=== PATIENT | male | born 1970 | race Caucasian/White ===

== ENCOUNTER 2017-06-14 00:19 | Inpatient (IN) | payer SELFPAY ==
[~2017-06-14] VITALS: Ht 172.7 cm; Wt 76.9 kg
[2017-06-14] VITALS (9 sets, daily range): BP systolic 126–200; BP diastolic 88–130; PULSE 69–110; RESP 16–20; TEMP 98–98.5; O2SAT 94–98
--- NOTE | 2017-06-14 00:40 | PD ---
HPI Chief Complaint: Mcgrath act Time Seen by Provider: 00:27 Travel History International Travel<30 days: No Contact w/Intl Traveler<30days: No Traveled to known affect area: No History of Present Illness HPI 46-year-old white male presents to emergency department under Mcgrath act by PD. The patient had sent text messages to his mother of a suicidal nature. The patient had stated that he was going to cut himself. He no longer wanted to be on this world. The patient's life has been spiraling out of control recently. He had lost his job. His mother had taken her vehicle back. He's had a history of alcohol abuse, smokes crack on occasion and opiate abuse. He just started using heroin in the last month. He was arrested and lost his job over it. Is currently unemployed. The patient here denies any true suicidal ideation. He denies any homicidal ideation. He denies any toxic ingestions. He denies any medical complaints. PFSH Past Medical History Narrative Medical Hypertension, hypercholesterolemia, substance abuse Arthritis: No Asthma: No Autoimmune Disease: No Blood Disorders: No Heart Rhythm Problems: No Cancer: No High Cholesterol: Yes Chemotherapy: No Congestive Heart Failure: No COPD: No Cerebrovascular Accident: No Diminished Hearing: No GERD: No Glaucoma: No Hepatitis: No Hiatal Hernia: No Hypertension: No Kidney Stones: Yes Psychiatric: No Myocardial Infarction: No Radiation Therapy: No Renal Failure: No Seizures: No Sleep Apnea: No Thyroid Disease: No Ulcer: No Tetanus Vaccination: < 5 Years Past Surgical History Surgical History: No Previous Surgery AICD: No Genitourinary Surgery: No Pacemaker: No Other Surgery: No Social History Alcohol Use: Yes Tobacco Use: Yes (1 ppd) Substance Use: Yes Allergies-Medications (Allergen,Severity, Reaction): Coded Allergies: No Known Allergies (Verified , 01/11/14) Reported Meds & Prescriptions Reported Meds & Active Scripts Active Review of Systems General / Constitutional: No: Fever Eyes: No: Visual changes HENT: No: Headaches Cardiovascular: No: Chest Pain or Discomfort Respiratory: No: Shortness of Breath Gastrointestinal: No: Abdominal Pain Genitourinary: No: Dysuria Musculoskeletal: No: Pain Skin: No Rash Neurologic: No: Weakness Psychiatric: Positive: Depression, Suicidal Ideations, Mood Disorder, Substance Abuse, No: Anxiety, Disorder of Thought, Homicidal Ideation Endocrine: No: Polydipsia Hematologic/Lymphatic: No: Easy Bruising Physical Exam Narrative GENERAL: Well-nourished, well-developed patient. SKIN: Warm and dry. HEAD: Normocephalic and atraumatic. EYES: No scleral icterus. No injection or drainage. ENT: No nasal drainage noted. Mucous membranes pink. Airway patent. NECK: Supple, trachea midline. Moves head freely without obvious discomfort. CARDIOVASCULAR: Regular rate and rhythm without murmurs, gallops, or rubs. RESPIRATORY: Breath sounds equal bilaterally. No accessory muscle use. GASTROINTESTINAL: Abdomen soft, non-tender, nondistended. EXTREMITIES: No cyanosis or edema. BACK: Nontender without obvious deformity. No CVA tenderness. NEURO: Patient is alert and oriented. no sensorimotor deficits. Nonfocal. Normal speech. PSYCH: No delusions. No auditory or visual hallucinations. Data Data Orders Orders Complete Blood Count With Diff (06/14/17 00:33) Comprehensive Metabolic Panel (06/14/17 00:33) Psych Screen (06/14/17 00:33) Drug Screen, Random Urine (06/14/17 00:33) Alcohol (Ethanol) (06/14/17 00:33) Salicylates (Aspirin) (06/14/17 00:33) Tylenol (Acetaminophen) (06/14/17 00:33) Lisinopril (Prinivil) (06/14/17 00:45) MDM Medical Decision Making Medical Screen Exam Complete: Yes Emergency Medical Condition: Yes Medical Record Reviewed: Yes Differential Diagnosis MDM: High Differential diagnoses: Schizophrenia, schizoaffective disorder, bipolar, anxiety, depression, adjustment reaction, mood disorder NOS, ODD, depressive disorder NOS, dementia, dementia with agitation, psychosis NOS, substance induced mood disorder, DMDD, Asperger syndrome, infection,electrolyte abnormality, malingering. Narrative Course Mental health screening discussed with the patient. Psychiatric screen ordered. The patient is been medically cleared. This is a 46-year-old white male with a history of substance abuse as well as poorly controlled hypertension due to compliance. He had recently lost his job , was arrested for buying heroin. His mother he lives with took back his vehicle that she had loaned to him. The patient states that his life is spiraling out of control. The patient is given his normal 20 mg dose of lisinopril. Is medical clearance for psychiatric admission, polysubstance abuse, hypertension Diagnosis Primary Impression: Medical clearance for psychiatric admission Additional Impressions: Polysubstance abuse Hypertension Qualified Codes: I10 - Essential (primary) hypertension Condition: Stable Curt Gaytan Jun 14, 2017 00:40
[2017-06-14] MEDS ORDERED: LISINOPRIL 20 MG TAB PO ONE (00:45)
[2017-06-14 04:19] LABS: ACETAMINOPHEN LESS THAN 2.0 MCG/ML (10.0-30.0); ALCOHOL 269 MG/DL (0-5); ALKALINE PHOSPHATASE 127 U/L (45-117); ALT (GPT) 134 U/L (12-78); ANION GAP 14 MEQ/L (5-15); AST (GOT) 118 U/L (15-37); BICARBONATE 23.1 MEQ/L (21.0-32.0); CHLORIDE 104 MEQ/L (98-107); GLOMERULAR FILTRATION RATE 92 ML/MIN (>89); POTASSIUM 2.9 MEQ/L (3.5-5.1); SODIUM (NA) 141 MEQ/L (136-145); TOTAL BILIRUBIN ADULT 0.5 MG/DL (0.2-1.0)
[2017-06-14 04:20] LABS: AUTOMATED NEUTROPHIL # 6.1 TH/MM3 (1.8-7.7); BASOPHIL # 0.1 TH/MM3 (0-0.2); BASOPHIL % 0.6 % (0.0-2.0); EOSINOPHIL # 0.3 TH/MM3 (0-0.4); EOSINOPHIL % 3.4 % (0.0-4.0); HEMATOCRIT 48.9 % (39.0-51.0); HEMO FLAGS DIFF FINAL; LYMPH % 28.7 % (9.0-44.0); LYMPHOCYTE # 2.9 TH/MM3 (1.0-4.8); MEAN CELL VOLUME 92.3 FL (80.0-100.0); MEAN CORPUSCULAR HGB CONC 34.7 % (32.0-36.0); MONO % 7.5 % (0.0-8.0); NEUT % 59.8 % (16.0-70.0); PLATELET COUNT 229 TH/MM3 (150-450); RED CELL DISTRIBUTION WIDTH 13.6 % (11.6-17.2); WHITE BLOOD COUNT 10.1 TH/MM3 (4.0-11.0)
[2017-06-14 04:21] LABS: BLOOD UREA NITROGEN 8 MG/DL (7-18)
[2017-06-14 05:00] LABS: AUTOMATED NEUTROPHIL # 5.7 TH/MM3 (1.8-7.7); BASOPHIL % 0.5 % (0.0-2.0); EOSINOPHIL # 0.4 TH/MM3 (0-0.4); EOSINOPHIL % 3.6 % (0.0-4.0); HEMATOCRIT 47.3 % (39.0-51.0); HEMO FLAGS DIFF FINAL; LYMPH % 29.3 % (9.0-44.0); LYMPHOCYTE # 2.9 TH/MM3 (1.0-4.8); MEAN CELL VOLUME 92.4 FL (80.0-100.0); MEAN CORPUSCULAR HEMOGLOBIN 31.4 PG (27.0-34.0); MONO % 8.6 % (0.0-8.0); PLATELET COUNT 213 TH/MM3 (150-450); RED BLOOD COUNT 5.12 MIL/MM3 (4.50-5.90); RED CELL DISTRIBUTION WIDTH 13.5 % (11.6-17.2); WHITE BLOOD COUNT 9.7 TH/MM3 (4.0-11.0)
[2017-06-14 05:16] LABS: ALT (GPT) 124 U/L (12-78)
[2017-06-14 05:24] LABS: ALKALINE PHOSPHATASE 113 U/L (45-117); ANION GAP 12 MEQ/L (5-15); AST (GOT) 111 U/L (15-37); BICARBONATE 25.8 MEQ/L (21.0-32.0); BLOOD UREA NITROGEN 7 MG/DL (7-18); CHLORIDE 102 MEQ/L (98-107); CREATINE KINASE 182 U/L (39-308); GLOMERULAR FILTRATION RATE 99 ML/MIN (>89); SODIUM (NA) 140 MEQ/L (136-145); TOTAL BILIRUBIN ADULT 0.4 MG/DL (0.2-1.0)
[2017-06-14 05:25] LABS: POTASSIUM 3.2 MEQ/L (3.5-5.1)
[2017-06-14] MEDS ORDERED: SODIUM CHLOR 0.9% 1000 ML INJ 1,000 ML IV SCH (06:41)
[2017-06-14] MEDS ORDERED: ONDANSETRON HCL 4 MG/2 ML VIAL IVP PRN (06:45)
[2017-06-14] MEDS ORDERED: SODIUM CHLORIDE 0.9% FLUSH 10 ML FLUSH IV FLUSH PRN (06:45)
[2017-06-14] MEDS ORDERED: LACTULOSE SYRUP 20 GM/30 ML CUP PO PRN (06:45)
[2017-06-14] MEDS ORDERED: ACETAMINOPHEN 325 MG TAB PO PRN (06:45)
[2017-06-14] MEDS ORDERED: BISACODYL 10 MG SUPP RECTAL PRN (06:45)
[2017-06-14] MEDS ORDERED: MAGNESIUM HYDROXIDE SUSP 30 ML CUP PO PRN (06:45)
[2017-06-14] MEDS ORDERED: SENNOSIDES 8.6 MG TAB PO PRN (06:45)
--- NOTE | 2017-06-14 06:48 | PD ---
Data Data Last Documented VS Vital Signs Date Time Temp Pulse Resp B/P (MAP) Pulse Ox O2 Delivery O2 Flow Rate FiO2 06/14/17 06:20 84 16 167/90 (115) 97 Nasal Cannula 2.00 06/14/17 00:36 98.5 Orders Orders Complete Blood Count With Diff (06/14/17 00:33) Comprehensive Metabolic Panel (06/14/17 00:33) Psych Screen (06/14/17 00:33) Drug Screen, Random Urine (06/14/17 00:33) Alcohol (Ethanol) (06/14/17 00:33) Salicylates (Aspirin) (06/14/17 00:33) Tylenol (Acetaminophen) (06/14/17 00:33) Lisinopril (Prinivil) (06/14/17 00:45) Creatine Kinase (Cpk) (06/14/17 04:00) Comprehensive Metabolic Panel (06/14/17 04:00) Lipase (06/14/17 04:00) Troponin I (06/14/17 04:00) Complete Blood Count With Diff (06/14/17 04:00) Admit Order (Ed Use Only) (06/14/17 ) Vital Signs (Adult) Q4H (06/14/17 06:38) Diet Npo (06/14/17 Breakfast) Activity Bed Rest (06/14/17 06:38) Labs Laboratory Tests Test 06/14/17 00:30 06/14/17 01:15 06/14/17 04:00 White Blood Count 10.1 TH/MM3 9.7 TH/MM3 Red Blood Count 5.30 MIL/MM3 5.12 MIL/MM3 Hemoglobin 17.0 GM/DL 16.1 GM/DL Hematocrit 48.9 % 47.3 % Mean Corpuscular Volume 92.3 FL 92.4 FL Mean Corpuscular Hemoglobin 32.0 PG 31.4 PG Mean Corpuscular Hemoglobin Concent 34.7 % 34.0 % Red Cell Distribution Width 13.6 % 13.5 % Platelet Count 229 TH/MM3 213 TH/MM3 Mean Platelet Volume 8.8 FL 9.4 FL Neutrophils (%) (Auto) 59.8 % 58.0 % Lymphocytes (%) (Auto) 28.7 % 29.3 % Monocytes (%) (Auto) 7.5 % 8.6 % Eosinophils (%) (Auto) 3.4 % 3.6 % Basophils (%) (Auto) 0.6 % 0.5 % Neutrophils # (Auto) 6.1 TH/MM3 5.7 TH/MM3 Lymphocytes # (Auto) 2.9 TH/MM3 2.9 TH/MM3 Monocytes # (Auto) 0.8 TH/MM3 0.8 TH/MM3 Eosinophils # (Auto) 0.3 TH/MM3 0.4 TH/MM3 Basophils # (Auto) 0.1 TH/MM3 0.0 TH/MM3 CBC Comment DIFF FINAL DIFF FINAL Differential Comment Blood Urea Nitrogen 8 MG/DL 7 MG/DL Creatinine 0.89 MG/DL 0.83 MG/DL Random Glucose 121 MG/DL 103 MG/DL Total Protein 8.3 GM/DL 7.8 GM/DL Albumin 4.1 GM/DL 3.7 GM/DL Calcium Level 8.6 MG/DL 8.2 MG/DL Alkaline Phosphatase 127 U/L 113 U/L Aspartate Amino Transf (AST/SGOT) 118 U/L 111 U/L Alanine Aminotransferase (ALT/SGPT) 134 U/L 124 U/L Total Bilirubin 0.5 MG/DL 0.4 MG/DL Sodium Level 141 MEQ/L 140 MEQ/L Potassium Level 2.9 MEQ/L 3.2 MEQ/L Chloride Level 104 MEQ/L 102 MEQ/L Carbon Dioxide Level 23.1 MEQ/L 25.8 MEQ/L Anion Gap 14 MEQ/L 12 MEQ/L Estimat Glomerular Filtration Rate 92 ML/MIN 99 ML/MIN Salicylates Level LESS THAN 1.7 MG/DL Acetaminophen Level LESS THAN 2.0 MCG/ML Ethyl Alcohol Level 269 MG/DL Urine Opiates Screen POS Urine Barbiturates Screen NEG Urine Amphetamines Screen NEG Urine Benzodiazepines Screen NEG Urine Cocaine Screen POS Urine Cannabinoids Screen NEG Total Creatine Kinase 182 U/L Troponin I LESS THAN 0.02 NG/ML Lipase 2923 U/L [facility] Medical Record Reviewed: Yes Supervised Visit with LIZZY: No Narrative Course I was called to the bedside because the patient complained of left-sided chest pain. Overall the workup is less concerning for a coronary pathology given the lipase of 2900. Tn and EKG normal. Case discussed with Dr. Feng for [facility]. Etiology of pancreatitis is unknown. Diagnosis Primary Impression: Medical clearance for psychiatric admission Additional Impressions: Polysubstance abuse Hypertension Qualified Codes: I10 - Essential (primary) hypertension Admitting Information Admitting Physician Requests: Admit Condition: Stable Kolby Hylton MD Jun 14, 2017 06:48
[2017-06-14] MEDS: DOCUSATE SODIUM 50 MG/SENNA 8.6 MG TAB PO SCH ×2 (09:00→20:58)
[2017-06-14] MEDS: FAMOTIDINE 20 MG/2 ML VIAL IV PUSH SCH ×2 (09:00→20:58)
[2017-06-14] MEDS: SODIUM CHLORIDE 0.9% FLUSH 10 ML FLUSH IV FLUSH SCH ×2 (09:00→20:57)
--- NOTE | 2017-06-14 11:19 | PD.PSY.CON ---
Provisional Diagnosis Admission Date Jun 14, 2017 at 06:39 Tavares I. Substance induced mood disorder, cocaine abuse, opiate abuse, alcohol abuse/ intoxication History of Present Illness Service Psychiatry Consult Requested By Attending MFransisco. Reason for Consult [facility] act Primary Care Physician Dwayne Boyd MD HPI Patient is a 46-year-old white male initially brought in under [facility] act after he tacks did message to his mother that he wished to end his life. Patient seen screened in the ED urine toxicology positive for opiates and cocaine blood alcohol level of 296. Patient also complained of left-sided chest pain and was admitted to the medical unit for further assessment of that issue. SSc patient related to [facility] act. Patient seen in his room nurse Lianna present throughout session patient is alert and oriented calm cooperative slender balding white male. He is calm cooperative with me. He says he is somewhat frustrated with losing his job and having a vehicle and not satisfied with relationship with his children. He denies any suicidal homicidal ideation intent or plan at any time with this. He denies any previous suicidality ideation intent or plan or attempt. He denies any prior psychiatric contact hospitalizations his psychotropic medications. Patient gives a long history of multiple drug abuse including hallucinogenic's mushrooms opiates benzodiazepines including intravenous drug use of heroin and perhaps Dilaudid. Demises the frequency of the cocaine in the opiate use. The acknowledges alcohol use essentially every day more the evening of hard liquor and beer. He acknowledges 2-3 DUIs. He is acknowledges multiple detoxes in the past. In any event at the present time patient does not meet Mcgrath act criteria I will lift the [facility] act. There is no recommendation for medication by me as okay by psych for discharge and is medically cleared and stable. Mother wishes further to address his addictions she may, at her discretion, follow [facility] staff on her son. Otherwise I could recommend voluntary outpatient substance abuse assessment at [facility], and also referral to AA and NA Review of Systems Constitutional: DENIES: Diaphoretic episodes, Fatigue, Fever, Weight gain, Weight loss, Chills, Dizziness, Change in appetite, Night Sweats Endocrine: DENIES: Heat/cold intolerance, Polydipsia, Polyuria, Polyphagia Eyes: DENIES: Blurred vision, Diplopia, Eye inflammation, Eye pain, Vision loss , Photosensitivity, Double Vision Ears, nose, mouth, throat: DENIES: Tinnitus, Hearing loss, Vertigo, Nasal discharge, Oral lesions, Throat pain, Hoarseness, Ear Pain, Running Nose, Epistaxis, Sinus Pain, Toothache, Odynophagia Respiratory: DENIES: Apneas, Cough, Snoring, Wheezing, Hemoptysis, Sputum production, Shortness of breath Cardiovascular: DENIES: Chest pain, Palpitations, Syncope, Dyspnea on Exertion , PND, Lower Extremity Edema, Orthopnea, Claudication Gastrointestinal: DENIES: Abdominal pain, Black stools, Bloody stools, Constipation, Diarrhea, Nausea, Vomiting, Difficulty Swallowing, Anorexia Genitourinary: DENIES: Sexual dysfunction, Urinary frequency, Urinary incontinence, Urgency, Hematuria, Dysuria, Nocturia, Penile Discharge, Testicular Pain, Testicular Swelling Musculoskeletal: DENIES: Joint pain, Muscle aches, Stiffness, Joint Swelling, Back pain, Neck pain Integumentary: DENIES: Abnormal pigmentation, Nail changes, Pruritus, Rash Hematologic/lymphatic: DENIES: Bruising, Lymphadenopathy Immunologic/allergic: DENIES: Eczema, Urticaria Neurologic: DENIES: Abnormal gait, Headache, Localized weakness, Paresthesias, Seizures, Speech Problems, Tremor, Poor Balance Psychiatric: COMPLAINS OF: Depression (mild somewhat environmentally related), DENIES: Anxiety, Confusion, Mood changes, Hallucinations, Agitation, Suicidal Ideation, Homicidal Ideation, Delusions Past Family Social History Coded Allergies: No Known Allergies (Verified Allergy, Unknown, 06/14/17) Past Medical History See MedSur assessments Current Medications Medications (Trade) Dose Ordered Sig/Karolina Route Start Time Stop Time Status Last Admin Sodium Chloride 1,000 ml @ 100 mls/hr Q10H IV 06/14/17 06:41 06/14/17 07:27 (NS Flush) 2 ml UNSCH PRN IV FLUSH 06/14/17 06:45 (NS Flush) 2 ml BID IV FLUSH 06/14/17 09:00 (Zofran Inj) 4 mg Q6H PRN IVP 06/14/17 06:45 (Tylenol) 650 mg Q6H PRN PO 06/14/17 06:45 (Morphine Inj) 2 mg Q3H PRN IV 06/14/17 07:00 (Roxicodone) 5 mg Q4H PRN PO 06/14/17 06:45 (Alla-Colace) 1 tab BID PO 06/14/17 09:00 (Milk Of Magnesia Liq) 30 ml Q12H PRN PO 06/14/17 06:45 (Senokot) 17.2 mg Q12H PRN PO 06/14/17 06:45 (Dulcolax Supp) 10 mg DAILY PRN RECTAL 06/14/17 06:45 (Lactulose Liq) 30 ml DAILY PRN PO 06/14/17 06:45 (Pepcid Inj) 20 mg Q12HR IV PUSH 06/14/17 09:00 Family Psych History Patient denies Social History Patient his 2 children Patient's Strengths (min. 2) Patient verbal irritable [facility] appears to have supportive mother Physical Exam Please see MedSur assessments Vital Signs Vital Signs Date Time Temp Pulse Resp B/P (MAP) Pulse Ox O2 Delivery O2 Flow Rate FiO2 06/14/17 07:13 79 20 154/88 (110) 98 Nasal Cannula 2.00 06/14/17 00:36 98.5 Lab Results Test 06/14/17 00:30 06/14/17 01:15 06/14/17 04:00 White Blood Count 10.1 TH/MM3 9.7 TH/MM3 Red Blood Count 5.30 MIL/MM3 5.12 MIL/MM3 Hemoglobin 17.0 GM/DL 16.1 GM/DL Hematocrit 48.9 % 47.3 % Mean Corpuscular Volume 92.3 FL 92.4 FL Mean Corpuscular Hemoglobin 32.0 PG 31.4 PG Mean Corpuscular Hemoglobin Concent 34.7 % 34.0 % Red Cell Distribution Width 13.6 % 13.5 % Platelet Count 229 TH/MM3 213 TH/MM3 Mean Platelet Volume 8.8 FL 9.4 FL Neutrophils (%) (Auto) 59.8 % 58.0 % Lymphocytes (%) (Auto) 28.7 % 29.3 % Monocytes (%) (Auto) 7.5 % 8.6 % Eosinophils (%) (Auto) 3.4 % 3.6 % Basophils (%) (Auto) 0.6 % 0.5 % Neutrophils # (Auto) 6.1 TH/MM3 5.7 TH/MM3 Lymphocytes # (Auto) 2.9 TH/MM3 2.9 TH/MM3 Monocytes # (Auto) 0.8 TH/MM3 0.8 TH/MM3 Eosinophils # (Auto) 0.3 TH/MM3 0.4 TH/MM3 Basophils # (Auto) 0.1 TH/MM3 0.0 TH/MM3 CBC Comment DIFF FINAL DIFF FINAL Differential Comment Blood Urea Nitrogen 8 MG/DL 7 MG/DL Creatinine 0.89 MG/DL 0.83 MG/DL Random Glucose 121 MG/DL 103 MG/DL Total Protein 8.3 GM/DL 7.8 GM/DL Albumin 4.1 GM/DL 3.7 GM/DL Calcium Level 8.6 MG/DL 8.2 MG/DL Alkaline Phosphatase 127 U/L 113 U/L Aspartate Amino Transf (AST/SGOT) 118 U/L 111 U/L Alanine Aminotransferase (ALT/SGPT) 134 U/L 124 U/L Total Bilirubin 0.5 MG/DL 0.4 MG/DL Sodium Level 141 MEQ/L 140 MEQ/L Potassium Level 2.9 MEQ/L 3.2 MEQ/L Chloride Level 104 MEQ/L 102 MEQ/L Carbon Dioxide Level 23.1 MEQ/L 25.8 MEQ/L Anion Gap 14 MEQ/L 12 MEQ/L Estimat Glomerular Filtration Rate 92 ML/MIN 99 ML/MIN Salicylates Level LESS THAN 1.7 MG/DL Acetaminophen Level LESS THAN 2.0 MCG/ML Ethyl Alcohol Level 269 MG/DL Urine Opiates Screen POS Urine Barbiturates Screen NEG Urine Amphetamines Screen NEG Urine Benzodiazepines Screen NEG Urine Cocaine Screen POS Urine Cannabinoids Screen NEG Total Creatine Kinase 182 U/L Troponin I LESS THAN 0.02 NG/ML Lipase 2923 U/L Mental Status Examination Appearance: Appropriate Consciousness: Alert Orientation: x4 Motor Activity: Normal gait Speech: Unremarkable Language: Adequate Fund of Knowledge: Adequate Attention and Concentration: Adequate Memory: Unremarkable Mood: Appropriate, Other (mildly dysphoric) Affect: Other (slight decreased range and intensity) Thought Process & Associations: Intact Thought Content: Appropriate Hallucination Type: None Delusion Type: None Suicidal Ideation: No Suicidal Plan: No Suicidal Intention: No Homicidal Ideation: No Homicidal Plan: No Homicidal Intention: No Insight: Fair Judgment: Poor Assessment & Plan Problem List: (1) Substance induced mood disorder ICD Codes: F19.94 - Other psychoactive substance use, unspecified with psychoactive substance-induced mood disorder (2) Alcohol abuse with intoxication ICD Codes: F10.129 - Alcohol abuse with intoxication, unspecified (3) Cocaine abuse ICD Codes: F14.10 - Cocaine abuse, uncomplicated (4) Opiate abuse, continuous ICD Codes: F11.10 - Opioid abuse, uncomplicated Assessment & Plan Estimated LOS: days patient does not meet Mcgrath criteria will lift Mcgrath act. Is okay by psych for discharge when medically clear and stable, no Rx by me, strong referral [facility] act involuntary outpatient substance abuse assessment, strong referral to AA/and a. Would suggest if mother wishes to further adjust patient's addictions she may follow act with court. Thanks for consult I'll sign off the present time please reconsult as necessary Discharge Planning See above Request HC Surrog/Guard Advoc?: No Lorenzo Fatima MD Jun 14, 2017 11:19
--- NOTE | 2017-06-14 12:27 | EKG ---
Date Performed: 06/14/2017 Time Performed: 03:06:20 PTAGE: 46 years EKG: Sinus rhythm POSSIBLE LEFT VENTRICULAR HYPERTROPHY PROLONGED QT INTERVAL ABNORMAL ECG NO PREVIOUS TRACING DOCTOR: Barron Ty Interpretating Date/Time 06/14/2017 12:26:40
--- NOTE | 2017-06-14 12:59 | HHI.HP ---
HPI Service [facility] Primary Care Physician Dwayne Boyd MD Admission Diagnosis Pancreatitis, Chest Pain, EtOH Intox, PSA Diagnoses: Chief Complaint: Chest pain/abdominal pain Travel History International Travel<30 Days: No Contact w/Intl Traveler <30 Da: No Traveled to Known Affected Are: No History of Present Illness This is a 46-year-old male with history of hypertension, dyslipidemia and substance abuse Mcgrath acted for suicidal ideations. At the emergency department , patient complaining of chest pain, workup was negative for cardiac pathology but lipase was elevated. Patient admitted for pancreatitis. Presently, patient is complaining of mild chest pain, anxiety like, nonradiating, not associated with nausea, vomiting or shortness of breath, described as a vague. He is also complaining of mild abdominal pain and cough. Cough is productive with greenish sputum with mild shortness of breath. Patient is afebrile, presently no nausea, vomiting or diarrhea. Patient however had a recent episode of nausea, vomiting and diarrhea which has since resolved. Review of Systems ROS Limitations: Other (All other pertinent systems were reviewed and are negative.) Past Family Social History Past Medical History Hypertension Dyslipidemia Substance abuse Kidney stones Tobacco abuse Past Surgical History Ankle surgery ESWL Reported Medications None Allergies: Coded Allergies: No Known Allergies (Verified Allergy, Unknown, 06/14/17) Family History No history of cardiac pathology in the family Social History Smokes about one pack a day for the last 30 years Has been drinking about 6-8 shots of alcohol every day. Physical Exam Vital Signs Vital Signs Date Time Temp Pulse Resp B/P (MAP) Pulse Ox O2 Delivery O2 Flow Rate FiO2 06/14/17 08:00 98.2 82 16 160/99 (119) 97 06/14/17 07:13 79 20 154/88 (110) 98 Nasal Cannula 2.00 06/14/17 06:20 84 16 167/90 (115) 97 Nasal Cannula 2.00 06/14/17 03:50 84 06/14/17 00:39 18 06/14/17 00:36 98.5 110 18 200/130 (153) 98 Physical Exam Not in distress, well-nourished, looks stated age, anxious. PERRL, pink conjunctiva without injection, anicteric Nose without bleeding, airway patent, oropharynx clear Supple neck, no masses or thyromegaly, trachea midline Normal rate and regular rhythm, no murmurs gallops or rubs appreciated. Clear to auscultation and symmetric bilaterally, normal respiratory effort. Coughing with deep inhalation. Normal bowel sounds, soft, epigastric tenderness, nondistended, no guarding. Extremities without clubbing, cyanosis, or edema. No rash of generalized distribution. Skin is warm and dry. AAO x3, no cranial nerve deficits, moves all 4 extremities, no focal neurologic deficits Laboratory Laboratory Tests Test 06/14/17 00:30 06/14/17 01:15 06/14/17 04:00 06/14/17 12:20 White Blood Count 10.1 9.7 Red Blood Count 5.30 5.12 Hemoglobin 17.0 16.1 Hematocrit 48.9 47.3 Mean Corpuscular Volume 92.3 92.4 Mean Corpuscular Hemoglobin 32.0 31.4 Mean Corpuscular Hemoglobin Concent 34.7 34.0 Red Cell Distribution Width 13.6 13.5 Platelet Count 229 213 Mean Platelet Volume 8.8 9.4 Neutrophils (%) (Auto) 59.8 58.0 Lymphocytes (%) (Auto) 28.7 29.3 Monocytes (%) (Auto) 7.5 8.6 Eosinophils (%) (Auto) 3.4 3.6 Basophils (%) (Auto) 0.6 0.5 Neutrophils # (Auto) 6.1 5.7 Lymphocytes # (Auto) 2.9 2.9 Monocytes # (Auto) 0.8 0.8 Eosinophils # (Auto) 0.3 0.4 Basophils # (Auto) 0.1 0.0 CBC Comment DIFF FINAL DIFF FINAL Differential Comment Blood Urea Nitrogen 8 7 Creatinine 0.89 0.83 Random Glucose 121 103 Total Protein 8.3 7.8 Albumin 4.1 3.7 Calcium Level 8.6 8.2 Alkaline Phosphatase 127 113 Aspartate Amino Transf (AST/SGOT) 118 111 Alanine Aminotransferase (ALT/SGPT) 134 124 Total Bilirubin 0.5 0.4 Sodium Level 141 140 Potassium Level 2.9 3.2 Chloride Level 104 102 Carbon Dioxide Level 23.1 25.8 Anion Gap 14 12 Estimat Glomerular Filtration Rate 92 99 Salicylates Level LESS THAN 1.7 Acetaminophen Level LESS THAN 2.0 Ethyl Alcohol Level 269 Urine Opiates Screen POS Urine Barbiturates Screen NEG Urine Amphetamines Screen NEG Urine Benzodiazepines Screen NEG Urine Cocaine Screen POS Urine Cannabinoids Screen NEG Total Creatine Kinase 182 Troponin I LESS THAN 0.02 Lipase 2923 Result Diagram: 06/14/1739906/14/17399 Caprini VTE Risk Assessment Caprini VTE Risk Assessment: No/Low Risk (score <= 1) Caprini Risk Assessment Model Point Value = 1 Point Value = 2 Point Value = 3 Point Value = 5 Age 41-60 Minor surgery BMI > 25 kg/m2 Swollen legs Varicose veins or History of unexplained or recurrent spontaneous Oral contraceptives or hormone replacement Sepsis (< 1 month) Serious lung disease, including pneumonia (< 1 month) Abnormal pulmonary function Acute myocardial infarction Congestive heart failure (< 1 month) History of inflammatory bowel disease Medical patient at bed rest Age 61-74 Arthroscopic surgery Major open surgery (> 45 min) Laparoscopic surgery (> 45 min) Malignancy Confined to bed (> 72 hours) Immobilizing plaster cast Central venous access Age >= 75 History of VTE Family history of VTE Factor V Leiden Prothrombin [id number] Lupus anticoagulant Anticardiolipin antibodies Elevated serum homocysteine Heparin-induced thrombocytopenia Other congenital or acquired thrombophilia Stroke (< 1 month) Elective arthroplasty Hip, pelvis, or leg fracture Acute spinal cord injury (< 1 month) Prophylaxis Regimen Total Risk Factor Score Risk Level Prophylaxis Regimen 0-1 Low Early ambulation 2 Moderate Order ONE of the following: *Sequential Compression Device (SCD) *Heparin 5000 units SQ BID 3-4 Higher Order ONE of the following medications: *Heparin 5000 units SQ TID *Enoxaparin/Lovenox 40 mg SQ daily (WT < 150 kg, CrCl > 30 mL/min) *Enoxaparin/Lovenox 30 mg SQ daily (WT < 150 kg, CrCl > 10-29 mL/min) *Enoxaparin/Lovenox 30 mg SQ BID (WT < 150 kg, CrCl > 30 mL/min) AND/OR *Sequential Compression Device (SCD) 5 or more Highest Order ONE of the following medications: *Heparin 5000 units SQ TID (Preferred with Epidurals) *Enoxaparin/Lovenox 40 mg SQ daily (WT < 150 kg, CrCl > 30 mL/min) *Enoxaparin/Lovenox 30 mg SQ daily (WT < 150 kg, CrCl > 10-29 mL/min) *Enoxaparin/Lovenox 30 mg SQ BID (WT < 150 kg, CrCl > 30 mL/min) AND *Sequential Compression Device (SCD) Assessment and Plan Problem List: (1) Acute alcoholic pancreatitis ICD Code: K85.20 - Alcohol induced acute pancreatitis without necrosis or infection Status: Acute (2) Chest pain ICD Code: R07.9 - Chest pain, unspecified Status: Acute (3) Alcohol withdrawal ICD Code: F10.239 - Alcohol dependence with withdrawal, unspecified Status: Acute (4) Hypertension ICD Code: I10 - Essential (primary) hypertension Status: Chronic Assessment and Plan This is a 46-year-old male with history of hypertension and dyslipidemia admitted for suicidal ideations Chest pain-may be secondary to anxiety, first troponin negative, pending second troponin. EKG reviewed showed LVH, nonspecific. Repeat EKG and serial troponins. Likely noncardiac. Could also be referred pain from pancreatitis Acute alcohol related pancreatitis- patient is recent alcohol use, lipase is about 3000, no need for imaging, nothing by mouth, continue IVF: w/ D5NS, recheck lipase, bowel rest, possible discharge tomorrow. Continue Pepcid IV. Alcohol abuse, possible withdrawal symptoms-start CIWA protocol, start thiamine , folate and multivitamins orally when diet resumed Cough-could be smoker's cough, doubt pneumonia, check sputum culture, chest x- ray. Doubt pneumonia, no leukocytosis. Hypertension-may be related to alcohol withdrawal, start lisinopril when diet resumed, Vasotec as needed for now. Hypokalemia-replace via IV, check magnesium Depression, suicidal ideations-appreciate psychiatry input, Mcgrath act lifted. DVT prophylaxis: Low risk, SCDs. Code Status Possible discharge tomorrow when pancreatitis resolves and tolerating diet. Physician Certification 2 Midnight Certification Type: Admission for Inpatient Services Order for Inpatient Services The services are ordered in accordance with Medicare regulations or non- Medicare payer requirements, as applicable. In the case of services not specified as inpatient-only, they are appropriately provided as inpatient services in accordance with the 2-midnight benchmark. Estimated LOS (days): 2 days is the estimated time the patient will need to remain in the hospital, assuming treatment plan goals are met and no additional complications. Post-Hospital Plan: Home Ilir Ceballos MD Jun 14, 2017 12:59
[2017-06-14] MEDS ORDERED: RESP: ALBUTEROL 2.5 MG/IPRATROPIUM 0.5 MG NEB (PRN) NEB (13:15)
[2017-06-14] MEDS ORDERED: ENALAPRILAT 1.25 MG/ML VIAL IV PUSH PRN (13:30)
[2017-06-14] MEDS ORDERED: LORazepam 2 MG/ML VIAL IV PUSH PRN ×3 (13:30)
[2017-06-14] MEDS ORDERED: FLUMAZENIL 0.5 MG/5 ML VIAL IV PUSH PRN (13:30)
[2017-06-14] MEDS: NICOTINE 21 MG/24 HR PATCH T-DERMAL SCH (14:15)
[2017-06-14] MEDS: D5-NS + KCL 20 MEQ INJ 1,000 ML IV SCH (14:15)
--- NOTE | 2017-06-14 15:17 | RADRPT ---
EXAM DATE/TIME: 06/14/2017 15:04 [facility] COMPARISON: No previous studies available for comparison. INDICATIONS : Cough with pain in lower chest. MEDICAL HISTORY : None. SURGICAL HISTORY : None. ENCOUNTER: Initial ACUITY: 1 day PAIN SCORE: 4/10 LOCATION: Bilateral lower chest FINDINGS: PA and lateral views of the chest demonstrate the lungs to be symmetrically aerated without evidence of mass, infiltrate or effusion. The cardiomediastinal contours are unremarkable. Osseous structure s are intact. CONCLUSION: No acute disease. Thomas Swenson MD on June 14, 2017 at 15:15 Board Certified Radiologist. This report was verified electronically.
[2017-06-14] MEDS: LORazepam 2 MG/ML VIAL IV PUSH PRN (16:45)
[2017-06-14] MEDS ORDERED: LISI-515 PO (17:47)
[2017-06-14] MEDS: MORPHINE SULFATE 2 MG/ML INJ IV PRN (20:58)
[2017-06-15] VITALS: BP 174/112; PULSE 68; RESP 17; TEMP 98.7; O2SAT 97
[2017-06-15] MEDS: D5-NS + KCL 20 MEQ INJ 1,000 ML IV SCH ×2 (01:47→08:27)
[2017-06-15 04:00] VITALS: BP 162/100; PULSE 58; RESP 18; TEMP 98.6; O2SAT 98
[2017-06-15 05:05] LABS: AUTOMATED NEUTROPHIL # 4.1 TH/MM3 (1.8-7.7); BASOPHIL % 0.5 % (0.0-2.0); EOSINOPHIL # 0.5 TH/MM3 (0-0.4); EOSINOPHIL % 7.5 % (0.0-4.0); HEMATOCRIT 46.7 % (39.0-51.0); HEMO FLAGS DIFF FINAL; LYMPH % 26.1 % (9.0-44.0); LYMPHOCYTE # 1.8 TH/MM3 (1.0-4.8); MEAN CELL VOLUME 93.9 FL (80.0-100.0); MEAN CORPUSCULAR HEMOGLOBIN 32.1 PG (27.0-34.0); MEAN CORPUSCULAR HGB CONC 34.2 % (32.0-36.0); MONO % 6.7 % (0.0-8.0); NEUT % 59.2 % (16.0-70.0); PLATELET COUNT 157 TH/MM3 (150-450); RED BLOOD COUNT 4.98 MIL/MM3 (4.50-5.90); RED CELL DISTRIBUTION WIDTH 13.3 % (11.6-17.2); WHITE BLOOD COUNT 6.9 TH/MM3 (4.0-11.0)
[2017-06-15 05:29] LABS: ALT (GPT) 102 U/L (12-78); ANION GAP 8 MEQ/L (5-15); AST (GOT) 96 U/L (15-37); BLOOD UREA NITROGEN 7 MG/DL (7-18); CHLORIDE 106 MEQ/L (98-107); GLOMERULAR FILTRATION RATE 115 ML/MIN (>89); MAGNESIUM 1.8 MG/DL (1.5-2.5); POTASSIUM 3.2 MEQ/L (3.5-5.1); SODIUM (NA) 139 MEQ/L (136-145)
[2017-06-15 05:32] LABS: ALKALINE PHOSPHATASE 106 U/L (45-117); TOTAL BILIRUBIN ADULT 1.1 MG/DL (0.2-1.0)
[2017-06-15] MEDS: MORPHINE SULFATE 2 MG/ML INJ IV PRN (06:07)
[2017-06-15] MEDS: LORazepam 2 MG/ML VIAL IV PUSH PRN (06:07)
[2017-06-15 07:51] VITALS: PULSE 67
[2017-06-15 08:01] VITALS: BP 156/100; PULSE 69; RESP 18; TEMP 97.9; O2SAT 95
[2017-06-15] MEDS: DOCUSATE SODIUM 50 MG/SENNA 8.6 MG TAB PO SCH (08:25)
[2017-06-15] MEDS: NICOTINE 21 MG/24 HR PATCH T-DERMAL SCH (08:26)
[2017-06-15] MEDS: SODIUM CHLORIDE 0.9% FLUSH 10 ML FLUSH IV FLUSH SCH (08:28)
[2017-06-15] MEDS: FAMOTIDINE 20 MG/2 ML VIAL IV PUSH SCH (08:34)
[2017-06-15] MEDS ORDERED: REMOVE OLD PATCH T-DERMAL SCH (09:00)
--- NOTE | 2017-06-15 09:18 | HHI.PR ---
Subjective Remarks The patient says that his abdominal pain has stopped. He denies any chest pain. He would like to eat something. He said he will try to get plugged back in with AA or something like that. Discussed with nursing. Objective Vitals Vital Signs Date Time Temp Pulse Resp B/P (MAP) Pulse Ox O2 Delivery O2 Flow Rate FiO2 06/15/17 08:01 97.9 69 18 156/100 (118) 95 06/15/17 04:00 98.6 58 18 162/100 (120) 98 06/15/17 04:00 Room Air 06/15/17 00:00 98.7 68 17 174/112 (132) 97 06/15/17 00:00 Room Air 06/14/17 20:07 73 06/14/17 20:00 98.5 74 17 126/108 (114) 97 06/14/17 17:47 164/100 (121) 06/14/17 16:00 98.1 69 20 160/100 (120) 94 06/14/17 12:00 98.0 69 20 160/110 (127) 94 I/O 06/14/17 06/14/17 06/14/17 06/15/17 06/15/17 06/15/17 07:00 15:00 23:00 07:00 15:00 23:00 Intake Total 969 ml Output Total 250 ml 500 ml Balance -250 ml 469 ml Intake Oral 0 ml IV Total 969 ml Output Urine Total 250 ml 500 ml # Voids 4 Result Diagram: 06/15/17 0420 06/15/17 0420 Imaging Last Impressions Chest X-Ray 06/14/17 0000 Signed Impressions: Service Date/Time: Wednesday, June 14, 2017 15:04 - CONCLUSION: No acute disease. Thomas Swenson MD Objective Remarks Not in distress, well-nourished PERRL, pink conjunctiva without injection, anicteric Nose without bleeding, airway patent, oropharynx clear Supple neck, no masses or thyromegaly, trachea midline Normal rate and regular rhythm, no murmurs gallops or rubs appreciated. Clear to auscultation and symmetric bilaterally, normal respiratory effort. Coughing with deep inhalation. Normal bowel sounds, soft, nontender, nondistended, no guarding. Extremities without clubbing, cyanosis, or edema. No rash of generalized distribution. Skin is warm and dry. AAO x3, no cranial nerve deficits, moves all 4 extremities, no focal neurologic deficits Mood and affect appropriate Medications and IVs Current Medications Medications (Trade) Dose Ordered Sig/Karolina Route Start Time Stop Time Status Last Admin (NS Flush) 2 ml UNSCH PRN IV FLUSH 06/14/17 06:45 (NS Flush) 2 ml BID IV FLUSH 06/14/17 09:00 06/14/17 20:57 (Zofran Inj) 4 mg Q6H PRN IVP 06/14/17 06:45 (Tylenol) 650 mg Q6H PRN PO 06/14/17 06:45 (Morphine Inj) 2 mg Q3H PRN IV 06/14/17 07:00 06/15/17 06:07 (Roxicodone) 5 mg Q4H PRN PO 06/14/17 06:45 (Alla-Colace) 1 tab BID PO 06/14/17 09:00 (Milk Of Magnesia Liq) 30 ml Q12H PRN PO 06/14/17 06:45 (Senokot) 17.2 mg Q12H PRN PO 06/14/17 06:45 (Dulcolax Supp) 10 mg DAILY PRN RECTAL 06/14/17 06:45 (Lactulose Liq) 30 ml DAILY PRN PO 06/14/17 06:45 (Pepcid Inj) 20 mg Q12HR IV PUSH 06/14/17 09:00 06/15/17 08:34 Potassium Chloride/Dextrose/ Sod Cl 1,000 ml @ 125 mls/hr Q8H IV 06/14/17 14:00 06/15/17 08:27 (Duoneb Neb) 1 ampule Q6HR NEB PRN NEB 06/14/17 13:15 (Romazicon Inj) 0.2 mg Q1M PRN IV PUSH 06/14/17 13:30 (Ativan Inj) 1 mg Q4H PRN IV PUSH 06/14/17 13:30 06/15/17 06:07 (Ativan Inj) 2 mg Q2H PRN IV PUSH 06/14/17 13:30 (Ativan Inj) 2 mg Q1H PRN IV PUSH 06/14/17 13:30 (Ativan Inj) 2 mg Q15M PRN IV PUSH 06/14/17 13:30 (Vasotec Inj) 1.25 mg Q6H PRN IV PUSH 06/14/17 13:30 06/14/17 23:22 (Habitrol 21 Mg Patch.24 Hr) 1 patch DAILY T-DERMAL 06/14/17 13:30 06/15/17 08:26 Miscellaneous Information 1 DAILY T-DERMAL 06/15/17 09:00 A/P Problem List: (1) Acute alcoholic pancreatitis ICD Code: K85.20 - Alcohol induced acute pancreatitis without necrosis or infection Status: Acute (2) Chest pain ICD Code: R07.9 - Chest pain, unspecified Status: Acute (3) Alcohol withdrawal ICD Code: F10.239 - Alcohol dependence with withdrawal, unspecified Status: Acute (4) Hypertension ICD Code: I10 - Essential (primary) hypertension Status: Chronic Assessment and Plan This is a 46-year-old male with history of hypertension and dyslipidemia admitted for suicidal ideations Chest pain Resolved. Likely secondary to anxiety, pancreatitis. Trops negative x 3. EKG reviewed showed LVH, nonspecific. Likely noncardiac. Acute alcohol related pancreatitis- patient had recent alcohol use, lipase was about 3000, resolved. - continue IVF: w/ D5NS. - Continue Pepcid IV. Change to PO Protonix upon discharge. - ADAT. Alcohol abuse- start CIWA protocol. Refer to resources upon discharge. The pt receive cessation instruction. Cough- chest x-ray unremarkable. Possibly s/t ACEi. Outpt follow-up. Hypertension-may be related to alcohol withdrawal. Resume home lisinopril. Vasotec as needed. Hypokalemia-replace via IV. Start PO KCl supplementation. Depression, suicidal ideations-appreciate psychiatry input, Mcgrath act lifted. Outpt follow-up. DVT prophylaxis: Low risk, SCDs. Discharge Planning D/c home if tolerating meals Jason Webb DO Jun 15, 2017 09:18
[2017-06-15] MEDS ORDERED: LISI-515 PO (09:26)
[2017-06-15] MEDS ORDERED: PROT40TA PO (09:26)
[2017-06-15] MEDS ORDERED: POTA-163 PO (09:26)
[2017-06-15] MEDS ORDERED: POTASSIUM CHLORIDE 20 MEQ CONTROLLED RELEASE TAB PO ONE (09:30)
--- NOTE | 2017-06-15 16:05 | EKG ---
Date Performed: 06/14/2017 Time Performed: 13:52:27 PTAGE: 46 years EKG: SINUS BRADYCARDIA POSSIBLE LEFT VENTRICULAR HYPERTROPHY PROLONGED QT INTERVAL Compared to p rior tracing no significant change ABNORMAL ECG PREVIOUS TRACING : 06/14/2017 03.06 DOCTOR: Kelvin Dukes Interpretating Date/Time 06/15/2017 16:05:08
== END 2017-06-15 12:33 | disposition home or self-care (01) | DRG 439 ==
LOC: NEPD 00:19 → NEDA 06:39 → N04A 08:06
PROVIDERS: ADMIT Hospitalist; ATTEND Hospitalist
DX: K85.20 Alcohol induced acute pancreatitis without necrosis or infection (principal); R45.851 Suicidal ideations; F10.230 Alcohol dependence with withdrawal, uncomplicated; I10 Essential (primary) hypertension; R07.89 Other chest pain; F41.9 Anxiety disorder, unspecified; F17.210 Nicotine dependence, cigarettes, uncomplicated; Y90.8 Blood alcohol level of 240 mg/100 ml or more; E87.6 Hypokalemia; F32.9 Major depressive disorder, single episode, unspecified; E78.00 Pure hypercholesterolemia, unspecified; F10.220 Alcohol dependence with intoxication, uncomplicated; F14.14 Cocaine abuse with cocaine-induced mood disorder; F11.14 Opioid abuse with opioid-induced mood disorder
CPT/HCPCS: 71020; 80053; 80307; 82550; 83690; 83735; 84484; 85025; 93005; J2060; J2270; J3480; J7030

== ENCOUNTER 2017-08-06 04:09 | Emergency (ER) | payer SELFPAY ==
[~2017-08-06] VITALS: Ht 172.7 cm; Wt 80.0 kg
[~2017-08-06 04:09] MED LIST: LISI-515 PO; POTA-163 PO; PROT40TA PO
[2017-08-06 04:10] VITALS: BP 182/115; PULSE 90; RESP 16; TEMP 98; O2SAT 96
[2017-08-06] MEDS ORDERED: ALUMINUM/MAGNESIUM/SIMETH 30 ML CUP PO ONE (04:45)
[2017-08-06] MEDS ORDERED: SODIUM CHLOR 0.9% 1000 ML INJ 1,000 ML IV SCH (04:45)
[2017-08-06] MEDS ORDERED: FAMOTIDINE 20 MG/2 ML VIAL IV PUSH ONE (04:45)
[2017-08-06] MEDS ORDERED: ONDANSETRON HCL 4 MG/2 ML VIAL IVP ONE (04:45)
--- NOTE | 2017-08-06 04:51 | PD ---
HPI Chief Complaint: Chest Pain Time Seen by Provider: 04:23 Travel History International Travel<30 days: No Contact w/Intl Traveler<30days: No Traveled to known affect area: No History of Present Illness HPI 46-year-old male complains of chest pain and right flank pain. Patient states that he has intermittent right flank pain for the past week. Patient started having sharp left chest pain with radiation to left arm this morning. Patient states that the chest pain started about 2 hours prior to arrival. H&P states that he vomited once this morning. Patient denies any headache. Patient denies any shortness of breath. Patient states that he has mild burning pain around the epigastric area. Patient denies any pain radiation. Patient states that he has intermittent right flank pain for the past week. Patient states the flank pain is aching pain. Patient denies any dysuria or frequency. Patient denies any fever chills. Patient has history EtOH abuse. Patient has history of pancreatitis in the past. Patient has history hypertension however is not on any medication. Patient denies history of diabetes or hyperlipidemia. Patient is a smoker. Patient denies family history of heart disease. Patient states he drinks alcohol daily. Patient also abusing opioids. PFSH Past Medical History Arthritis: No Asthma: No Autoimmune Disease: No Blood Disorders: No Anxiety: Yes Depression: Yes Heart Rhythm Problems: No Cancer: No Cardiovascular Problems: No High Cholesterol: Yes Chemotherapy: No Chest Pain: No Congestive Heart Failure: No COPD: No Cerebrovascular Accident: No Diabetes: No Diminished Hearing: No Endocrine: No Gastrointestinal Disorders: No GERD: No Glaucoma: No Genitourinary: No Headaches: No Hepatitis: No Hiatal Hernia: No Heparin Induced Thrombocytopen: No Hypertension: Yes Immune Disorder: No Implanted Vascular Access Dvce: Yes Kidney Stones: Yes Musculoskeletal: No Neurologic: No Psychiatric: Yes Reproductive: No Respiratory: No Myocardial Infarction: No Radiation Therapy: No Renal Failure: No Seizures: No Sickle Cell Disease: No Sleep Apnea: No Thyroid Disease: No Ulcer: No Past Surgical History Abdominal Surgery: No AICD: No Body Medical Devices: Metal shane in ankle Genitourinary Surgery: Yes (kidney son removed) Pacemaker: No Thoracic Surgery: No Other Surgery: Yes Social History Alcohol Use: Yes Tobacco Use: Yes (1 ppd) Substance Use: Yes (cocaine this week, occasionally. HEROIN ) Allergies-Medications (Allergen,Severity, Reaction): Coded Allergies: No Known Allergies (Verified Allergy, Unknown, 08/06/17) Reported Meds & Prescriptions Reported Meds & Active Scripts Active No Active Prescriptions or Reported Medications Review of Systems General / Constitutional: No: Fever Eyes: No: Visual changes HENT: No: Headaches Cardiovascular: Positive: Chest Pain or Discomfort Respiratory: No: Shortness of Breath Gastrointestinal: Positive: Abdominal Pain Genitourinary: No: Dysuria Musculoskeletal: No: Pain Skin: No Rash Neurologic: No: Weakness Psychiatric: No: Depression Endocrine: No: Polydipsia Hematologic/Lymphatic: No: Easy Bruising Physical Exam Narrative GENERAL: Well-nourished, well-developed patient. SKIN: Focused skin assessment warm/dry. HEAD: Normocephalic. EYES: No scleral icterus. No injection or drainage. NECK: Supple, trachea midline. No JVD or lymphadenopathy. CARDIOVASCULAR: Regular rate and rhythm without murmurs, gallops, or rubs. RESPIRATORY: Breath sounds equal bilaterally. No accessory muscle use. GASTROINTESTINAL: Abdomen soft, non-tender, nondistended. MUSCULOSKELETAL: No cyanosis, or edema. BACK: Nontender without obvious deformity. No CVA tenderness. Neurologic exam normal. Wet Data Data Last Documented VS Vital Signs Date Time Temp Pulse Resp B/P (MAP) Pulse Ox O2 Delivery O2 Flow Rate FiO2 08/06/17 04:55 18 98 Room Air 08/06/17 04:10 98.0 90 Orders Orders Electrocardiogram (08/06/17 04:33) Complete Blood Count With Diff (08/06/17 04:33) Comprehensive Metabolic Panel (08/06/17 04:33) Creatine Kinase (Cpk) (08/06/17 04:33) Troponin I (08/06/17 04:33) Prothrombin Time / Inr (Pt) (08/06/17 04:33) Act Partial Throm Time (Ptt) (08/06/17 04:33) Lipase (08/06/17 04:33) Urinalysis - C+S If Indicated (08/06/17 04:33) Chest, Single Ap (08/06/17 04:33) Iv Access Insert/Monitor (08/06/17 04:33) Ecg Monitoring (08/06/17 04:33) Oximetry (08/06/17 04:33) Sodium Chlor 0.9% 1000 Ml Inj (Ns 1000 M (08/06/17 04:45) Ondansetron Inj (Zofran Inj) (08/06/17 04:45) Famotidine Inj (Pepcid Inj) (08/06/17 04:45) Al-Mag Hy-Si 40-40-4 Mg/Ml Liq (Mag-Al P (08/06/17 04:45) Labs Laboratory Tests Test 08/06/17 04:45 White Blood Count 6.5 TH/MM3 Red Blood Count 5.28 MIL/MM3 Hemoglobin 17.5 GM/DL Hematocrit 49.1 % Mean Corpuscular Volume 92.9 FL Mean Corpuscular Hemoglobin 33.1 PG Mean Corpuscular Hemoglobin Concent 35.7 % Red Cell Distribution Width 14.0 % Platelet Count 194 TH/MM3 Mean Platelet Volume 9.2 FL Neutrophils (%) (Auto) 67.8 % Lymphocytes (%) (Auto) 18.3 % Monocytes (%) (Auto) 9.3 % Eosinophils (%) (Auto) 3.8 % Basophils (%) (Auto) 0.8 % Neutrophils # (Auto) 4.4 TH/MM3 Lymphocytes # (Auto) 1.2 TH/MM3 Monocytes # (Auto) 0.6 TH/MM3 Eosinophils # (Auto) 0.2 TH/MM3 Basophils # (Auto) 0.1 TH/MM3 CBC Comment DIFF FINAL Differential Comment Prothrombin Time 11.4 SEC Prothromb Time International Ratio 1.1 RATIO Activated Partial Thromboplast Time 25.5 SEC Blood Urea Nitrogen 8 MG/DL Creatinine 0.92 MG/DL Random Glucose 111 MG/DL Total Protein 8.9 GM/DL Albumin 3.7 GM/DL Calcium Level 8.7 MG/DL Alkaline Phosphatase 198 U/L Aspartate Amino Transf (AST/SGOT) 299 U/L Alanine Aminotransferase (ALT/SGPT) 190 U/L Total Bilirubin 1.0 MG/DL Sodium Level 137 MEQ/L Potassium Level 4.0 MEQ/L Chloride Level 99 MEQ/L Carbon Dioxide Level 25.4 MEQ/L Anion Gap 13 MEQ/L Estimat Glomerular Filtration Rate 88 ML/MIN Total Creatine Kinase 260 U/L Troponin I LESS THAN 0.02 NG/ML Lipase 141 U/L MDM Medical Decision Making Medical Screen Exam Complete: Yes Emergency Medical Condition: Yes Interpretation(s) Last Impressions Chest X-Ray 08/06/17 3015 Signed Impressions: Service Date/Time: July 04:50 - CONCLUSION: 1. No acute cardiopulmonary disease. Barron Mcdonough MD 5:18 AM. CBC within normal limit. 5:36 AM. AST 299. ALT 190. Alkaline phosphatase 198. Cardiac enzymes are normal. Differential Diagnosis Differential diagnosis including musculoskeletal, angina, ME, PE, pneumothorax, pancreatitis, gastritis, PUD, colitis, UTI, pyelonephritis, nephrolithiasis. Narrative Course 46-year-old male with left-sided chest pain, epigastric pain, history alcohol abuse and pancreatitis. Pepcid 20 mg IV. Zofran 4 mg IV. Maalox 30 cc by mouth. Diagnosis Primary Impression: Atypical chest pain Additional Impression: Gastritis Qualified Codes: K29.00 - Acute gastritis without bleeding Patient Instructions: General Instructions Additional Instructions: Take medications as directed. Advised [facility] for alcohol problem. Follow-up with personal physician. Return if increasing chest pain short of breath. Med/Other Pt SpecificInfo: Prescription(s) given Scripts Sucralfate (Carafate) 1 Gram Tab 1 GM PO QID for Ulcer Prevention, #120 TAB 0 Refills On empty stomach Prov: Omari Maier MD 08/06/17 Pantoprazole (Protonix) 40 Mg Tab 40 MG PO DAILY for Reflux, #30 TAB 0 Refills Prov: Omari Maier MD 08/06/17 Disposition: 01 DISCHARGE HOME Condition: Stable Omari Maier MD Aug 06, 2017 04:51
[2017-08-06 04:55] VITALS: RESP 18; O2SAT 98
[2017-08-06 04:58] LABS: AUTOMATED NEUTROPHIL # 4.4 TH/MM3 (1.8-7.7); BASOPHIL # 0.1 TH/MM3 (0-0.2); BASOPHIL % 0.8 % (0.0-2.0); EOSINOPHIL # 0.2 TH/MM3 (0-0.4); EOSINOPHIL % 3.8 % (0.0-4.0); HEMATOCRIT 49.1 % (39.0-51.0); HEMOGLOBIN 17.5 GM/DL (13.0-17.0); LYMPH % 18.3 % (9.0-44.0); LYMPHOCYTE # 1.2 TH/MM3 (1.0-4.8); MEAN CELL VOLUME 92.9 FL (80.0-100.0); MEAN CORPUSCULAR HEMOGLOBIN 33.1 PG (27.0-34.0); MEAN CORPUSCULAR HGB CONC 35.7 % (32.0-36.0); MEAN PLATELET VOLUME 9.2 FL (7.0-11.0); MONO % 9.3 % (0.0-8.0); MONOCYTE # 0.6 TH/MM3 (0-0.9); NEUT % 67.8 % (16.0-70.0); PLATELET COUNT 194 TH/MM3 (150-450); RED BLOOD COUNT 5.28 MIL/MM3 (4.50-5.90); WHITE BLOOD COUNT 6.5 TH/MM3 (4.0-11.0)
--- NOTE | 2017-08-06 05:06 | RADRPT ---
EXAM DATE/TIME: 08/06/2017 04:50 [facility] COMPARISON: No previous studies available for comparison. INDICATIONS : Left side chest pain. MEDICAL HISTORY : None. SURGICAL HISTORY : None. ENCOUNTER: Initial ACUITY: 1 day PAIN SCORE: 4/10 LOCATION: Left chest FINDINGS: A single view of the chest demonstrates the lungs to be symmetrically aerated without evidence of mas s, infiltrate or effusion. The cardiomediastinal contours are unremarkable. Osseous structures are intact. CONCLUSION: 1. No acute cardiopulmonary disease. Barron Mcdonough MD on August 06, 2017 at 5:04 Board Certified Radiologist. This report was verified electronically.
[2017-08-06 05:08] LABS: INTERNATIONAL NORMALIZED RATIO 1.1 RATIO; PROTHROMBIN TIME - PATIENT 11.4 SEC (9.8-11.6)
[2017-08-06 05:26] LABS: ALBUMIN 3.7 GM/DL (3.4-5.0); ALKALINE PHOSPHATASE 198 U/L (45-117); ALT (GPT) 190 U/L (12-78); AST (GOT) 299 U/L (15-37); BICARBONATE 25.4 MEQ/L (21.0-32.0); BLOOD UREA NITROGEN 8 MG/DL (7-18); CALCIUM 8.7 MG/DL (8.5-10.1); CHLORIDE 99 MEQ/L (98-107); CREATININE 0.92 MG/DL (0.60-1.30); GLOMERULAR FILTRATION RATE 88 ML/MIN (>89); GLUCOSE,RANDOM 111 MG/DL (74-106); LIPASE 141 U/L (73-393); SODIUM (NA) 137 MEQ/L (136-145); TOTAL PROTEIN 8.9 GM/DL (6.4-8.2); TROPONIN I LESS THAN 0.02 NG/ML (0.02-0.05)
[2017-08-06] MEDS ORDERED: PROT40TA PO (05:44)
[2017-08-06] MEDS ORDERED: CARA1TAB6 PO (05:44)
--- NOTE | 2017-08-06 20:42 | EKG ---
Date Performed: 08/06/2017 Time Performed: 04:23:03 PTAGE: 46 years EKG: Sinus rhythm POSSIBLE LEFT VENTRICULAR HYPERTROPHY ABNORMAL ECG SINCE PRIOR TRACING NO SIGNIFICANT CHANGE PREVIOUS TRACING : 06/14/2017 DOCTOR: Colette Delcid Interpretating Date/Time 08/06/2017 20:41:35
== END 2017-08-06 06:28 | disposition home or self-care (01) ==
LOC: NEPE 04:09
DX: K29.00 Acute gastritis without bleeding (principal); R07.89 Other chest pain; E78.00 Pure hypercholesterolemia, unspecified; F32.9 Major depressive disorder, single episode, unspecified; F41.9 Anxiety disorder, unspecified; I10 Essential (primary) hypertension; F11.10 Opioid abuse, uncomplicated; F17.200 Nicotine dependence, unspecified, uncomplicated
CPT/HCPCS: 71045; 80053; 82550; 83690; 84484; 85025; 85610; 85730; 93005; 96361; 96374; 96375; 99285; J2405; J7030

== ENCOUNTER 2018-01-16 08:26 | Inpatient (IN) ==
[2018-01-16] MEDS ORDERED: Acetaminophen 325 MG Tablet PO PRN (09:45)
[2018-01-16] MEDS ORDERED: Naloxone Inj 0.4 MG/ML Vial IV.PUSH PRN (09:45)
[2018-01-16] MEDS ORDERED: Bisacodyl 10 MG Supp RECTAL PRN (09:45)
[2018-01-16] MEDS ORDERED: Potassium Chlor 20 mEq Premix 20 MEQ/100 ML PIGGYBACK IV.SIG PRN ×2 (12:00)
[2018-01-16] MEDS ORDERED: Potassium Chlor 40 mEq Premix 40 MEQ/100 ML PIGGYBACK IV.SIG PRN ×2 (12:00)
[2018-01-16] MEDS ORDERED: Potassium Phosphate Inj 30 MMOL in Sodium Chlor 0.9% Inj 250 ML IV.SIG PRN (12:00)
[2018-01-16] MEDS ORDERED: Magnesium Oxide 400 MG Tablet PO PRN (12:00)
[2018-01-16] MEDS ORDERED: Magnesium Sulfate Inj 4 GM in Sodium Chlor 0.9% Inj 92 ML IV.SIG PRN (12:00)
[2018-01-16] MEDS ORDERED: Potassium Phosphate 500 MG Soluble Tablet PO PRN (12:00)
[2018-01-16] MEDS ORDERED: Potassium Chloride 25 MEQ Effervescent Tablet PO PRN (12:00)
[2018-01-16] MEDS ORDERED: Sodium Phosphate Inj 30 MMOL in Sodium Chlor 0.9% Inj 240 ML IV.SIG PRN (12:00)
[2018-01-16] MEDS ORDERED: Magnesium Sulfate Inj 2 GM in Sodium Chlor 0.9% Inj 100 ML IV.SIG PRN (12:00)
[2018-01-16] MEDS ORDERED: Chlorhexidine Gluconate 2% 1 Pack (2 Cloths) TOPICAL PRN (12:15)
[2018-01-16] MEDS ORDERED: LORazepam 1 MG Tablet PO PRN (19:30)
[2018-01-18] MEDS ORDERED: Dextrose 50% in Water 50 ML Vial IV.PUSH PRN (08:15)
[2018-01-20] MEDS ORDERED: Haloperidol Inj 5 MG/ML Ampul IV.PUSH PRN (16:45)
[2018-01-20] MEDS ORDERED: QUEtiapine 100 MG Tablet PO SCH (18:00)
[2018-01-21] MEDS ORDERED: Labetalol HCl Inj 100 MG/20 ML Vial IV.PUSH PRN (03:15)
[2018-01-21] MEDS ORDERED: chlordiazePOXIDE 25 MG Capsule PO SCH (09:00)
[2018-01-24] MEDS ORDERED: dilTIAZem 60 MG Tablet ONE (00:22)
[2018-01-24] MEDS: dilTIAZem 60 MG Tablet PO SCH ×6 (00:32→21:22)
[2018-01-24] MEDS: Insulin NovoLIN Regular Correctional Sugar Inj SQ SCH ×6 (01:00→20:58)
[2018-01-24] MEDS: Chlorhexidine Gluconate 2% 1 Pack (2 Cloths) TOPICAL SCH (04:28)
[2018-01-24] MEDS: QUEtiapine 25 MG Tablet PO SCH ×3 (05:57→20:57)
[2018-01-24] MEDS: Sennosides Liq 8.8 MG/5 ML UDC PO SCH (09:00)
[2018-01-24] MEDS: Senna/Docusate Sodium 8.6/50 MG Tablet PO SCH ×2 (09:25→20:57)
[2018-01-24] MEDS: chlordiazePOXIDE 25 MG Capsule PO SCH (09:25)
[2018-01-24] MEDS: Folic Acid 1 MG Tablet PO SCH (09:25)
[2018-01-24] MEDS: Docusate Sodium Liq 100 MG/10 ML UDC PO SCH ×2 (09:28→20:56)
--- NOTE | 2018-01-24 12:15 | P.PNIM ---
Physical Exam Vital signs: Vital Signs 01/24/18 00:00 01/24/18 03:33 01/24/18 04:00 Temperature 98.1 F 98.0 F Pulse Rate 71 71 72 Respiratory Rate 18 14 18 Blood Pressure 151/96 H 142/89 H Pulse Oximetry 98 100 01/24/18 08:00 01/24/18 09:35 Temperature 98.4 F Pulse Rate 79 71 Respiratory Rate 17 16 Blood Pressure 131/96 H Pulse Oximetry 98 97 Intake & Output 01/23/18 01/24/18 01/24/18 18:59 06:59 18:59 Intake Total 462 / 462 Output Total 2650 / 2650 Balance -2188 / -2188 Weight 68.5 kg Intake: Oral 462 / 462 Output: Urine 2650 / 2650 Other: # Bowel Movements 1 Results - Labs CBC & Chem 7: 01/23/18 02:51 01/23/18 02:51 Labs: Laboratory Results - last 24 hr 01/21/18 01/21/18 01/21/18 04:00 04:00 04:00 WBC RBC Hgb Hct MCV MCH MCHC RDW Plt Count MPV Neut % (Auto) Lymph % (Auto) [place] % (Auto) Eos % (Auto) Baso % (Auto) Neut # (Auto) Lymph # (Auto) [place] # (Auto) Eos # (Auto) Baso # (Auto) CBC Comment Puncture Site Patient Temperature HCO3 Base Excess O2 Saturation ABG pH ABG pCO2 ABG pO2 ABG O2 Content ABG Carboxyhemoglobin ABG Methemoglobin Hemoglobin O2 Delivery Device Vent Setting Inspired O2 Sodium Potassium Chloride Carbon Dioxide Anion Gap BUN Creatinine Estimated GFR POC Glucose Random Glucose Lactic Acid 0.8 Calcium Phosphorus Magnesium Total Bilirubin AST ALT Alkaline Phosphatase Ammonia 48 H Lactate Dehydrogenase 196 Total Creatine Kinase 178 Troponin I 0.03 Total Protein Albumin Amylase 48 Lipase 80 01/21/18 01/21/18 01/21/18 08:11 08:11 09:16 WBC 7.1 RBC 4.70 Hgb 14.8 Hct 43.9 MCV 93.4 MCH 31.5 MCHC 33.8 RDW 13.2 Plt Count 135 L D MPV 9.7 Neut % (Auto) 65.4 Lymph % (Auto) 18.0 [place] % (Auto) 12.1 H Eos % (Auto) 3.8 Baso % (Auto) 0.7 Neut # (Auto) 4.6 Lymph # (Auto) 1.3 [place] # (Auto) 0.9 Eos # (Auto) 0.3 Baso # (Auto) 0.1 CBC Comment DIFF FINAL Puncture Site RT RADIAL Patient Temperature 98.6 HCO3 30 H Base Excess 6.5 H O2 Saturation 94 ABG pH 7.49 H ABG pCO2 40 ABG pO2 80 ABG O2 Content 19.8 ABG Carboxyhemoglobin 1.0 ABG Methemoglobin 1.4 Hemoglobin 15.1 O2 Delivery Device VENTILATOR Vent Setting 10/+5/30 Inspired O2 30 Sodium 141 Potassium 4.0 Chloride 102 D Carbon Dioxide 31.7 Anion Gap 7 BUN 10 Creatinine 0.71 Estimated GFR 118 POC Glucose Random Glucose 120 H Lactic Acid Calcium 8.7 D Phosphorus 3.3 Magnesium 1.7 Total Bilirubin 1.2 H AST 101 H ALT 103 H Alkaline Phosphatase 204 H Ammonia Lactate Dehydrogenase Total Creatine Kinase Troponin I Total Protein 6.8 D Albumin 2.9 L Amylase Lipase 01/22/18 01/22/18 01/23/18 04:10 05:00 02:51 WBC 8.7 RBC 4.77 Hgb 15.3 Hct 44.1 MCV 92.3 MCH 32.1 MCHC 34.8 RDW 12.9 Plt Count 182 D MPV 9.5 Neut % (Auto) 77.6 H Lymph % (Auto) 10.7 [place] % (Auto) 10.7 H Eos % (Auto) 0.2 Baso % (Auto) 0.8 Neut # (Auto) 6.7 Lymph # (Auto) 0.9 L [place] # (Auto) 0.9 Eos # (Auto) 0.0 Baso # (Auto) 0.1 CBC Comment DIFF FINAL Puncture Site Patient Temperature HCO3 Base Excess O2 Saturation ABG pH ABG pCO2 ABG pO2 ABG O2 Content ABG Carboxyhemoglobin ABG Methemoglobin Hemoglobin O2 Delivery Device Vent Setting Inspired O2 Sodium 141 139 Potassium 3.1 L D 3.7 Chloride 100 105 Carbon Dioxide 31.0 25.7 Anion Gap 10 8 BUN 14 22 H Creatinine 0.61 0.81 Estimated GFR 141 102 POC Glucose Random Glucose 126 H 128 H Lactic Acid Calcium 9.1 8.8 Phosphorus 2.4 L 3.2 Magnesium 2.0 1.9 Total Bilirubin 1.3 H 0.7 AST 64 H 51 H ALT 87 H 68 Alkaline Phosphatase 195 H 143 H Ammonia Lactate Dehydrogenase Total Creatine Kinase Troponin I Total Protein 7.9 D 6.9 D Albumin 3.4 3.0 L Amylase Lipase 01/23/18 01/24/18 01/24/18 02:51 05:24 08:59 WBC 6.0 RBC 4.41 L Hgb 14.0 Hct 41.6 MCV 94.3 MCH 31.8 MCHC 33.8 RDW 13.3 Plt Count 174 MPV 8.8 Neut % (Auto) 57.3 Lymph % (Auto) 20.8 [place] % (Auto) 17.1 H Eos % (Auto) 4.3 H Baso % (Auto) 0.5 Neut # (Auto) 3.4 Lymph # (Auto) 1.2 [place] # (Auto) 1.0 H Eos # (Auto) 0.3 Baso # (Auto) 0.0 CBC Comment DIFF FINAL Puncture Site Patient Temperature HCO3 Base Excess O2 Saturation ABG pH ABG pCO2 ABG pO2 ABG O2 Content ABG Carboxyhemoglobin ABG Methemoglobin Hemoglobin O2 Delivery Device Vent Setting Inspired O2 Sodium Potassium Chloride Carbon Dioxide Anion Gap BUN Creatinine Estimated GFR POC Glucose 145 H 98 Random Glucose Lactic Acid Calcium Phosphorus Magnesium Total Bilirubin AST ALT Alkaline Phosphatase [place]ia Lactate Dehydrogenase Total Creatine Kinase Troponin I Total Protein Albumin Amylase Lipase Assessment and Plan - Plan 47-year-old male admitted secondary to chest pain who had severe alcohol withdrawal with respiratory failure and urinary obstruction, now status post right-sided nephrostomy. Alcohol withdrawal Delirium tremens Alcohol withdrawal seizures Heroin withdrawal Cocaine withdrawal Delirium Delirium, heroin withdrawal, cocaine withdrawal, and alcohol withdrawal seizures have resolved Continue CIWA protocol Continue Librium Will wean Librium as tolerated starting tomorrow Seroquel continued Acute hypoxic and hypercarbic respiratory failure Now status post extubation 01/22/2018 Doing well after extubation Continue bronchodilators as needed Torsade de pointes Resolved Hypertension Continue baseline treatment Follow blood pressures Adjust treatments as needed Elevated LFT Likely related to polysubstance abuse Improving through time Obstructing calculus on the right in the region of the UPJ measuring 18 mm. UTI Urology following Status post nephrostomy tube Continue Rocephin Continue Dyer catheter for INR monitoring Anemia Thrombocytopenia Monitor CBC DVT prophylaxis SCDs
[2018-01-25] MEDS: Insulin NovoLIN Regular Correctional Sugar Inj SQ SCH ×3 (00:21→08:23)
[2018-01-25] MEDS: QUEtiapine 25 MG Tablet PO SCH ×3 (04:40→21:48)
[2018-01-25] MEDS: dilTIAZem 60 MG Tablet PO SCH ×6 (04:40→21:54)
[2018-01-25 06:55] LABS: Baso # (Auto) 0.1 th/mm3 (0.0-0.2); Baso % (Auto) 1.2 % (0.0-2.0); Eos # (Auto) 0.4 th/mm3 (0.0-0.4); Eos % (Auto) 4.7 % (0.0-4.0); Hematocrit 41.8 % (39.0-51.0); Hemoglobin 14.1 gm/dL (13.0-17.0); Lymph # (Auto) 1.4 th/mm3 (1.0-4.8); Lymph % (Auto) 18.1 % (9.0-44.0); Mean Corpuscular HGB Conc 33.8 % (32.0-36.0); Mean Corpuscular Hemoglobin 31.8 pg (27.0-34.0); Mean Corpuscular Volume 94.3 fL (80.0-100.0); Mean Platelet Volume 9.6 fL (7.0-11.0); Mono # (Auto) 1.1 th/mm3 (0.0-0.9); Mono % (Auto) 14.5 % (0.0-8.0); Neut # (Auto) 4.6 th/mm3 (1.8-7.7); Neut % (Auto) 61.5 % (16.0-70.0); Platelet Count 289 th/mm3 (150-450); Red Blood Count 4.44 mil/mm3 (4.50-5.90); Red Cell Distribution Width 12.6 % (11.6-17.2); White Blood Count 7.5 th/mm3 (4.0-11.0)
[2018-01-25] MEDS: chlordiazePOXIDE 25 MG Capsule PO SCH (08:13)
[2018-01-25] MEDS: Folic Acid 1 MG Tablet PO SCH ×3 (08:13→09:00)
[2018-01-25] MEDS: Sennosides Liq 8.8 MG/5 ML UDC PO SCH ×2 (08:14→21:09)
[2018-01-25] MEDS: Senna/Docusate Sodium 8.6/50 MG Tablet PO SCH ×4 (08:15→21:58)
[2018-01-25] MEDS: Docusate Sodium Liq 100 MG/10 ML UDC PO SCH ×4 (08:16→21:58)
[2018-01-25 08:59] LABS: Alanine Aminotransferase 248 U/L (12-78); Albumin 3.1 g/dL (3.4-5.0); Alkaline Phosphatase 150 U/L (45-117); Anion Gap 10 meq/L (5-15); Aspartate Aminotransferase 197 U/L (15-37); Blood Urea Nitrogen 19 mg/dL (7-18); Calcium 9.4 mg/dL (8.5-10.1); Carbon Dioxide 24.3 meq/L (21.0-32.0); Chloride 103 meq/L (98-107); Glomerular Filtration Rate Greater Than 89 mL/min (>89); Glucose,Random 99 mg/dL (74-106); Potassium 3.8 meq/L (3.5-5.1); Sodium 137 meq/L (136-145); Total Protein 7.2 g/dL (6.4-8.2)
--- NOTE | 2018-01-25 12:09 | P.PNIM ---
Subjective Interval history: No acute distress of the patient. No evidence of withdrawal. We discussed Librium wean with the patient. Physical Exam Vital signs: Vital Signs 01/24/18 16:00 01/24/18 20:00 01/25/18 00:27 Temperature 98.4 F 97.5 F L 98.0 F Pulse Rate 72 68 67 Respiratory Rate 17 18 17 Blood Pressure 125/83 149/86 H 117/76 Pulse Oximetry 98 99 97 01/25/18 05:58 01/25/18 08:00 01/25/18 09:00 Temperature 97.4 F L 97.8 F Pulse Rate 76 58 L 57 L Respiratory Rate 18 18 14 Blood Pressure 126/89 122/79 Pulse Oximetry 98 97 99 Intake & Output 01/24/18 01/25/18 01/25/18 18:59 06:59 18:59 Intake Total 1100 / 1100 Output Total 1725 / 1725 Balance -625 / -625 Weight 69.4 kg Intake: Oral 1100 / 1100 Output: Urine 1725 / 1725 Other: # Bowel Movements 0 - Routine HEENT Exam Comments: GENERAL: NAD, A&Ox3 HEAD: Normocephalic. NECK: Supple, trachea midline. No lymphadenopathy. EYES: No scleral icterus. No injection or drainage. CARDIOVASCULAR: Regular rate and rhythm without murmurs, gallops, or rubs. RESPIRATORY: Breath sounds equal bilaterally. No accessory muscle use. GASTROINTESTINAL: Abdomen soft, non-tender, nondistended. MUSCULOSKELETAL: No cyanosis, or edema. SKIN: Warm and dry. Nephrostomy tube is present at the patient's right back. NEURO: No focal neurological deficits. - Urinary Catheter Management Indwelling Urethral Catheter Cath placed during this visit: yes Urethral indwelling: Yes Reason for continuing: Hourly intake/output Insertion date: 01/17/18 Insertion time: 00:00 Results - Labs CBC & Chem 7: 01/25/18 05:21 01/25/18 05:21 Laboratory Results - last 24 hr 01/24/18 01/24/18 01/24/18 13:40 17:23 17:59 WBC RBC Hgb Hct MCV MCH MCHC RDW Plt Count MPV Neut % (Auto) Lymph % (Auto) [place] % (Auto) Eos % (Auto) Baso % (Auto) Neut # (Auto) Lymph # (Auto) [place] # (Auto) Eos # (Auto) Baso # (Auto) WBC Differential Differential Comment Sodium Potassium Chloride Carbon Dioxide Anion Gap BUN Creatinine Estimated GFR POC Glucose 115 H 123 H Random Glucose 120 H Calcium Total Bilirubin AST ALT Alkaline Phosphatase Total Protein Albumin 01/24/18 01/25/18 01/25/18 19:47 05:21 05:21 WBC 7.5 RBC 4.44 L Hgb 14.1 Hct 41.8 MCV 94.3 MCH 31.8 MCHC 33.8 RDW 12.6 Plt Count 289 MPV 9.6 Neut % (Auto) 61.5 Lymph % (Auto) 18.1 [place] % (Auto) 14.5 H Eos % (Auto) 4.7 H Baso % (Auto) 1.2 Neut # (Auto) 4.6 Lymph # (Auto) 1.4 [place] # (Auto) 1.1 H Eos # (Auto) 0.4 Baso # (Auto) 0.1 WBC Differential . Differential Comment Auto diff final Sodium 137 Potassium 3.8 Chloride 103 Carbon Dioxide 24.3 Anion Gap 10 BUN 19 H Creatinine 0.86 Estimated GFR Greater than 89 POC Glucose 141 H Random Glucose 99 Calcium 9.4 Total Bilirubin 0.7 AST 197 H ALT 248 H Alkaline Phosphatase 150 H Total Protein 7.2 Albumin 3.1 L 01/25/18 08:21 WBC RBC Hgb Hct MCV MCH MCHC RDW Plt Count MPV Neut % (Auto) Lymph % (Auto) [place] % (Auto) Eos % (Auto) Baso % (Auto) Neut # (Auto) Lymph # (Auto) [place] # (Auto) Eos # (Auto) Baso # (Auto) WBC Differential Differential Comment Sodium Potassium Chloride Carbon Dioxide Anion Gap BUN Creatinine Estimated GFR POC Glucose 110 Random Glucose Calcium Total Bilirubin AST ALT Alkaline Phosphatase Total Protein Albumin Microbiology 01/24/18 11:20 Blood - Peripheral Aerobic Blood Culture - Preliminary No growth in 1 day 01/24/18 11:20 Blood - Peripheral Anaerobic Blood Culture - Final QNS - See aerobic report. 01/24/18 11:30 Blood - Peripheral Aerobic Blood Culture - Preliminary No growth in 1 day 01/24/18 11:30 Blood - Peripheral Anaerobic Blood Culture - Final QNS - See aerobic report. Assessment and Plan - Plan 47-year-old male admitted secondary to chest pain who had severe alcohol withdrawal with respiratory failure and urinary obstruction, now status post right-sided nephrostomy. Continue Librium wean to be completed prior to discharge. Patient weaned from 25 mg twice daily of Librium to 10 mg 3 times daily of Librium. Urology following. Awaiting urology input on final treatment plan, prior to discharge. Alcohol withdrawal Delirium tremens Alcohol withdrawal seizures Heroin withdrawal Cocaine withdrawal Delirium Delirium, heroin withdrawal, cocaine withdrawal, and alcohol withdrawal seizures have resolved Continue CIWA protocol Continue Librium Will wean Librium as tolerated starting tomorrow Seroquel continued Acute hypoxic and hypercarbic respiratory failure Now status post extubation 01/22/2018 Doing well after extubation Continue bronchodilators as needed Torsade de pointes Resolved Hypertension Continue baseline treatment Follow blood pressures Adjust treatments as needed Elevated LFT Likely related to polysubstance abuse Improving through time Obstructing calculus on the right in the region of the UPJ measuring 18 mm. UTI Urology following Status post nephrostomy tube Continue Rocephin Continue Dyer catheter for INR monitoring Anemia Thrombocytopenia Monitor CBC DVT prophylaxis SCDs
[2018-01-26] MEDS: dilTIAZem 60 MG Tablet PO SCH ×5 (05:08→22:41)
[2018-01-26] MEDS: QUEtiapine 25 MG Tablet PO SCH ×2 (05:08→15:17)
[2018-01-26] MEDS: Chlorhexidine Gluconate 2% 1 Pack (2 Cloths) TOPICAL SCH (05:09)
[2018-01-26] MEDS: Folic Acid 1 MG Tablet PO SCH (09:10)
[2018-01-26] MEDS: Sennosides Liq 8.8 MG/5 ML UDC PO SCH (09:10)
[2018-01-26] MEDS: Senna/Docusate Sodium 8.6/50 MG Tablet PO SCH ×3 (09:10→20:40)
[2018-01-26] MEDS: Docusate Sodium Liq 100 MG/10 ML UDC PO SCH ×2 (09:11→20:38)
--- NOTE | 2018-01-26 13:24 | P.PNIM ---
Subjective Interval history: Ambulating, no overnight events, still a little shaky but better. No fever or chills. No blood per Dyer catheter. Physical Exam Vital signs: Vital Signs 01/25/18 16:00 01/25/18 20:00 01/25/18 23:24 Temperature 98.3 F 97.8 F Pulse Rate 69 65 Respiratory Rate 18 17 18 Blood Pressure 126/81 130/87 Pulse Oximetry 98 98 01/26/18 00:00 01/26/18 01:12 01/26/18 04:00 Temperature 97.6 F 97.3 F L Pulse Rate 65 62 Respiratory Rate 17 18 17 Blood Pressure 110/75 124/77 Pulse Oximetry 98 100 01/26/18 08:00 Temperature 97.4 F L Pulse Rate 59 L Respiratory Rate 18 Blood Pressure 112/78 Pulse Oximetry 98 Intake & Output 01/25/18 01/26/18 01/26/18 18:59 06:59 18:59 Intake Total 460 / 460 480 / 480 Output Total 300 / 300 600 / 600 Balance 160 / 160 -120 / -120 Weight 70.4 kg Intake: IV 100 / 100 Rocephin Inj 2,000 MG In NS Inj 100 / 100 100 ML @ 200 mls/hr IV.SIG Q24H ABRAHAN Rx#:[id number] Oral 360 / 360 480 / 480 Output: Urine 300 / 300 600 / 600 Other: # Bowel Movements 1 Narrative: Not in distress [place] conjunctivae Regular rate and rhythm Abdomen soft nontender Right nephrostomy tube Dyer catheter with clear yellow urine, no hematuria Alert awake and oriented, no focal deficits. - Urinary Catheter Management Indwelling Urethral Catheter Cath placed during this visit: yes Urethral indwelling: Yes Reason for continuing: Acute urinary retention Insertion date: 01/17/18 Insertion time: 00:00 Results - Labs CBC & Chem 7: 01/25/18 05:21 01/25/18 05:21 Microbiology 01/24/18 11:20 Blood - Peripheral Aerobic Blood Culture - Preliminary No growth in 2 days 01/24/18 11:20 Blood - Peripheral Anaerobic Blood Culture - Final QNS - See aerobic report. 01/24/18 11:30 Blood - Peripheral Aerobic Blood Culture - Preliminary No growth in 2 days 01/24/18 11:30 Blood - Peripheral Anaerobic Blood Culture - Final QNS - See aerobic report. Assessment and Plan - Plan 47-year-old male admitted secondary to chest pain who had severe alcohol withdrawal with respiratory failure and urinary obstruction, now status post right-sided nephrostomy. Continue Librium wean to be completed prior to discharge. Patient weaned from 25 mg twice daily of Librium to 10 mg 3 times daily of Librium. Urology following. Awaiting urology input on final treatment plan, prior to discharge. Alcohol withdrawal Delirium tremens Alcohol withdrawal seizures Heroin withdrawal Cocaine withdrawal Delirium Delirium, heroin withdrawal, cocaine withdrawal, and alcohol withdrawal seizures have resolved Continue CIWA protocol Continue Librium, decrease dose. Seroquel continued Acute hypoxic and hypercarbic respiratory failure Now status post extubation 01/22/2018 Doing well after extubation Continue bronchodilators as needed Torsade de pointes Resolved Hypertension Continue baseline treatment Follow blood pressures Adjust treatments as needed Elevated LFT Likely related to polysubstance abuse Improving through time Obstructing calculus on the right in the region of the UPJ measuring 18 mm. UTI Urology consulted, Status post nephroureteral stent placement, per urology, will go home with tube in place capped, continue voiding trial, follow-up as outpatient for right ESWL. Continue Rocephin, switch to cephalexin. Remove Dyer catheter, voiding trial. Anemia Thrombocytopenia Monitor CBC DVT prophylaxis SCDs
[2018-01-27] MEDS: dilTIAZem 60 MG Tablet PO SCH ×4 (03:56→22:24)
[2018-01-27] MEDS: Chlorhexidine Gluconate 2% 1 Pack (2 Cloths) TOPICAL SCH (03:58)
[2018-01-27] MEDS: QUEtiapine 25 MG Tablet PO SCH ×3 (05:38→22:25)
[2018-01-27] MEDS: Folic Acid 1 MG Tablet PO SCH (09:34)
[2018-01-27] MEDS: Senna/Docusate Sodium 8.6/50 MG Tablet PO SCH ×2 (09:35→22:26)
[2018-01-27] MEDS: Sennosides Liq 8.8 MG/5 ML UDC PO SCH (09:35)
[2018-01-27] MEDS: Docusate Sodium Liq 100 MG/10 ML UDC PO SCH ×2 (09:35→22:26)
--- NOTE | 2018-01-27 15:52 | P.DIET ---
Nutritional Evaluation Type of nutrition evaluation: follow-up Nutrition consult regarding: Tube Feeding Subjective Subjective Comments: Pt reports he has a good appetite and is eating w/o problem. Pt declines an oral nutritional supplement. Objective - Diagnosis Chest Pain - Objective % IBW: 108 Body Weight Used for Calculations: IBW Energy Needs - Lower Range (kCal/kg): 25 Energy Needs - Upper Range (kCal/kg): 30 Lower Limit kCal/kg (kCals): 1,735 Upper Limit kCal/kg (kCals): 2,082 Lower Limit Protein Factor (Grams per Kg): 1.2 Upper Limit Protein Factor (Grams per Kg): 1.4 Lower Protein Needs (Protein): 83 Upper Protein Needs (Protein): 97 Fluid Factor (ml/kg): 30 Estimated Fluid Needs (ml): 2,082 Dietitian Reviewed in Medical Record: Current diet, Curent medications, Intake & Output, Labs, Tube feeding Oral Diet Intake Amount: Good 75-90% Speech Therapy Recommendations: Yes (Regular) Objective Comments: 01/22 Extubated Assessment Assessment: Nutrition Follow-up s/p TF'ing. Pt Extubated 01/22/18 and diet advanced per [address]. Pt tolerating Regular diet and reports his appetite is good. Diet recall today w /Adequate po intake 50% or greater for meals. Pt declines oral nutritional supplements at this time. Labs reviewed. Wt changes noted. Dietitian to Follow as Needed. Recommendations: 1.Adequate po intake 50% or greater for meals 2.Pt declines oral nutritional supplements at this time 3.Dietitian to Follow as Needed
--- NOTE | 2018-01-27 16:05 | P.PN ---
Subjective Interval history: Mr. Samuel was afebrile with stable vital signs overnight. No chest pain or shortness of breath. Patient reports noticing blood in his urine today. He reports persistent back pain but does not report increase in pain or abdominal pain. Patient expresses concern about inability to get lithotripsy as an outpatient. Patient's LFT elevations were reviewed; he acknowledges his Hepatitis C. He denies recent IV drug use but admits to Heroine snorting and alcoholism. Patient plans to follow-up with rehab at discharge. Physical Exam Vital signs: Vital Signs 01/26/18 20:00 01/27/18 00:00 01/27/18 04:25 Temperature 97.4 F L 97.7 F 97.6 F Pulse Rate 60 66 77 Respiratory Rate 20 18 16 Blood Pressure 133/91 H 110/77 110/76 Pulse Oximetry 100 97 01/27/18 08:00 01/27/18 12:00 Temperature 97.5 F L 98.3 F Pulse Rate 62 63 Respiratory Rate 20 20 Blood Pressure 117/80 106/57 L Pulse Oximetry 99 98 Intake & Output 01/26/18 01/27/18 01/27/18 18:59 06:59 18:59 Output Total 1000 / 1000 1000 / 1000 Balance -1000 / -1000 -1000 / -1000 Weight 69.4 kg Output: Urine 1000 / 1000 Urine Amount (Catheter) 1000 / 1000 Indwelling Urethral Catheter 1000 / 1000 Other: Post Void Residual 175 Date of Last Bowel Movement 01/27/18 01/27/18 # Bowel Movements 2 Narrative: Gen: Not in distress Eyes: normal conjunctivae CV: Regular rate and rhythm; normal perfusion Respiratory: CTAB; normal rate Abdomen: soft, nontender Right nephrostomy tube Neuro: Awake and alert. Grossly normal CN. Grossly normal peripheral motor/ sensory function - Urinary Catheter Management Indwelling Urethral Catheter Cath placed during this visit: yes, but has since been removed by the nurse Urethral indwelling: Yes Reason for continuing: Not indwelling catheter Insertion date: 01/17/18 Insertion time: 00:00 Removal date: 01/26/18 Removal time: 15:30 Results - Labs CBC & Chem 7: 01/25/18 05:21 01/25/18 05:21 Microbiology 01/24/18 11:20 Blood - Peripheral Aerobic Blood Culture - Preliminary No growth in 3 days 01/24/18 11:20 Blood - Peripheral Anaerobic Blood Culture - Final QNS - See aerobic report. 01/24/18 11:30 Blood - Peripheral Aerobic Blood Culture - Preliminary No growth in 3 days 01/24/18 11:30 Blood - Peripheral Anaerobic Blood Culture - Final QNS - See aerobic report. Assessment and Plan - Assessment (1) Ureteropelvic junction (UPJ) obstruction Code(s): N13.5 - Crossing vessel and stricture of ureter without hydronephrosis Status: Acute (2) Elevated LFTs Code(s): R94.5 - Abnormal results of liver function studies Status: Acute (3) Delirium tremens Code(s): F10.231 - Alcohol dependence with withdrawal delirium Status: Resolved (4) Alcohol withdrawal Code(s): F10.239 - Alcohol dependence with withdrawal, unspecified Status: Resolved (5) Heroin withdrawal Code(s): F11.23 - Opioid dependence with withdrawal Status: Resolved (6) Respiratory failure Code(s): J96.90 - Respiratory failure, unspecified, unspecified whether with hypoxia or hypercapnia Status: Resolved (7) Hepatitis C antibody positive in blood Code(s): R76.8 - Other specified abnormal immunological findings in serum Status: Chronic - Plan 47-year-old male admitted secondary to chest pain who had severe alcohol withdrawal with respiratory failure and urinary obstruction, now status post right-sided nephrostomy. Urology plans to perform lithotripsy as outpatient Patient has had Librium weaned from 25mg BID to 5 mg TID Obstructing calculus on the right in the region of the UPJ measuring 18 mm. UTI Status post nephroureteral stent placement. Voiding trial successful after catheter removal 01/26 Urology consulted - will go home with tube in place capped - follow-up as outpatient for right ESWL. -Rocephin changed to Cephalexin (cultures negative 01/17; suggestion of UTI on UA ) -Reported hematuria today; will check UA again before discharge Elevated LFT Impression: Uptrending LFT's 01/25 (01/25- AST 197, ALT 248, ALKP 150) <- (01/23- AST 51, ALT 68, ALKP 143) Likely related to polysubstance abuse; some chronic hep C also -Will repeat CMP since uptrended; if stable will reassure patient further Alcohol withdrawal Delirium tremens Alcohol withdrawal seizures Heroin withdrawal Cocaine withdrawal Delirium Delirium, heroin withdrawal, cocaine withdrawal, and alcohol withdrawal seizures have resolved Continue CIWA protocol Continue Librium, decrease dose. Seroquel continued Acute hypoxic and hypercarbic respiratory failure Now status post extubation 01/22/2018 Doing well after extubation Continue bronchodilators as needed Torsade de pointes Resolved Hypertension Continue baseline treatment Follow blood pressures Adjust treatments as needed Anemia Thrombocytopenia Monitor CBC DVT prophylaxis SCDs Discharge Planning: Anticipate discharge tomorrow morning after f/u UA and CMP performed; patient plans to go to rehabilitation facility (6) Respiratory failure Qualifiers: Chronicity: acute
[2018-01-27 21:29] LABS: Albumin 3.1 g/dL (3.4-5.0); Anion Gap 10 meq/L (5-15); Aspartate Aminotransferase 221 U/L (15-37); Blood Urea Nitrogen 15 mg/dL (7-18); Calcium 9.1 mg/dL (8.5-10.1); Carbon Dioxide 21.6 meq/L (21.0-32.0); Chloride 103 meq/L (98-107); Glomerular Filtration Rate Greater Than 89 mL/min (>89); Glucose,Random 123 mg/dL (74-106); Potassium 4.3 meq/L (3.5-5.1); Sodium 135 meq/L (136-145)
[2018-01-27 21:32] LABS: Alanine Aminotransferase 360 U/L (12-78); Alkaline Phosphatase 142 U/L (45-117); Total Protein 7.1 g/dL (6.4-8.2)
[2018-01-27 22:25] LABS: Bacteria,Urine Occasional /hpf; Bilirubin,Urine Negative (Negative); Clarity,Urine Hazy (Clear); Color,Urine Yellow (Yellw/Straw); Glucose,Urine (UA) Negative (Negative); Leukocyte Esterase,Urine Moderate (Negative); Mucus,Urine Few /lpf (Occasional); Nitrite,Urine Negative (Negative); Specific Gravity,Urine 1.012 (1.002-1.035); Squamous Epithelial Cell,Urine <1 /hpf (0-5)
[2018-01-28] MEDS: Chlorhexidine Gluconate 2% 1 Pack (2 Cloths) TOPICAL SCH (06:14)
[2018-01-28] MEDS: QUEtiapine 25 MG Tablet PO SCH (06:15)
[2018-01-28] MEDS: dilTIAZem 60 MG Tablet PO SCH ×2 (06:19→09:25)
--- NOTE | 2018-01-28 09:17 | P.DS ---
Date of admission: 01/16/18 12:05 Primary care physician: UNKNOWN Attending physician on discharge: El Pierce Anticipated date of discharge: 01/28/18 Brief History from admission: HPI by Dr. Ventura: Patient 47-year-old with past medical history significant for a alcohol dependence, alcohol induced pancreatitis, cocaine and heroin abuse, hypertension who presented to the emergency department with left sided chest pain. Chest pain was atypical and initial workup negative. Initial plan was to admit to chest pain center for serial EKG and cardiac enzymes for ACS rule out. Patient was also found to have gross hematuria and a CT abdomen pelvis showed obstructing right ureteropelvic junction calculus. Urology consult was requested. Toxicology screen showed alcohol level of 96. At about 1130 patient was noted to be tachycardic and was witnessed to have tonic-clonic seizure. Patient had 1 mg of Ativan before additional 2 mg IV was given with control of seizure. I evaluated the patient in the emergency department, he is postictal but wakes up and is protecting airway. EEG had been ordered. I have ordered a CT of the head, continue Ativan as needed for seizures also place on scheduled Librium. Supplement supplement multivitamin thiamine, strict seizure and alcohol precautions DS: Diagnosis - Discharge Diagnosis (1) Ureteropelvic junction (UPJ) obstruction Status: Acute (2) Elevated LFTs Status: Acute (3) Delirium tremens Status: Resolved (4) Alcohol withdrawal Status: Resolved (5) Heroin withdrawal Status: Resolved (6) Respiratory failure Status: Resolved (7) Hepatitis C antibody positive in blood Status: Chronic DS: Medications - Discharge Medications Prescriptions: cephalexin 500 mg PO Q8HR #30 cap chlordiazepoxide HCl See Label Instructions .ROUTE .COMPLEX PRN #3 cap PRN Reason: Withdrawal clonidine HCl See Label Instructions .ROUTE .COMPLEX #42 tab hydrocodone-acetaminophen 1 tab PO Q4H PRN #12 tab PRN Reason: Pain (Scale Score 7-10) lisinopril 20 mg PO DAILY #30 tab quetiapine See Label Instructions .ROUTE .COMPLEX #20 tab DS: Summary Hospital Course: Mr. Samuel is a 47-year-old with PMH of alcohol dependence, alcohol induced pancreatitis, cocaine and heroin abuse, hypertension who presented with chest pain. Chest pain ruled out for ACS. Patient fount day have right ureteral calculi; urology consulted. Patient was given nephrotomy tube and ureteral stent. Patient had a seizure during hospitalization suspected secondary to withdrawal. Due to withdrawal, patient emergently intubated 01/17. Patient was extubated 01/21. Patient improved during hospitalization; he was treated with Rocephinm for empiric UTI. Patient was treated for withdrawal with Librium taper. Patient also was given Clonidine and Seroquel for withdrawal/mood stabilization. Patient had LFT' elevations during hospitalization which were stable; suspect alcohol vs Hep C related. Patient was also treated for chronic HTN during hospitalization. His nephrostomy tube was capped; he plans to have shockwave lithotripsy with Urology as an outpatient. Patient seen today. He plans to go to rehabilitation facility on discharge. He has continued right back pain but thinks it is improving. He will plan to follow -up with Urology as an outpatient. - Time Spent with Patient Total time spent providing and/or coordinating discharge services: Exam Vital signs: Vital Signs 01/27/18 12:00 01/27/18 16:00 01/27/18 20:00 Temperature 98.3 F 97.4 F L 97.5 F L Pulse Rate 63 61 70 Respiratory Rate 20 20 16 Blood Pressure 106/57 L 131/87 135/88 Pulse Oximetry 98 98 98 01/28/18 00:00 01/28/18 04:00 01/28/18 08:00 Temperature 98 F 97.6 F Pulse Rate 94 H 64 70 Respiratory Rate 16 16 Blood Pressure 147/74 H 144/94 H 134/78 Pulse Oximetry 97 100 97 Intake & Output 01/27/18 01/28/18 01/28/18 18:59 06:59 18:59 Intake Total 720 / 720 960 / 960 Output Total 100 / 100 Balance 719 / 719 860 / 860 Weight 71.1 kg Intake: Oral 720 / 720 960 / 960 Output: Urine 100 / 100 Stool Other: # Voids 3 Date of Last Bowel Movement 01/27/18 01/27/18 # Bowel Movements 2 Narrative: Gen: Not in distress Eyes: normal conjunctivae CV: Regular rate and rhythm; normal perfusion Respiratory: CTAB; normal rate Abdomen: soft, nontender, normal BS Skin: Right nephrostomy tube in place; no surrounding erythema Neuro: Awake and alert. Grossly normal CN. Grossly normal peripheral motor/ sensory function Results Procedures completed during hospitalization: Nephrostomy tube placement, ureteral stent 01/18 Labs on day of discharge: Labs from last 24 hours 01/28/18 01/27/18 01/27/18 08:12 18:53 18:00 Sodium Pending 135 L Potassium Pending 4.3 Chloride Pending 103 Carbon Dioxide Pending 21.6 Anion Gap Pending 10 BUN Pending 15 Creatinine Pending 0.86 Estimated GFR Greater than 89 Random Glucose Pending 123 H Calcium Pending 9.1 Total Bilirubin Pending 0.4 AST Pending 221 H ALT Pending 360 H Alkaline Phosphatase Pending 142 H Total Protein Pending 7.1 Albumin Pending 3.1 L Urine Color Yellow Urine Clarity Hazy H Urine pH 6.0 Ur Specific [place] 1.012 Urine Protein 30 H Urine Glucose (UA) Negative Urine Ketones Negative Urine Occult Blood Moderate H Urine Nitrate Negative Urine Bilirubin Negative Urine Urobilinogen 2.0 H Ur Leukocyte Esterase Moderate H Urine RBC 47 H Urine WBC 19 H Ur Squamous Epith Cells <1 Urine Bacteria Occasional H Urine Mucus Few H Urine Comment Culture indicated Preliminary micro results at discharge 01/24/18 11:20 Aerobic Blood Culture - Preliminary Blood - Peripheral No growth in 3 days 01/24/18 11:30 Aerobic Blood Culture - Preliminary Blood - Peripheral No growth in 3 days Discharge Plan - Discharge Disposition Patient Disposition: Discharge Home - Discharge Condition Condition: Stable - Discharge Order Discharge Orders: Discharge Order (Routine); Ordered 01/28/18 Ordered By: El Pierce - Discharge Details Anticipated Discharge Date: 01/28/18 Discharge Comment: Patient states he cannot pay for meds easily; are we able to send him with Keflex/Seroquel/Clonidine/Diltiazem? - Physicians Team Primary Care Provider: UNKNOWN, Attending Provider: El Pierce Other Providers: REMIGIO HARRISON M.D., OPHTHAL. ; Mk Gong DO ; Brayden Del Cid MD - Rxs /Orders / Referrals /Forms Prescriptions: New cephalexin 500 mg Capsule 500 mg PO Q8HR Qty: 30 RF: 0 chlordiazepoxide HCl 5 mg Capsule See Label Instructions .ROUTE .COMPLEX PRN (Reason: Withdrawal) Qty: 3 RF : 0 clonidine HCl 0.1 mg Tablet See Label Instructions .ROUTE .COMPLEX Qty: 42 RF: 0 hydrocodone-acetaminophen 5-325 mg Tablet 1 tab PO Q4H PRN (Reason: Pain (Scale Score 7-10)) Qty: 12 RF: 0 lisinopril 20 mg Tablet 20 mg PO DAILY Qty: 30 RF: 0 quetiapine 25 mg Tablet See Label Instructions .ROUTE .COMPLEX Qty: 20 RF: 0 Referrals: Mk Gong DO [UROLOGY] - See Instructions (Please call for follow-up appointment for shockwave lithotripsy and f/u of nephrostomy tube) UNKNOWN, [Primary Care Provider] - See Instructions (Please follow-up with a primary care physician in 1-2 weeks. Can call [phone] for 1 time appointment.) - Post Discharge Care Plan Care Plan Goals: Your Health Problems: Goals to Promote Your Health: * To prevent worsening of your condition * To maintain your health at the optimal level Directions to Meet Your Goals: * Take your medications as prescribed * Follow your dietary instruction * Follow activity as directed * Keep your appointments as scheduled * Take your immunizations and boosters as scheduled * If your symptoms worsen call your PCP * If no PCP go to Urgent Care or Emergency Room Smoking is dangerous to your health. Avoid second hand smoke. You may reach the 24-hour crisis hotline for domestic abuse at .
[2018-01-28] MEDS: Docusate Sodium Liq 100 MG/10 ML UDC PO SCH (09:24)
[2018-01-28] MEDS: Senna/Docusate Sodium 8.6/50 MG Tablet PO SCH (09:25)
[2018-01-28] MEDS: Folic Acid 1 MG Tablet PO SCH (09:25)
[2018-01-28] MEDS: Sennosides Liq 8.8 MG/5 ML UDC PO SCH (09:28)
[2018-01-28 09:35] LABS: Alanine Aminotransferase 343 U/L (12-78)
[2018-01-28 09:37] LABS: Alkaline Phosphatase 146 U/L (45-117); Total Protein 7.6 g/dL (6.4-8.2)
[2018-01-28 09:46] LABS: Albumin 3.3 g/dL (3.4-5.0); Anion Gap 10 meq/L (5-15); Aspartate Aminotransferase 170 U/L (15-37); Blood Urea Nitrogen 16 mg/dL (7-18); Calcium 9.2 mg/dL (8.5-10.1); Carbon Dioxide 22.8 meq/L (21.0-32.0); Chloride 103 meq/L (98-107); Glomerular Filtration Rate Greater Than 89 mL/min (>89); Glucose,Random 86 mg/dL (74-106); Potassium 4.2 meq/L (3.5-5.1); Sodium 136 meq/L (136-145)
== END 2018-01-28 12:10 | disposition home or self-care (01) ==
LOC: HIMC 12:05 → N04 01-23 16:03
PROVIDERS: ADMIT Family Medicine; ATTEND Family Medicine

== ENCOUNTER 2018-02-09 16:06 | Inpatient (IN) ==
--- NOTE | 2018-02-09 20:09 | CT ---
EXAM DATE: 02/09/2018 7:54 PM EDT AGE/SEX: 47 years / Male INDICATIONS: Flank pain and hematuria. CLINICAL DATA: This is the patient's initial encounter. Patient reports that signs and symptoms have been present for 1 day and indicates a pain score of 5/10. MEDICAL/SURGICAL HISTORY: Hypertension. Renal disease, end stage. None. RADIATION DOSE: 9.96 CTDI (mGy) COMPARISON: No prior exams available for comparison. TECHNIQUE: Multiple contiguous axial images were obtained through the abdomen. Images were obtained using multiple row detector helical technique. Using automated exposure control and adjustment of the mA and/or kV according to patient size, radiation dose was kept as low as reasonably achievable to o btain optimal diagnostic quality images. DICOM format image data is available electronically for rev iew and comparison. FINDINGS: There is a double-J stent in the right renal collecting system and a percutaneous nephrostomy on the right side. There is a 2 cm calcified stone in the extrarenal pelvis on the right side. No definite stones along the course of the right double-J stent. The distal stent is coiled within the urinary bl adder. On the left side, there are 2 nonobstructing calcified stones in the lower pole collecting system mayuri suring 2 mm. No evidence of hydronephrosis. No calcifications along the course of the left ureter. Ex ophytic cyst projects from the lower pole of the left kidney and measures 2.4 cm. There is also a cor tical cyst posterior midpole the left kidney measuring 2.1 cm. No calcified gallstones. The aorta is normal dimension. No dilated loops of small or large bowel. No evidence of ascites. No evidence of free air in the abdomen or retroperitoneum. CONCLUSION: 1. Internal and external drains on the right side surrounding a 2 cm calcified stone in the extraren al pelvis. 2. There are 2 small nonobstructing stones lower pole collecting system left kidney. 3. No evidence of hydronephrosis on either side. Electronically signed by: Beltrna Bar MD 02/09/2018 8:08 PM EDT
--- NOTE | 2018-02-09 20:19 | ED ---
HPI General Chief complaint: Urogenital-Male Stated complaint: Patient states flank pain History of Present Illness HPI Narrative: 47-year-old male presents to the emergency department in the care of his rehab caregiver for evaluation of right flank pain right lower abdominal pain hematuria and recommendation from his rehab physician Dr. Lamin Cruz for admission with procedural intervention possible lithotripsy by his telephone clerk Dr. Mk Gong tomorrow. Patient has been doing fairly well since 01/23/18. Patient had been having issues with some redness and induration around his percutaneous nephrostomy stent site that was placed while he was hospitalized with sepsis at the end of December. Patient was identified during that hospitalization to have a large 2 cm stone at the UPJ. Patient has a ureteral stent in place as well as the percutaneous right nephrostomy stent placed. Patient has had some recent hematuria although we reportedly this is starting to clear. Patient's had no fever chills. Patient continues to complain of flank pain. Due to his ongoing symptoms the recommendation was to return him to the hospital from the rehab facility for procedural intervention. Patient has significant past medical history for alcohol abuse hospitalized with alcohol withdrawal delirium tremens also heroin abuse with heroin withdrawal had respiratory failure required intubation and ICU stay for sepsis at the end of December. Patient is currently on Keflex for localized skin irritation/nephrostomy site infection and this has resolved on oral antibiotic patient has no redness drainage induration or tenderness at the nephrostomy site at this time. No known exacerbating or alleviating factors. Patient has complained of some mild nausea. No chest pain no shortness of breath. No diarrhea bloody mucoid explosive diarrhea. Related Data Home Medications Medication Instructions Recorded Confirmed oxybutynin chloride 5 mg PO BID 02/09/18 02/09/18 Previous Rx's Medication Instructions Recorded clonidine HCl See Label Instructions .ROUTE 01/28/18 .COMPLEX #42 tab lisinopril 20 mg PO DAILY #30 tab 01/28/18 Allergies Allergy/AdvReac Type Severity Reaction Status Date / Time No Known Allergies Allergy Unverified 02/09/18 16:42 Review of Systems Except as stated in HPI: all other systems reviewed are negative [facility] History Medical History Alcohol abuse (Acute) Heroin abuse (Acute) Hypertension (Acute) Renal calculi (Acute) Surgical History Surgical History H/O nephrostomy (Acute) History of failed arthroplasty of ankle (Acute) History of ureter stent (Acute) Family History Family History Father H/O ETOH abuse Mother HTN (hypertension) Social History Social History Substance History: Past History Second Hand Smoke Exposure: Yes Smoking Status: Former smoker Tobacco Type: Cigarettes How Often Do You Have a Drink Containing Alcohol: Monthly or less Recent Travel in [place] within the Last 8 Weeks: No Recent Out of Country Travel within the Last 8 Weeks: No Substance Abuse Detail Heroin: Substance Use Status: Sustained Remission Route Used Substance Abuse: Inhalation Substance Abuse Comment: pt states he used heroine for pain management Reason for Use: Feels Good Immunization History Tetanus Immunization: Unsure Hx Influenza Vaccine This Season: No Exam Narrative Exam Narrative: GENERAL: Well-nourished, well-developed patient. No acute distress no respiratory distress SKIN: Focused skin assessment warm/dry. HEAD: Normocephalic. EYES: No scleral icterus. No injection or drainage. NECK: Supple, trachea midline. No JVD or lymphadenopathy. CARDIOVASCULAR: Regular rate and rhythm without murmurs, gallops, or rubs. RESPIRATORY: Breath sounds equal bilaterally. No accessory muscle use. GASTROINTESTINAL: Abdomen soft, non-tender, nondistended. No guarding no rebound. MUSCULOSKELETAL: No cyanosis, or edema. BACK: Nontender without obvious deformity. Right flank has a percutaneous nephrostomy stent in place insertion site is clean without induration erythema tenderness or drainage also no warmth at the site however there is mild right- sided CVA tenderness to percussion and no left-sided CVA tenderness. Course Initial Documented Vital Signs Temperature 98.5 F 02/09/18 16:42 Pulse Rate 90 02/09/18 16:42 Respiratory Rate 16 02/09/18 16:42 Blood Pressure 150/102 H 02/09/18 16:42 Pulse Oximetry 98 02/09/18 16:42 Last Documented Vital Signs Temperature 97.7 F 02/15/18 00:00 Pulse Rate 95 H 02/15/18 00:00 Respiratory Rate 18 02/15/18 00:00 Blood Pressure 140/80 02/15/18 04:00 Pulse Oximetry 96 02/15/18 00:00 Discharge Plan Discharge Disposition Patient Disposition: 03 Discharge to SNF Discharge Condition Condition: Stable Discharge Order Discharge Orders: Discharge Order (Routine); Ordered 02/15/18 Ordered By: Lamin Cruz Urologvalentin Clear for Discharge (Routine); Ordered 02/10/18 Ordered By: Kenneth Griffith Discharge Details Diagnosis: Acute right flank pain, Renal calculus, right Physicians Team ED Provider: [facility] Primary Care Provider: UNKNOWN, Attending Provider: Lamin Cruz Other Providers: Mk Gong Discharge Interventions Interventions: ED Discharge Assessment Last Done: 02/10/18 02:17 Vital Signs Last Done: 02/09/18 20:01 Status ED Status: Left Department Discharge Information Discharge Date/Time: 02/10/18 02:18 Discharge Location: [facility] Medical Decision Making MDM Narrative Medical decision making narrative: 47-year-old male presents from rehab for evaluation of nephrostomy site and recommend admission for procedural intervention by his urologist Dr. Gong. Specimens collected and sent for resulting CT abdomen pelvis reveals that there is a percutaneous nephrostomy stent and ureteral stent without evidence of right-sided hydroureter or hydronephrosis 2 cm stone is still at the UPJ on the left side there are 2 small inferior renal pelvis stones with no hydronephrosis or hydroureter. Call placed to medicine to admit patient for procedural intervention by his urologist. No evidence for urinary tract infection shows occult blood and RBCs culture not indicated. Patient informed of imaging results and plan for observation admission Differential Diagnosis Differential Diagnosis: Nephrostomy tube malfunction, hydronephrosis or hydroureter, UTI, renal failure Medical Records Medical records reviewed: Yes I reviewed the patient's medical records. Lab Data Result diagrams: 02/09/18 20:15 02/10/18 04:45 Lab Results 02/09/18 02/09/18 02/09/18 Range/Units 20:15 20:15 20:15 WBC 11.5 H (4.0-11.0) th/mm3 RBC 4.79 (4.50-5.90) mil/mm3 Hgb 14.8 (13.0-17.0) gm/dL Hct 44.2 (39.0-51.0) % MCV 92.2 (80.0-100.0) fL MCH 30.8 (27.0-34.0) pg MCHC 33.4 (32.0-36.0) % RDW 13.3 (11.6-17.2) % Plt Count 220 (150-450) th/mm3 MPV 10.3 (7.0-11.0) fL Neut % (Auto) 55.0 (16.0-70.0) % Lymph % (Auto) 25.9 (9.0-44.0) % [place] % (Auto) 10.4 H (0.0-8.0) % Eos % (Auto) 7.7 H (0.0-4.0) % Baso % (Auto) 1.0 (0.0-2.0) % Neut # (Auto) 6.3 (1.8-7.7) th/mm3 Lymph # (Auto) 3.0 (1.0-4.8) th/mm3 [place] # (Auto) 1.2 H (0.0-0.9) th/mm3 Eos # (Auto) 0.9 H (0.0-0.4) th/mm3 Baso # (Auto) 0.1 (0.0-0.2) th/mm3 WBC Differential . Differential Comment Auto diff final Sodium 140 (136-145) meq/L Potassium 4.2 (3.5-5.1) meq/L Chloride 105 (98-107) meq/L Carbon Dioxide 25.7 (21.0-32.0) meq/L Anion Gap 9 (5-15) meq/L BUN 20 H (7-18) mg/dL Creatinine 0.94 (0.60-1.30) mg/dL Estimated GFR 86 L (>89) mL/min Random Glucose 97 (74-106) mg/dL Calcium 9.8 (8.5-10.1) mg/dL Total Bilirubin 0.4 (0.2-1.0) mg/dL AST 61 H (15-37) U/L ALT 100 H (12-78) U/L Alkaline Phosphatase 99 (45-117) U/L Total Protein 7.9 (6.4-8.2) g/dL Albumin 3.6 (3.4-5.0) g/dL Lipase 772 H (73-393) U/L Urine Color Yellow (Yellw/Straw) Urine Clarity Cloudy H (Clear) Urine pH 7.0 (5.0-8.5) Ur Specific [place] 1.015 (1.002-1.035) Urine Protein 30 H (Neg-Trace) mg/dL Urine Glucose (UA) Negative (Negative) mg/dL Urine Ketones Negative (Negative) mg/dL Urine Occult Blood Large H (Negative) Urine Nitrate Negative (Negative) Urine Bilirubin Negative (Negative) Urine Urobilinogen Less than 2 (Less than 2) mg/dL Ur Leukocyte Esterase Large H (Negative) Urine RBC 86 H (0-3) /hpf Urine WBC 5 (0-5) /hpf Ur Squamous Epith Cells <1 (0-5) /hpf Amorphous Sediment Rare H (None) /hpf Micro UA Comment Culture not ind Urine Culture Comments Culture not ind 02/10/18 Range/Units 04:45 WBC (4.0-11.0) th/mm3 RBC (4.50-5.90) mil/mm3 Hgb (13.0-17.0) gm/dL Hct (39.0-51.0) % MCV (80.0-100.0) fL MCH (27.0-34.0) pg MCHC (32.0-36.0) % RDW (11.6-17.2) % Plt Count (150-450) th/mm3 MPV (7.0-11.0) fL Neut % (Auto) (16.0-70.0) % Lymph % (Auto) (9.0-44.0) % [place] % (Auto) (0.0-8.0) % Eos % (Auto) (0.0-4.0) % Baso % (Auto) (0.0-2.0) % Neut # (Auto) (1.8-7.7) th/mm3 Lymph # (Auto) (1.0-4.8) th/mm3 [place] # (Auto) (0.0-0.9) th/mm3 Eos # (Auto) (0.0-0.4) th/mm3 Baso # (Auto) (0.0-0.2) th/mm3 WBC Differential Differential Comment Sodium 139 (136-145) meq/L Potassium 4.3 (3.5-5.1) meq/L Chloride 106 (98-107) meq/L Carbon Dioxide 21.8 (21.0-32.0) meq/L Anion Gap 11 (5-15) meq/L BUN 17 (7-18) mg/dL Creatinine 0.82 (0.60-1.30) mg/dL Estimated GFR Greater than 89 (>89) mL/min Random Glucose 96 (74-106) mg/dL Calcium 9.0 D (8.5-10.1) mg/dL Total Bilirubin 0.5 (0.2-1.0) mg/dL AST 57 H (15-37) U/L ALT 92 H (12-78) U/L Alkaline Phosphatase 92 (45-117) U/L Total Protein 7.3 D (6.4-8.2) g/dL Albumin 3.3 L (3.4-5.0) g/dL Lipase (73-393) U/L Urine Color (Yellw/Straw) Urine Clarity (Clear) Urine pH (5.0-8.5) Ur Specific [place] (1.002-1.035) Urine Protein (Neg-Trace) mg/dL Urine Glucose (UA) (Negative) mg/dL Urine Ketones (Negative) mg/dL Urine Occult Blood (Negative) Urine Nitrate (Negative) Urine Bilirubin (Negative) Urine Urobilinogen (Less than 2) mg/dL Ur Leukocyte Esterase (Negative) Urine RBC (0-3) /hpf Urine WBC (0-5) /hpf Ur Squamous Epith Cells (0-5) /hpf Amorphous Sediment (None) /hpf Micro UA Comment Urine Culture Comments Imaging Data Radiologist's impression: Abdomen/Pelvis CT 02/09/18 19:36 CONCLUSION: 1. Internal and external drains on the right side surrounding a 2 cm calcified stone in the extrarenal pelvis. 2. There are 2 small nonobstructing stones lower pole collecting system left kidney. 3. No evidence of hydronephrosis on either side. Ureteral Stent Placement 02/11/18 00:00 CONCLUSION: 1. Uncomplicated nephroureteral stent placement as above.
[2018-02-09 20:37] LABS: Baso # (Auto) 0.1 th/mm3 (0.0-0.2); Eos # (Auto) 0.9 th/mm3 (0.0-0.4); Eos % (Auto) 7.7 % (0.0-4.0); Hematocrit 44.2 % (39.0-51.0); Hemoglobin 14.8 gm/dL (13.0-17.0); Lymph % (Auto) 25.9 % (9.0-44.0); Mean Corpuscular HGB Conc 33.4 % (32.0-36.0); Mean Corpuscular Hemoglobin 30.8 pg (27.0-34.0); Mean Corpuscular Volume 92.2 fL (80.0-100.0); Mean Platelet Volume 10.3 fL (7.0-11.0); Mono # (Auto) 1.2 th/mm3 (0.0-0.9); Mono % (Auto) 10.4 % (0.0-8.0); Neut # (Auto) 6.3 th/mm3 (1.8-7.7); Platelet Count 220 th/mm3 (150-450); Red Blood Count 4.79 mil/mm3 (4.50-5.90); Red Cell Distribution Width 13.3 % (11.6-17.2); White Blood Count 11.5 th/mm3 (4.0-11.0)
[2018-02-09 20:46] LABS: Amorphous Sediment,Urine Rare /hpf; Bilirubin,Urine Negative (Negative); Clarity,Urine Cloudy (Clear); Color,Urine Yellow (Yellw/Straw); Glucose,Urine (UA) Negative (Negative); Leukocyte Esterase,Urine Large (Negative); Nitrite,Urine Negative (Negative); Specific Gravity,Urine 1.015 (1.002-1.035); Squamous Epithelial Cell,Urine <1 /hpf (0-5)
[2018-02-09 20:52] LABS: Albumin 3.6 g/dL (3.4-5.0); Anion Gap 9 meq/L (5-15); Aspartate Aminotransferase 61 U/L (15-37); Blood Urea Nitrogen 20 mg/dL (7-18); Calcium 9.8 mg/dL (8.5-10.1); Carbon Dioxide 25.7 meq/L (21.0-32.0); Chloride 105 meq/L (98-107); Glomerular Filtration Rate 86 mL/min (>89); Glucose,Random 97 mg/dL (74-106); Lipase 772 U/L (73-393); Potassium 4.2 meq/L (3.5-5.1); Sodium 140 meq/L (136-145)
[2018-02-09 20:53] LABS: Alanine Aminotransferase 100 U/L (12-78)
[2018-02-09 20:56] LABS: Alkaline Phosphatase 99 U/L (45-117); Total Protein 7.9 g/dL (6.4-8.2)
--- NOTE | 2018-02-09 22:17 | P.HPIM ---
History of Present Illness Primary Care Physician: Lamin Cruz MD Chief Complaint: kidney stone History of Present Illness: 47 y/o male with history of htn, kidney stones, alcohol abuse, substance abuse was sent to the ED from a rehab facility for evaluation of his kidney stone. Patient has a known kidney stone and has been followed with Dr. Cruz and was instructed to come in and be evaluated by urology. Patient was admitted on 01/23 in which he had a percutaneous nephrostomy stent was placed, he also has a ureteral stent that was placed many years ago. He has been having hematuria, along with redness around his nephrostomy stent site. He is complaining of right abdominal pain with radiation to his back with associated chills, and nausea, worse with movement better with rest. It was during his December admission that a Large 2 cm stone at the UPJ was discovered. Denies any chest pain or sob. - Diagnosis (1) Ureteropelvic junction (UPJ) obstruction Inpatient Certification: I certify that the inpatient services were ordered in accordance with Medicare regulations governing the order. This includes certification that hospital inpatient services are reasonable and necessary and in the case of services not specified as inpatient-only under 42 CFR 419.22(n), that they are appropriately provided as inpatient services in accordance to with the 2-midnight benchmark under 43 CFR 412.3(e) Estimated Total Length of Stay (Days): 2 Plans for Post Hospital Care: Home Review of Systems All other systems reviewed negative except as stated in [facility]PI [facility] - History History Provided By: Patient, Family Member - Medical History Medical History: Medical History (Last Reviewed 02/09/18 @ 20:16 by Caitlin Neil MD) Alcohol abuse Heroin abuse Hypertension Renal calculi - Surgical History Surgical History: Surgical History (Last Reviewed 02/09/18 @ 20:16 by Caitlin Neil MD) H/O nephrostomy History of failed arthroplasty of ankle History of ureter stent - Family History Family History: Family History (Last Updated 02/10/18 @ 00:20 by RADHA Beckman) Father H/O ETOH abuse Mother HTN (hypertension) - Tobacco History Second Hand Smoke Exposure: Yes Tobacco Use In Past 30 Days: Yes Smoking Status: Former smoker Tobacco Type: Cigarettes - Alcohol History How Often Do You Have a Drink Containing Alcohol: Monthly or less - Substance Use History Substance History: Past History - Substance Use Type Heroin Status: Sustained Remission Route Used: Inhalation Reason for Use: Feels Good Comment: pt states he used heroine for pain management - Travel History Recent Travel in the [place] Within the Last 8 Weeks: No Recent Travel Out of the Country Within the Last 8 Weeks: No - Immunization History Tetanus Immunization: Unsure Hx Influenza Vaccine This Season: No Medications and Allergies Active Medications: Active Medications Sodium Chloride (Ns Flush) 2 ml IV.FLUSH PRN PRN PRN Reason: FLUSH AFTER USING IV ACCESS Allergies Allergy/AdvReac Type Severity Reaction Status Date / Time No Known Allergies Allergy Unverified 02/09/18 16:42 Home Medications Medication Instructions Recorded Confirmed Type oxybutynin chloride 5 mg PO BID 02/09/18 02/09/18 History Exam Vital signs: Vital Signs 02/09/18 16:42 02/09/18 18:28 02/09/18 20:01 Temperature 98.5 F Pulse Rate 90 89 84 Respiratory Rate 16 23 15 Blood Pressure 150/102 H 139/92 H 130/87 Pulse Oximetry 98 97 97 Intake & Output 02/09/18 02/09/18 02/10/18 06:59 18:59 06:59 Weight 68.039 kg - Constitutional no acute distress - Routine HEENT Exam Head: Present: atraumatic Eye: Present: EOMI, PERRL - Routine Neck Exam Present: supple, full ROM. Absent: JVD - Routine Respiratory Exam Absent: accessory muscle use, rhonchi, stridor, wheezes - Routine Cardiovascular Exam Present: RRR. Absent: murmur, gallop - Routine Abdominal Exam Present: soft, tenderness (RUQ tenderness, CVA tenderness) Comments: Right nephrostomy tube in place, with surrounding erythema - Routine Skin Exam Present: intact - Routine Neurological Exam Present: alert, oriented X3 Results - Labs CBC & Chem 7: 02/09/18 20:15 02/09/18 20:15 Labs: Short CBC 02/09/18 Range/Units 20:15 WBC 11.5 H (4.0-11.0) th/mm3 Hgb 14.8 (13.0-17.0) gm/dL Hct 44.2 (39.0-51.0) % Plt Count 220 (150-450) th/mm3 BMP 07/17/18 20:15 Sodium 140 Potassium 4.2 Chloride 105 Carbon Dioxide 25.7 BUN 20 H Creatinine 0.94 Calcium 9.8 Liver Function 02/09/18 Range/Units 20:15 Total Bilirubin 0.4 (0.2-1.0) mg/dL AST 61 H (15-37) U/L ALT 100 H (12-78) U/L Alkaline Phosphatase 99 (45-117) U/L Albumin 3.6 (3.4-5.0) g/dL Urine 02/09/18 Range/Units 20:15 Urine Color Yellow (Yellw/Straw) Urine Clarity Cloudy H (Clear) Urine pH 7.0 (5.0-8.5) Ur Specific [place] 1.015 (1.002-1.035) Urine Protein 30 H (Neg-Trace) mg/dL Urine Glucose (UA) Negative (Negative) mg/dL - Imaging Impressions Abdomen/Pelvis CT 02/09/18 19:36 CONCLUSION: 1. Internal and external drains on the right side surrounding a 2 cm calcified stone in the extrarenal pelvis. 2. There are 2 small nonobstructing stones lower pole collecting system left kidney. 3. No evidence of hydronephrosis on either side. Caprini VTE Risk Assessment Caprini VTE Risk Assessment: No/Low Risk (score <= 1) Caprini Risk Assessment Model: Point Value = 1 Point Value = 2 Point Value = 3 Point Value = 5 Age 41-60 Minor surgery BMI > 25 kg/m2 Swollen legs Varicose veins or History of unexplained or recurrent spontaneous Oral contraceptives or hormone replacement Sepsis (< 1 month) Serious lung disease, including pneumonia (< 1 month) Abnormal pulmonary function Acute myocardial infarction Congestive heart failure (< 1 month) History of inflammatory bowel disease Medical patient at bed rest Age 61-74 Arthroscopic surgery Major open surgery (> 45 min) Laparoscopic surgery (> 45 min) Malignancy Confined to bed (> 72 hours) Immobilizing plaster cast Central venous access Age >= 75 History of VTE Family history of VTE Factor V Leiden Prothrombin [id number] Lupus anticoagulant Anticardiolipin antibodies Elevated serum homocysteine Heparin-induced thrombocytopenia Other congenital or acquired thrombophilia Stroke (< 1 month) Elective arthroplasty Hip, pelvis, or leg fracture Acute spinal cord injury (< 1 month) Prophylaxis Regimen: Total Risk Factor Score Risk Level Prophylaxis Regimen 0-1 Low Early ambulation 2 Moderate Order ONE of the following: *Sequential Compression Device (SCD) *Heparin 5000 units SQ BID 3-4 Higher Order ONE of the following medications: *Heparin 5000 units SQ TID *Enoxaparin/Lovenox 40 mg SQ daily (WT < 150 kg, CrCl > 30 mL/min) *Enoxaparin/Lovenox 30 mg SQ daily (WT < 150 kg, CrCl > 10-29 mL/min) *Enoxaparin/Lovenox 30 mg SQ BID (WT < 150 kg, CrCl > 30 mL/min) AND/OR *Sequential Compression Device (SCD) 5 or more Highest Order ONE of the following medications: *Heparin 5000 units SQ TID (Preferred with Epidurals) *Enoxaparin/Lovenox 40 mg SQ daily (WT < 150 kg, CrCl > 30 mL/min) *Enoxaparin/Lovenox 30 mg SQ daily (WT < 150 kg, CrCl > 10-29 mL/min) *Enoxaparin/Lovenox 30 mg SQ BID (WT < 150 kg, CrCl > 30 mL/min) AND *Sequential Compression Device (SCD) Assessment and Plan - Assessment (1) Ureteropelvic junction (UPJ) obstruction Code(s): N13.5 - Crossing vessel and stricture of ureter without hydronephrosis Status: Acute - Plan Urolithiasis Abdominal CT reviewed and shows Internal and external drains on the right side surrounding a 2 cm calcified stone in the extrarenal pelvis. -Consult urology for possible intervention -Pain management with Tylenol PO due to rehab status -NPO -IV Rocephin given for abnormal UA, culture not indicated Hypertension -Resume home medications lisinopril, monitor vitals DVT prophylaxis: SCD Discussed Condition With: Patient and RN
[2018-02-09] MEDS: Sod Chloride 0.9% Inj 1,000 ML IV.CONT SCH (23:47)
[2018-02-10] MEDS: Acetaminophen 325 MG Tablet PO PRN ×2 (01:41→19:47)
[2018-02-10 06:15] LABS: Alanine Aminotransferase 92 U/L (12-78); Albumin 3.3 g/dL (3.4-5.0); Alkaline Phosphatase 92 U/L (45-117); Anion Gap 11 meq/L (5-15); Aspartate Aminotransferase 57 U/L (15-37); Blood Urea Nitrogen 17 mg/dL (7-18); Carbon Dioxide 21.8 meq/L (21.0-32.0); Chloride 106 meq/L (98-107); Glomerular Filtration Rate Greater Than 89 mL/min (>89); Glucose,Random 96 mg/dL (74-106); Potassium 4.3 meq/L (3.5-5.1); Sodium 139 meq/L (136-145); Total Protein 7.3 g/dL (6.4-8.2)
[2018-02-10] MEDS: Sod Chloride 0.9% Inj 1,000 ML IV.CONT SCH ×2 (09:59→21:14)
[2018-02-10] MEDS: Lisinopril 20 MG Tablet PO SCH (09:59)
[2018-02-10] MEDS: Lidocaine 5% Patch T-DERMAL SCH (10:51)
[2018-02-10] MEDS ORDERED: Glycopyrrolate Inj 1 MG/5 ML Syringe IV.PUSH ONE (12:00)
[2018-02-10] MEDS ORDERED: Labetalol HCl Inj 100 MG/20 ML Vial IV.PUSH ONE (12:00)
[2018-02-10] MEDS ORDERED: Phenylephrine/NS 1000 MCG/10ML Syringe IV.PUSH ONE (12:00)
[2018-02-10] MEDS ORDERED: Neostigmine Inj 5 MG/5 ML Syringe IV.PUSH ONE (12:00)
[2018-02-10] MEDS ORDERED: Lidocaine PF 1% Inj 5 ML Syringe INFILTRATN ONE (12:00)
--- NOTE | 2018-02-10 14:29 | P.OP ---
- Preoperative Diagnosis (1) Renal calculus, right - Postoperative Diagnosis (1) Renal calculus, right Date of procedure: 02/10/18 Procedure: Extracorporeal shockwave lithotripsy of a 2 cm right renal calculus Anesthesia: MAC Surgeon: Kenneth Griffith MD Estimated blood loss (mL): 0 Pathology: none sent Operation and Findings: Indication for procedure: Case of a pleasant 47-year-old gentleman who is under the care of my associate Dr. Mk oGng and status post placement of a right nephroureteral tube in December of this year for management of a 2 cm right ureteropelvic junction calculus. I was asked by Dr. Gong to proceed with performing a right-sided extrapleural shockwave lithotripsy procedure today. Operative procedure in detail: Patient was brought to the operating suite and placed supine. He was then placed under general anesthesia. After an appropriate timeout was undertaken I proceeded with localizing the patient's 2 cm right renal calculus with fluoroscopy. The patient subsequently received extracorporeal shockwave lithotripsy utilizing the Dornier mobile lithotripsy device. The patient received a total of 3000 shocks with a maximum power level setting of 6. At the conclusion of the procedure the stone still appeared intact. The patient tolerated the procedure without complications and was transferred to the PACU in satisfactory condition. It is anticipated that the patient will be discharged home later today with instructions to follow-up with Dr. Gong within the next 2-3 weeks.
[2018-02-10] MEDS ORDERED: *Ondansetron Inj 4 MG/2 ML Vial PERIprocedural Use ONLY ONE (14:55)
--- NOTE | 2018-02-10 15:43 | P.PN ---
Subjective Interval history: Patient is seen lying quietly in bed. He continues to endorse back and right flank pain. He is painful but does not wish narcotic pain relievers due to his status as a recovering addict. Tells me that he is currently living at a rehab facility and plans to return there post treatment. Denies any vomiting. Intermittent nausea associated with the pain. Denies constipation or diarrhea. Does report "bloody" urine. Physical Exam Vital signs: Vital Signs 02/09/18 16:42 02/09/18 18:28 02/09/18 20:01 Temperature 98.5 F Pulse Rate 90 89 84 Respiratory Rate 16 23 15 Blood Pressure 150/102 H 139/92 H 130/87 Pulse Oximetry 98 97 97 02/10/18 00:00 02/10/18 03:38 02/10/18 08:00 Temperature 98.4 F 98.5 F 97.6 F Pulse Rate 91 H 84 73 Respiratory Rate 17 17 16 Blood Pressure 126/90 178/110 H 163/108 H Pulse Oximetry 97 97 97 02/10/18 12:00 02/10/18 14:29 02/10/18 14:45 Temperature 97.7 F 97.5 F L Pulse Rate 90 77 76 Respiratory Rate 18 21 18 Blood Pressure 164/101 H 99/64 L 122/68 Pulse Oximetry 99 99 99 02/10/18 15:00 Temperature 97.5 F L Pulse Rate 98 H Respiratory Rate 20 Blood Pressure 124/81 Pulse Oximetry 99 Intake & Output 02/09/18 02/10/18 02/10/18 18:59 06:59 18:59 Intake Total 100 / 100 1500 / 1500 Output Total 850 / 850 Balance 100 / 100 650 / 650 Weight 68.039 kg Intake: IV 100 / 100 1000 / 1000 NS Inj 1,000 ML @ 100 mls/hr IV 1000 / 1000 .CONT .Q10H [facility] Rx#:[id number] Rocephin Inj 1,000 MG In NS Inj 100 / 100 100 ML @ 200 mls/hr IV.SIG Q24H [facility] Rx#:[id number] Anesthesia Amount 500 / 500 Output: Urine 850 / 850 Other: Date of Last Bowel Movement 02/09/18 Narrative: GENERAL: Well-nourished, well-developed adult male -resting quietly but appears moderately uncomfortable. SKIN: Warm and dry. HEAD: Atraumatic. Normocephalic. CARDIOVASCULAR: Regular rate and rhythm. RESPIRATORY: No accessory muscle use. Clear to auscultation. Breath sounds equal bilaterally. GASTROINTESTINAL: Abdomen soft, non-tender, non-distended. Positive bowel sounds. Right renal drain in place -no indication of infection. Significant tenderness in back and right flank. MUSCULOSKELETAL: Extremities without clubbing, cyanosis, or edema. No obvious deformities. NEUROLOGICAL: Awake and alert. No obvious cranial nerve deficits. Motor grossly within normal limits. Normal speech. PSYCHIATRIC: Appropriate mood and affect; insight and judgment good. Results - Labs CBC & Chem 7: 02/09/18 20:15 02/10/18 04:45 Laboratory Results - last 24 hr 02/09/18 02/09/18 02/09/18 20:15 20:15 20:15 WBC 11.5 H RBC 4.79 Hgb 14.8 Hct 44.2 MCV 92.2 MCH 30.8 MCHC 33.4 RDW 13.3 Plt Count 220 MPV 10.3 Neut % (Auto) 55.0 Lymph % (Auto) 25.9 [place] % (Auto) 10.4 H Eos % (Auto) 7.7 H Baso % (Auto) 1.0 Neut # (Auto) 6.3 Lymph # (Auto) 3.0 [place] # (Auto) 1.2 H Eos # (Auto) 0.9 H Baso # (Auto) 0.1 WBC Differential . Differential Comment Auto diff final Sodium 140 Potassium 4.2 Chloride 105 Carbon Dioxide 25.7 Anion Gap 9 BUN 20 H Creatinine 0.94 Estimated GFR 86 L Random Glucose 97 Calcium 9.8 Total Bilirubin 0.4 AST 61 H ALT 100 H Alkaline Phosphatase 99 Total Protein 7.9 Albumin 3.6 Lipase 772 H Urine Color Yellow Urine Clarity Cloudy H Urine pH 7.0 Ur Specific [place] 1.015 Urine Protein 30 H Urine Glucose (UA) Negative Urine Ketones Negative Urine Occult Blood Large H Urine Nitrate Negative Urine Bilirubin Negative Urine Urobilinogen Less than 2 Ur Leukocyte Esterase Large H Urine RBC 86 H Urine WBC 5 Ur Squamous Epith Cells <1 Amorphous Sediment Rare H Micro UA Comment Culture not ind Urine Culture Comments Culture not ind 02/10/18 04:45 WBC RBC Hgb Hct MCV MCH MCHC RDW Plt Count MPV Neut % (Auto) Lymph % (Auto) [place] % (Auto) Eos % (Auto) Baso % (Auto) Neut # (Auto) Lymph # (Auto) [place] # (Auto) Eos # (Auto) Baso # (Auto) WBC Differential Differential Comment Sodium 139 Potassium 4.3 Chloride 106 Carbon Dioxide 21.8 Anion Gap 11 BUN 17 Creatinine 0.82 Estimated GFR Greater than 89 Random Glucose 96 Calcium 9.0 D Total Bilirubin 0.5 AST 57 H ALT 92 H Alkaline Phosphatase 92 Total Protein 7.3 D Albumin 3.3 L Lipase Urine Color Urine Clarity Urine pH Ur Specific [place] Urine Protein Urine Glucose (UA) Urine Ketones Urine Occult Blood Urine Nitrate Urine Bilirubin Urine Urobilinogen Ur Leukocyte Esterase Urine RBC Urine WBC Ur Squamous Epith Cells Amorphous Sediment Micro UA Comment Urine Culture Comments - Imaging Impressions Abdomen/Pelvis CT 02/09/18 19:36 CONCLUSION: 1. Internal and external drains on the right side surrounding a 2 cm calcified stone in the extrarenal pelvis. 2. There are 2 small nonobstructing stones lower pole collecting system left kidney. 3. No evidence of hydronephrosis on either side. Assessment and Plan - Assessment (1) Ureteropelvic junction (UPJ) obstruction Code(s): N13.5 - Crossing vessel and stricture of ureter without hydronephrosis Status: Acute - Plan 47 y/o male with history of htn, kidney stones, alcohol abuse, substance abuse was sent to the ED from a rehab facility for evaluation of his kidney stone. Patient has a known kidney stone and has been followed with Dr. Cruz and was instructed to come in and be evaluated by urology. Patient was admitted on 01/23 in which he had a percutaneous nephrostomy stent was placed, he also has a ureteral stent that was placed many years ago. He has been having hematuria, along with redness around his nephrostomy stent site. Urolithiasis Abdominal CT reviewed and shows Internal and external drains on the right side surrounding a 2 cm calcified stone in the extrarenal pelvis. -Urology consulted - Extracorporeal shockwave lithotripsy of a 2 cm right renal calculus done 02/10/[address] Griffith. -Pain management with Tylenol PO due to rehab status -NPO -IV Rocephin given for abnormal UA, culture not indicated Hypertension -Resume home medications lisinopril, monitor vitals DVT prophylaxis: SCD Discussed Condition With: Patient and RN
[2018-02-10] MEDS: Morphine Inj 4 MG/ML Vial IV.PUSH PRN (21:13)
[2018-02-11] MEDS: Morphine Inj 4 MG/ML Vial IV.PUSH PRN (02:52)
[2018-02-11] MEDS: Sod Chloride 0.9% Inj 1,000 ML IV.CONT SCH ×2 (05:23→15:43)
[2018-02-11] MEDS: Lidocaine 5% Patch T-DERMAL SCH (08:46)
[2018-02-11] MEDS: Lisinopril 20 MG Tablet PO SCH (08:48)
[2018-02-11] MEDS ORDERED: fentaNYL Citrate Inj 250 MCG/5 ML Ampul ONE (10:25)
[2018-02-11] MEDS ORDERED: Levofloxacin 500 mg Premix Inj 500 MG/100 ML PIGGYBACK IV.SIG ONE (10:53)
[2018-02-11] MEDS ORDERED: IOHEXOL 350 MG/ML ONE (11:00)
--- NOTE | 2018-02-11 11:26 | P.RAD ---
Post Procedure Progress Note - Pre Procedure Diagnosis (1) Renal calculus, right - Post Procedure Diagnosis (1) Renal calculus, right - Procedure Information Procedure Date: 02/11/18 Supervising Radiologist: Beltran Charles Jr, MD Estimated blood loss (mL): 0 Anesthesia: Conscious Sedation - Plan of Activity Patient to Unit: ROPU Patient Condition: Good See PACS Report for procedural detail/treatment. Drainage Procedure Fluoroscopy right Ureteral Stent Placement Serbian Tube Size: 8 PICC Line Length (cm): 24 Findings: Spoke to Dr Gong prior to procedure to confirm plans. Converted nephroureteral tube to internal stent. Removed nephrostomy. Plan: F/U with Dr Gong.
--- NOTE | 2018-02-11 13:43 | P.PN ---
Subjective Interval history: Patient is seen sitting up in bed watching TV and using his phone. He has been to interventional radiology where they placed a stent and removed his drain. Dressing is dry and intact with no drainage or surrounding erythema. He is still having some moderate pain but agrees to go through the medical record librarians teacher for his rehab facility for pain management. He tells me he has urinated without difficulty after his procedure. Denies any shortness of breath or chest pain. Denies any nausea vomiting or diarrhea. He would like to eat lunch as he is very hungry. Physical Exam Vital signs: Vital Signs 02/10/18 14:29 02/10/18 14:45 02/10/18 15:00 Temperature 97.5 F L 97.5 F L Pulse Rate 77 76 98 H Respiratory Rate 21 18 20 Blood Pressure 99/64 L 122/68 124/81 Pulse Oximetry 99 99 99 02/10/18 15:58 02/10/18 19:21 02/10/18 23:38 Temperature 97.7 F 98.5 F 98.7 F Pulse Rate 88 97 H 100 H Respiratory Rate 16 17 17 Blood Pressure 161/103 H 160/106 H 140/88 Pulse Oximetry 99 97 96 02/11/18 03:29 02/11/18 08:00 Temperature 98.5 F 97.6 F Pulse Rate 76 69 Respiratory Rate 17 16 Blood Pressure 153/99 H 149/105 H Pulse Oximetry 98 98 Intake & Output 02/10/18 02/11/18 02/11/18 18:59 06:59 18:59 Intake Total 1500 / 1500 2099 / 2100 100 / 100 Output Total 850 / 850 1000 / 1000 Balance 650 / 650 2099 / 2099 -900 / -900 Intake: IV 1000 / 1000 2099 / 2100 100 / 100 NS Inj 1,000 ML @ 100 mls/hr IV 1000 / 1000 2000 / 2000 .CONT .Q10H [facility] Rx#:[id number] Levaquin 500 mg Premix Inj 500 100 / 100 mg In 100 ml @ 0 mls/hr IV.SIG .STK-MED ONE Rx#:[id number] Rocephin Inj 1,000 MG In NS Inj 100 / 100 100 ML @ 200 mls/hr IV.SIG Q24H [facility] Rx#:[id number] Anesthesia Amount 500 / 500 Output: Urine 850 / 850 1000 / 1000 Narrative: GENERAL: Well-nourished, well-developed adult male -resting quietly and appears comfortable. SKIN: Warm and dry. HEAD: Atraumatic. Normocephalic. CARDIOVASCULAR: Regular rate and rhythm. RESPIRATORY: No accessory muscle use. Clear to auscultation. Breath sounds equal bilaterally. GASTROINTESTINAL: Abdomen soft, non-tender, non-distended. Positive bowel sounds. Dressing over surgical sight clean and dry -no indication of infection. Tenderness in back and right flank. MUSCULOSKELETAL: Extremities without clubbing, cyanosis, or edema. No obvious deformities. NEUROLOGICAL: Awake and alert. No obvious cranial nerve deficits. Motor grossly within normal limits. Normal speech. PSYCHIATRIC: Appropriate mood and affect; insight and judgment good. Results - Labs CBC & Chem 7: 02/09/18 20:15 02/10/18 04:45 Assessment and Plan - Assessment (1) Ureteropelvic junction (UPJ) obstruction Code(s): N13.5 - Crossing vessel and stricture of ureter without hydronephrosis Status: Acute - Plan 47 y/o male with history of htn, kidney stones, alcohol abuse, substance abuse was sent to the ED from a rehab facility for evaluation of his kidney stone. Patient has a known kidney stone and has been followed with Dr. Cruz and was instructed to come in and be evaluated by urology (Previous pt of Dr. Gong). Patient was admitted on 01/23 in which he had a percutaneous nephrostomy stent was placed, he also has a ureteral stent that was placed many years ago. He has been having hematuria, along with redness around his nephrostomy stent site. Urolithiasis Abdominal CT reviewed and shows Internal and external drains on the right side surrounding a 2 cm calcified stone in the extrarenal pelvis. -Urology consulted - Extracorporeal shockwave lithotripsy of a 2 cm right renal calculus done 02/10/[address] Griffith. Unable to resolve calculus; interventional radiology today for stent placement. -Caution with pain management due to rehab status -IV Rocephin given for abnormal UA, culture not indicated -Dr. Cruz requested patient be admitted to his service for continued care. Hypertension -Resume home medications lisinopril, monitor vitals DVT prophylaxis: SCD Discussed Condition With: Patient and RN
--- NOTE | 2018-02-11 14:08 | IR ---
EXAM DATE: 02/11/2018 11:54 AM EDT AGE/SEX: 47 years / Male INDICATIONS: Patient presents with hydronephrosis and in need of internalization. CLINICAL DATA: This is the patient's initial encounter. Patient reports that signs and symptoms have been present for 2 days and indicates a pain score of 9/10. I spoke with Dr. Gong prior to the pro cedure. The plan is to convert the nephroureteral catheter to a ureteral stent and remove the nephros tang tube. He will undergo episodes of lithotripsy to break up the stone. Should this fail repeat nep hrostomy tube placement may be needed. MEDICAL/SURGICAL HISTORY: Hypertension. Kidney stones Alcohol dependence Polysubstance abuse . Ankle surgery COMPARISON: No prior exams available for comparison. FLUORO TIME (min): 2.0 IMAGE SERIES: SEDATION TIME (min): 15 CONTRAST (cc): 15cc Omnipaque (iohexol) 350 MEDICATION(S): 5mg midazolam (Versed) IV 250mcg fentanyl (Sublimaze) IV DEVICE(S): 8 English ureteral stent 8x24cm . . PROCEDURE: 1. Percutaneous antegrade pyelogram. 2. Conversion of nephrostomy tube to nephroureteral stent. 3. Conscious sedation with continuous EKG and oximetry monitoring. The risks, benefits and alternatives to the procedure were explained and verbal and written consent w as obtained. The site was prepped in sterile fashion. Full sterile technique was used, including ca p, mask, sterile gloves and gown and a large sterile sheet. Hand hygiene and 2% chlorhexidine and/or betadine/alcohol prep was utilized per protocol for cutaneous antisepsis. The skin and subcutaneous tissues were infiltrated with local anesthetic solution. Antegrade pyelogram was performed through the existing nephroureteral to delineate the urinary tract. A guidewire was placed through the previous placed nephroureteral into the bladder and over this the prescribed nephroureteral stent was placed. It was appropriately positioned. The nephrostomy tube wa s removed. Conscious sedation was performed with the prescribed dosages and duration as above in the presence of an independent trained radiology nurse to assist in the monitoring of the patient. EKG and oximetry remained stable throughout the procedure. The patient tolerated the procedure well and there were no complications. The patient was sent to post anesthesia recovery in stable condition. CONCLUSION: 1. Uncomplicated nephroureteral stent placement as above. Electronically signed by: Beltran Charles MD 02/11/2018 2:07 PM EDT
[2018-02-11] MEDS ORDERED: Ketorolac Inj 30 MG/ML (IVP) Vial IV.PUSH ONE (15:00)
--- NOTE | 2018-02-11 15:37 | MB ---
cc: Guille Gongn Daniel DO DATE: 02/11/2018 HISTORY OF PRESENT ILLNESS: Mr. Samuel is a 47-year-old male who was admitted during the month of December with findings of approximately a 2 cm right UPJ stone, causing severe hydronephrosis. The patient underwent percutaneous nephrostomy tube and then was discharged. He presented again to the emergency room with pain and gross hematuria. On 02/10/2018, he underwent right extracorporeal lithotripsy by Dr. Griffith but due to the large size of the stone, there did not appear to be much fragmentation on fluoroscopy. Today, he went for internalization by special procedures to undergo right stent insertion, as his tube was causing him a lot of discomfort. He will require further treatment in the future and he is currently on patient assistance. He denies any fever or chills. Denies any problems with his bowel movements at the present time. PAST SURGICAL HISTORY: Noted for right percutaneous nephrostomy tube. Arthroplasty of the ankle and ureteral stent. PAST MEDICAL HISTORY: Medical problems include hypertension and renal calculi. SOCIAL HISTORY: Includes alcohol and heroin abuse. He is currently living in a rehabilitation facility. FAMILY HISTORY: No family history of prostate cancer is noted. REVIEW OF SYSTEMS: Notes right-sided flank pain with gross hematuria. Denies fever or chills gait disturbances, bleeding disorders, chest pain, and abdominal pain. Does have right-sided flank pain. The remaining review of systems were reviewed and were negative. PHYSICAL EXAMINATION: VITAL SIGNS: Today, temperature 97.6, heart rate 69, respiratory rate 16, blood pressure 149/105. GENERAL: He is a well-developed, well-nourished, 47-year-old male in no acute distress. HEENT: Head is normocephalic, atraumatic. Pupils equal, round, regular and reactive to light. Extraocular movements intact. NECK: Supple. HEART: Regular rate and rhythm. LUNGS: Clear. ABDOMEN: Soft, nontender, nondistended. EXTREMITIES: Show no evidence of cyanosis, clubbing, or edema. NEUROLOGIC: Cranial nerves 2-12 are intact. LABORATORY DATA: White count 11.5, hemoglobin 14.8, hematocrit 44.2, platelet count of 220. Sodium 139, potassium 4.3, chloride 106, CO2 of 21.8, BUN is 17, creatinine 0.82, glucose of 96. Urinalysis shows large leukocyte esterase, 86 red cells with 5 white cells. ASSESSMENT AND PLAN: A 47-year-old male with a 2 cm right renal calculus status post right-sided lithotripsy/extracorporeal shock wave lithotripsy with internalization of right percutaneous nephrostomy tube with a JJ stent. The patient will be discharged today and then will followup in the office for rescheduling 1 month of repeat right extracorporeal shock wave lithotripsy. The patient to go home on Cipro 500 mg p.o. b.i.d. Thank you for the consultation and allowing me to participate in the care of this patient. DO KENNETH Wilson/STACY , 02:41 PM , 03:36 PM
[2018-02-12] MEDS: Sod Chloride 0.9% Inj 1,000 ML IV.CONT SCH ×2 (04:23→12:07)
[2018-02-12] MEDS: Lisinopril 20 MG Tablet PO SCH (07:59)
[2018-02-12] MEDS: Lidocaine 5% Patch T-DERMAL SCH (08:01)
[2018-02-12] MEDS: Morphine Inj 4 MG/ML Vial IV.PUSH PRN ×3 (12:06→22:51)
--- NOTE | 2018-02-12 15:02 | P.PNGS ---
Subjective Patient reports: still having pain, pain is less, tolerating a regular diet, voiding w/o difficulty (The the patient states that his pain is better controlled than previously. He still has significant pain in the right lower abdomen as well as the right flank consistent with his ureteral stone and tube. It is still great enough to require opioid treatment.) Physical Exam Vital signs: Vital Signs 02/11/18 16:55 02/11/18 20:09 02/11/18 20:44 Temperature 97.7 F 97.9 F Pulse Rate 77 75 Respiratory Rate 20 18 Blood Pressure 131/93 H 142/93 H Pulse Oximetry 98 02/11/18 22:00 02/11/18 23:27 02/12/18 05:01 Temperature 97.8 F 97.7 F Pulse Rate 81 81 Respiratory Rate 17 18 18 Blood Pressure 145/99 H 164/104 H Pulse Oximetry 97 96 02/12/18 08:00 02/12/18 12:00 Temperature 97.3 F L 97.4 F L Pulse Rate 94 H Respiratory Rate 18 19 Blood Pressure 145/110 H 177/121 H Pulse Oximetry 100 95 Intake & Output 02/11/18 02/12/18 02/12/18 18:59 06:59 18:59 Intake Total 1100 / 1100 1720 / 1720 Output Total 1700 / 1700 Balance -600 / -600 1720 / 1720 Weight 68.03 kg Intake: IV 1100 / 1100 1000 / 1000 NS Inj 1,000 ML @ 100 mls/hr IV 1000 / 1000 1000 / 1000 .CONT .Q10H [facility] Rx#:[id number] Levaquin 500 mg Premix Inj 500 100 / 100 mg In 100 ml @ 0 mls/hr IV.SIG .STK-MED ONE Rx#:[id number] Oral 720 / 720 Output: Urine 1700 / 1700 Other: # Voids 6 Date of Last Bowel Movement 02/10/18 # Bowel Movements 0 - Constitutional no acute distress - Routine Abdominal Exam Present: soft Assessment and Plan - Assessment (1) Renal calculus, right Code(s): N20.0 - Calculus of kidney Status: Acute Plan: The patient is currently comfortable with intermittent oral as well as IV supplemental opioid treatment for his renal stones. He still has significant pain from the lithotripsy procedure performed the day before yesterday. As the patient is homeless at this point and engaged in an active inpatient rehabilitation where opioid treatment is not allowed, I plan to keep him in the hospital for another 48-72 hours to see if we can mitigate his pain enough to be sent out on NSAIDs.
[2018-02-12] MEDS: Acetaminophen 325 MG Tablet PO PRN (23:24)
[2018-02-13] MEDS: Morphine Inj 4 MG/ML Vial IV.PUSH PRN ×4 (03:08→22:12)
[2018-02-13] MEDS: Sod Chloride 0.9% Inj 1,000 ML IV.CONT SCH ×3 (06:29→17:56)
[2018-02-13] MEDS: Lisinopril 20 MG Tablet PO SCH (07:59)
[2018-02-13] MEDS: Lidocaine 5% Patch T-DERMAL SCH (08:00)
--- NOTE | 2018-02-13 16:38 | P.PNGS ---
Subjective Patient reports: no new complaints, still having pain Physical Exam Vital signs: Vital Signs 02/12/18 20:00 02/12/18 22:00 02/13/18 00:00 Temperature 98.4 F 98.9 F Pulse Rate 89 Respiratory Rate 18 17 Blood Pressure 170/111 H 158/96 H 148/94 H Pulse Oximetry 96 97 02/13/18 04:00 02/13/18 04:44 02/13/18 08:00 Temperature 97.5 F L 97.6 F Pulse Rate 82 Respiratory Rate 18 18 Blood Pressure 154/112 H 156/113 H 145/98 H Pulse Oximetry 96 96 02/13/18 08:11 02/13/18 12:00 Temperature 97.5 F L Pulse Rate 96 H Respiratory Rate 18 17 Blood Pressure 155/106 H Pulse Oximetry 97 Intake & Output 02/12/18 02/13/18 02/13/18 18:59 06:59 18:59 Intake Total 360 / 360 1000 / 1000 Balance 360 / 360 1000 / 1000 Weight 68.03 kg Intake: IV 1000 / 1000 NS Inj 1,000 ML @ 100 mls/hr IV 1000 / 1000 .CONT .Q10H [facility] Rx#:[id number] Oral 360 / 360 Other: # Voids 4 # Bowel Movements 0 - Routine Abdominal Exam Present: soft, normoactive bowel sounds Assessment and Plan - Assessment (1) Renal calculus, right Code(s): N20.0 - Calculus of kidney Status: Acute Plan: The patient is currently comfortable with intermittent oral as well as IV supplemental opioid treatment for his renal stones. He still has significant pain from the lithotripsy procedure performed the day before yesterday. As the patient is homeless at this point and engaged in an active inpatient rehabilitation where opioid treatment is not allowed, I plan to keep him in the hospital for another 48-72 hours to see if we can mitigate his pain enough to be sent out on NSAIDs. Plan is the same as above. Will keep him in the hospital as he is homeless.
[2018-02-14] MEDS: Sod Chloride 0.9% Inj 1,000 ML IV.CONT SCH ×2 (06:21→14:42)
[2018-02-14] MEDS: Lisinopril 20 MG Tablet PO SCH (08:58)
[2018-02-14] MEDS: Lidocaine 5% Patch T-DERMAL SCH (08:59)
[2018-02-15] MEDS: Sod Chloride 0.9% Inj 1,000 ML IV.CONT SCH ×2 (02:25→09:55)
[2018-02-15] MEDS: Lidocaine 5% Patch T-DERMAL SCH (08:49)
[2018-02-15] MEDS: Lisinopril 20 MG Tablet PO SCH (08:50)
--- NOTE | 2018-02-15 09:38 | P.DS ---
Date of admission: 02/09/18 23:21 Primary care physician: UNKNOWN Attending physician on discharge: Lamin Cruz Anticipated date of discharge: 02/15/18 Brief History from admission: 47 y/o male with history of htn, kidney stones, alcohol abuse, substance abuse was sent to the ED from a rehab facility for evaluation of his kidney stone. Patient has a known kidney stone and has been followed with Dr. Cruz and was instructed to come in and be evaluated by urology. Patient was admitted on 01/23 in which he had a percutaneous nephrostomy stent was placed, he also has a ureteral stent that was placed many years ago. He has been having hematuria, along with redness around his nephrostomy stent site. He is complaining of right abdominal pain with radiation to his back with associated chills, and nausea, worse with movement better with rest. It was during his December admission that a Large 2 cm stone at the UPJ was discovered. Denies any chest pain or sob. DS: Diagnosis - Discharge Diagnosis (1) Renal calculus, right Status: Acute Diagnosis: Principal DS: Summary Hospital Course: The patient unsuccessfuly underwent attempted lithotripsy of a right renal calculus. His internal/external stent was converted to an internal stent and he was kept in the hospital until arrangements could be finalized to get him back to residential alcohol rehab where opioid treatment is not allowed. He was discharged with a script for Toradol and agreed with the entire course of treatment. He will return to see Dr. Gong in 3-4 weeks to reschedule lithotripsy and the stent will remain until then. - Time Spent with Patient Total time spent providing and/or coordinating discharge services: Less than 30 minutes - Quality: VTE Deep Vein Thrombosis/Pulmonary Embolism Present on Admission: No Exam Vital signs: Vital Signs 02/14/18 12:00 02/14/18 16:00 02/14/18 20:00 Temperature 97.8 F 97.5 F L 98.2 F Pulse Rate 116 H 100 H 93 H Respiratory Rate 21 21 21 Blood Pressure 143/106 H 136/96 H 140/93 H Pulse Oximetry 96 97 95 02/15/18 00:00 02/15/18 02:40 02/15/18 04:00 Temperature 97.7 F Pulse Rate 95 H Respiratory Rate 18 Blood Pressure 143/97 H 140/80 Pulse Oximetry 96 Intake & Output 02/14/18 02/15/18 02/15/18 18:59 06:59 18:59 Intake Total 240 / 240 860 / 860 100 / 100 Output Total 250 / 250 Balance -10 / -10 860 / 860 100 / 100 Weight 72.5 kg Intake: IV 100 / 100 Rocephin Inj 1,000 MG In NS Inj 100 / 100 100 ML @ 200 mls/hr IV.SIG Q24H [facility] Rx#:[id number] Oral 240 / 240 860 / 860 Output: Urine 250 / 250 Other: # Voids 3 Date of Last Bowel Movement 02/13/18 - Constitutional no acute distress - Routine Respiratory Exam Present: CTA bilaterally - Routine Cardiovascular Exam Present: RRR - Routine Abdominal Exam Present: soft Results Procedures completed during hospitalization: Lithotripsy and conversion of I/E stent to an internal right ureteral stent. Completed studies during hospitalization: As noted above. Pending studies at discharge: None Labs on day of discharge: None ordered - Impressions ITS Impressions Abdomen/Pelvis CT 02/09/18 19:36 CONCLUSION: 1. Internal and external drains on the right side surrounding a 2 cm calcified stone in the extrarenal pelvis. 2. There are 2 small nonobstructing stones lower pole collecting system left kidney. 3. No evidence of hydronephrosis on either side. Ureteral Stent Placement 02/11/18 00:00 CONCLUSION: 1. Uncomplicated nephroureteral stent placement as above. Discharge Plan - Discharge Disposition Patient Disposition: 70 Transfer To Other Facility - Discharge Condition Condition: Stable - Discharge Order Discharge Orders: Discharge Order (Routine); Ordered 02/15/18 Ordered By: Lamin Cruz Urology Clear for Discharge (Routine); Ordered 02/10/18 Ordered By: Kenneth Griffith - Physicians Team Primary Care Provider: UNKNOWN, Attending Provider: Lamin Cruz Other Providers: Mk Gong DO
== END 2018-02-15 11:19 | disposition short-term general hospital (02) ==
LOC: NEDA 16:06 → NEPC 16:06 → NEPHCDU 02-10 00:30 → N06 02-11 18:18
PROVIDERS: ADMIT Surgery; ATTEND Surgery
PROC: ESWLBIL (2018-02-10 13:34)

== ENCOUNTER 2018-04-08 14:50 | Inpatient (IN) ==
[~2018-04-08 14:50] MED LIST changes: -LISI-515 PO; +Morphine Inj 4 MG/ML Vial IV.PUSH PRN; -POTA-163 PO; -PROT40TA PO
[2018-04-08] MEDS ORDERED: Ketorolac Inj 30 MG/ML (IVP) Vial IV.PUSH ONE (19:31)
[2018-04-08 20:01] LABS: Baso % (Auto) 0.6 % (0.0-2.0); Eos # (Auto) 0.4 th/mm3 (0.0-0.4); Eos % (Auto) 5.4 % (0.0-4.0); Hematocrit 44.7 % (39.0-51.0); Hemoglobin 15.1 gm/dL (13.0-17.0); Lymph # (Auto) 2.4 th/mm3 (1.0-4.8); Lymph % (Auto) 32.2 % (9.0-44.0); Mean Corpuscular HGB Conc 33.8 % (32.0-36.0); Mean Corpuscular Hemoglobin 30.8 pg (27.0-34.0); Mean Corpuscular Volume 91.1 fL (80.0-100.0); Mean Platelet Volume 8.9 fL (7.0-11.0); Mono # (Auto) 0.4 th/mm3 (0.0-0.9); Mono % (Auto) 5.5 % (0.0-8.0); Neut # (Auto) 4.1 th/mm3 (1.8-7.7); Neut % (Auto) 56.3 % (16.0-70.0); Platelet Count 183 th/mm3 (150-450); Red Blood Count 4.91 mil/mm3 (4.50-5.90); Red Cell Distribution Width 12.9 % (11.6-17.2); White Blood Count 7.3 th/mm3 (4.0-11.0)
[2018-04-08 20:06] LABS: Bacteria,Urine Occasional /hpf; Bilirubin,Urine Negative (Negative); Clarity,Urine Hazy (Clear); Color,Urine Yellow (Yellw/Straw); Glucose,Urine (UA) Negative (Negative); Leukocyte Esterase,Urine Large (Negative); Nitrite,Urine Negative (Negative); Specific Gravity,Urine 1.019 (1.002-1.035); Squamous Epithelial Cell,Urine <1 /hpf (0-5)
--- NOTE | 2018-04-08 20:15 | US ---
EXAM DATE: 04/08/2018 8:11 PM EDT AGE/SEX: 47 years / Male INDICATIONS: Increased lab values. CLINICAL DATA: This is the patient's initial encounter. Patient reports that signs and symptoms have been present for 3 months and indicates a pain score of 7/10. MEDICAL/SURGICAL HISTORY: Hypertension. Alcohol abuse. Heroin abuse. Renal calculi. . Nephrost du. Arthroplasty of ankle. Ureter stent. COMPARISON: [facility] – [place], CT ABDOMEN & PELVIS W/O CONTRAST, 02/09/2018. . MEASUREMENTS: Right Kidney:__12.1 x 5.3 x 5.2 cm Left Kidney:__13.9 x 4.3 x 6.6 cm FINDINGS: Right Kidney: There is a 16 mm stone in the right renal pelvis. Mild to moderate hydronephrosis. Left Kidney: Normal echotexture and cortical thickness. Scattered cysts up to 2.7 cm in size. No charles d appearing mass or hydronephrosis. Bladder: Within normal limits given the degree of distension. Other: None. CONCLUSION: 1. Right nephrolithiasis with mild to moderate hydronephrosis. 2. Cysts of the left kidney. No acute left renal abnormality demonstrated. Electronically signed by: Lorenzo Montoya MD 04/08/2018 8:14 PM EDT
[2018-04-08 20:16] LABS: Alanine Aminotransferase 49 U/L (12-78)
[2018-04-08 20:18] LABS: Alkaline Phosphatase 60 U/L (45-117); Total Protein 7.9 g/dL (6.4-8.2)
[2018-04-08 20:19] LABS: Albumin 4.1 g/dL (3.4-5.0); Anion Gap 7 meq/L (5-15); Aspartate Aminotransferase 32 U/L (15-37); Blood Urea Nitrogen 19 mg/dL (7-18); Calcium 8.9 mg/dL (8.5-10.1); Carbon Dioxide 29.8 meq/L (21.0-32.0); Chloride 104 meq/L (98-107); Glomerular Filtration Rate 72 mL/min (>89); Glucose,Random 120 mg/dL (74-106); Lipase 142 U/L (73-393); Potassium 3.9 meq/L (3.5-5.1); Sodium 141 meq/L (136-145)
[2018-04-08] MEDS: Sod Chloride 0.9% Inj 1,000 ML IV.SIG SCH (20:29)
[2018-04-08] MEDS ORDERED: Morphine Inj 4 MG/ML Vial IV.PUSH ONE (20:55)
--- NOTE | 2018-04-08 21:01 | ED ---
HPI General Chief complaint: Abdominal Pain Stated complaint: Poss Kidney Stone Time Seen by Provider: 04/08/18 19:20 Source: patient Mode of arrival: ambulatory Limitations: no limitations History of Present Illness HPI narrative: 47-year-old male with history of hypertension and known 16 mm stone in his right renal pelvis, presents emergency department for evaluation of persistent, worsening right flank pain radiating to his abdomen and testicle. Patient states he has had varsha hematuria today. He states his pain is getting worse it is a 9 out of 10. Patient has been previously evaluated by Dr. Gong with stent placement. The stone has not passed to this point. He has also undergone procedures to try to break the stone up prior to stent placement that were unsuccessful. Patient has subjective fever and chills intermittently. He has been nauseous without vomiting. He has no other symptoms to report. Related Data Home Medications Medication Instructions Recorded Confirmed ranitidine HCl 150 mg PO DAILY 04/08/18 04/08/18 Previous Rx's Medication Instructions Recorded clonidine HCl See Label Instructions .ROUTE 01/28/18 .COMPLEX #42 tab lisinopril 20 mg PO DAILY #30 tab 01/28/18 Allergies Allergy/AdvReac Type Severity Reaction Status Date / Time No Known Allergies Allergy Unverified 02/09/18 16:42 Review of Systems ROS: all other systems reviewed are negative [facility] Medical History Medical History Alcohol abuse (Acute) Heroin abuse (Acute) Hypertension (Acute) Renal calculi (Acute) Surgical History Surgical History H/O nephrostomy (Acute) History of failed arthroplasty of ankle (Acute) History of ureter stent (Acute) Family History Family History Father H/O ETOH abuse Mother HTN (hypertension) Social History Social History Substance History: No History of Abuse and Past History Second Hand Smoke Exposure: Yes Smoking Status: Former smoker Tobacco Type: Cigarettes How Often Do You Have a Drink Containing Alcohol: Monthly or less Recent Travel in [facility] within the Last 8 Weeks: No Recent Out of Country Travel within the Last 8 Weeks: No Immunization History Tetanus Immunization: >5 Years Hx Influenza Vaccine This Season: No Exam Narrative Exam Narrative: GENERAL: Well-nourished male patient, in no acute distress SKIN: Focused skin assessment warm/dry. HEAD: Atraumatic. Normocephalic. EYES: Pupils equal and round. No scleral icterus. No injection or drainage. ENT: No nasal bleeding or discharge. Mucous membranes pink and moist. NECK: Trachea midline. No JVD. CARDIOVASCULAR: Regular rate and rhythm. No murmur appreciated. RESPIRATORY: No accessory muscle use. Clear to auscultation. Breath sounds equal bilaterally. GASTROINTESTINAL: Abdomen soft, non-tender, nondistended. Hepatic and splenic margins not palpable. MUSCULOSKELETAL: No obvious deformities. No clubbing. No cyanosis. No edema. Right CVA tenderness. NEUROLOGICAL: Awake and alert. No obvious cranial nerve deficits. Motor grossly within normal limits. Normal speech. PSYCHIATRIC: Appropriate mood and affect; insight and judgment normal. Course Initial Documented Vital Signs Temperature 98.6 F 04/08/18 14:58 Pulse Rate 90 04/08/18 14:58 Respiratory Rate 17 04/08/18 14:58 Blood Pressure 149/99 H 04/08/18 14:58 Pulse Oximetry 97 04/08/18 14:58 Last Documented Vital Signs Temperature 98.6 F 04/08/18 14:58 Pulse Rate 90 04/08/18 14:58 Respiratory Rate 17 04/08/18 14:58 Blood Pressure 149/99 H 04/08/18 14:58 Pulse Oximetry 97 04/08/18 14:58 Medical Decision Making LIZZY Attestation LIZZY supervised visit: Yes [facility] Narrative Medical decision making narrative: 47-year-old male presents emergency department for evaluation of worsening right flank pain. Patient appears well. He does have right CVA tenderness. Lab work is reviewed and without acute concern. Ultrasound does show a 16 mm stone in the renal pelvic with mild to moderate hydronephrosis. Dr. Gong has been at the bedside and evaluated patient. He requests admission to medicine for surgical intervention tomorrow. He discussed the plan with the patient. Call has been placed to [facility] for admission. Medical Screen Exam Complete: Yes Emergency Medical Condition: Yes Differential Diagnosis Differential Diagnosis: Renal calculi versus UTI versus obstruction Lab Data Lab results reviewed: Yes I reviewed the patient's lab results. Result diagrams: 04/08/18 19:50 04/08/18 19:50 Lab Results 04/08/18 04/08/18 04/08/18 Range/Units 18:53 19:50 19:50 WBC 7.3 (4.0-11.0) th/mm3 RBC 4.91 (4.50-5.90) mil/mm3 Hgb 15.1 (13.0-17.0) gm/dL Hct 44.7 (39.0-51.0) % MCV 91.1 (80.0-100.0) fL MCH 30.8 (27.0-34.0) pg MCHC 33.8 (32.0-36.0) % RDW 12.9 (11.6-17.2) % Plt Count 183 (150-450) th/mm3 MPV 8.9 (7.0-11.0) fL Neut % (Auto) 56.3 (16.0-70.0) % Lymph % (Auto) 32.2 (9.0-44.0) % [place] % (Auto) 5.5 (0.0-8.0) % Eos % (Auto) 5.4 H (0.0-4.0) % Baso % (Auto) 0.6 (0.0-2.0) % Neut # (Auto) 4.1 (1.8-7.7) th/mm3 Lymph # (Auto) 2.4 (1.0-4.8) th/mm3 [place] # (Auto) 0.4 (0.0-0.9) th/mm3 Eos # (Auto) 0.4 (0.0-0.4) th/mm3 Baso # (Auto) 0.0 (0.0-0.2) th/mm3 WBC Differential . Differential Comment Auto diff final Sodium 141 (136-145) meq/L Potassium 3.9 (3.5-5.1) meq/L Chloride 104 (98-107) meq/L Carbon Dioxide 29.8 (21.0-32.0) meq/L Anion Gap 7 (5-15) meq/L BUN 19 H (7-18) mg/dL Creatinine 1.09 (0.60-1.30) mg/dL Estimated GFR 72 L (>89) mL/min Random Glucose 120 H (74-106) mg/dL Calcium 8.9 (8.5-10.1) mg/dL Total Bilirubin 0.4 (0.2-1.0) mg/dL AST 32 (15-37) U/L ALT 49 (12-78) U/L Alkaline Phosphatase 60 (45-117) U/L Total Protein 7.9 (6.4-8.2) g/dL Albumin 4.1 (3.4-5.0) g/dL Lipase 142 (73-393) U/L Urine Color Yellow (Yellw/Straw) Urine Clarity Hazy H (Clear) Urine pH 7.0 (5.0-8.5) Ur Specific [place] 1.019 (1.002-1.035) Urine Protein 100 H (Neg-Trace) mg/dL Urine Glucose (UA) Negative (Negative) mg/dL Urine Ketones Negative (Negative) mg/dL Urine Occult Blood Large H (Negative) Urine Nitrate Negative (Negative) Urine Bilirubin Negative (Negative) Urine Urobilinogen 2.0 H (Less than 2) mg/dL Ur Leukocyte Esterase Large H (Negative) Urine RBC (0-3) /hpf Urine WBC 35 H (0-5) /hpf Ur Squamous Epith Cells <1 (0-5) /hpf Urine Bacteria Occasional H (None) /hpf Micro UA Comment Culture indicated Ur Microscopic Review Not Reportable Urine Culture Comments Culture indicated Imaging Data Radiologist's impression: Abdomen/Bladder Ultrasound 04/08/18 19:30 CONCLUSION: 1. Right nephrolithiasis with mild to moderate hydronephrosis. 2. Cysts of the left kidney. No acute left renal abnormality demonstrated. Discharge Plan Discharge Disposition Patient Disposition: 30 Still Patient Discharge Condition Condition: Stable Discharge Details Diagnosis: Renal calculus, right, Hydronephrosis Physicians Team ED Provider: Trevon Greene ED Midlevel Provider: Berenice Driscoll Primary Care Provider: UNKNOWN, Rxs /Orders / Referrals /Forms Prescriptions: No Action clonidine HCl 0.1 mg Tablet See Label Instructions .ROUTE .COMPLEX Qty: 42 RF: 0 lisinopril 20 mg Tablet 20 mg PO DAILY Qty: 30 RF: 0 ranitidine HCl 150 mg Capsule 150 mg PO DAILY RF: 0 Status ED Status: Pending Admission
[2018-04-08] MEDS ORDERED: Acetaminophen 325 MG Tablet PO PRN (21:49)
--- NOTE | 2018-04-08 22:09 | P.HP ---
History of Present Illness Service: [facility] Primary Care Physician: UNKNOWN History of Present Illness: 47-year-old male with a past medical history significant for hypertension and nephrolithiasis presents to the emergency department for evaluation of pelvic pain and CVA tenderness. The patient has a known kidney stone in the right kidney and is status post lithotripsy and stent placement. Despite this 16 mm stone in the right renal pelvis with mild to moderate hydronephrosis. Positive hematuria. He reports subjective fever earlier today. No chest pain or shortness of breath. No nausea/vomiting/diarrhea. No lateralizing signs/ symptoms. Inpatient Certification: I certify that the inpatient services were ordered in accordance with Medicare regulations governing the order. This includes certification that hospital inpatient services are reasonable and necessary and in the case of services not specified as inpatient-only under 42 CFR 419.22(n), that they are appropriately provided as inpatient services in accordance to with the 2-midnight benchmark under 43 CFR 412.3(e) Estimated Total Length of Stay (Days): 2 Plans for Post Hospital Care: Home Review of Systems All other systems reviewed negative except as stated in HPI [facility] - History History Provided By: Patient - Medical History Medical History: Medical History (Last Reviewed 04/08/18 @ 22:04 by Joana Burciaga MD) Alcohol abuse Heroin abuse Hypertension Renal calculi - Surgical History Surgical History: Surgical History (Last Reviewed 04/08/18 @ 22:04 by Joana Burciaga MD) H/O nephrostomy History of failed arthroplasty of ankle History of ureter stent - Family History Family History: Family History (Last Reviewed 04/08/18 @ 22:04 by Joana Burciaga MD) Father H/O ETOH abuse Mother HTN (hypertension) - Tobacco History Second Hand Smoke Exposure: Yes Smoking Status: Former smoker Tobacco Type: Cigarettes - Alcohol History How Often Do You Have a Drink Containing Alcohol: Monthly or less - Substance Use History Substance History: No History of Abuse, Past History - Travel History Recent Travel in the [place] Within the Last 8 Weeks: No Recent Travel Out of the Country Within the Last 8 Weeks: No - Immunization History Tetanus Immunization: >5 Years Hx Influenza Vaccine This Season: No Medications and Allergies Active Medications: Active Medications Acetaminophen (Tylenol) 650 mg PO Q4H PRN PRN Reason: Temp > 100.4 Sodium Chloride (Ns Inj) 1,000 mls @ 0 mls/hr IV.SIG BOLUS ABRAHAN Last Admin: 04/08/18 20:29 Dose: 999 mls/hr Ceftriaxone Sodium 1,000 mg/ (Sodium Chloride) 100 mls @ 200 mls/hr IV.SIG Q24H ABRAHAN Sodium Chloride (Ns Inj) 1,000 mls @ 100 mls/hr IV.CONT .Q10H ABRAHAN Morphine Sulfate (Morphine Inj) 2 mg IV.PUSH Q3H PRN PRN Reason: pain 1 to 10 Ondansetron HCl (Zofran Inj) 4 mg IV.PUSH Q6H PRN PRN Reason: NAUSEA OR VOMITING Sodium Chloride (Ns Flush) 2 ml IV.FLUSH PRN PRN PRN Reason: FLUSH AFTER USING IV ACCESS Allergies Allergy/AdvReac Type Severity Reaction Status Date / Time No Known Allergies Allergy Unverified 02/09/18 16:42 Home Medications Medication Instructions Recorded Confirmed Type ranitidine HCl 150 mg PO DAILY 04/08/18 04/08/18 History Exam Vital signs: Vital Signs 04/08/18 14:58 04/08/18 21:09 Temperature 98.6 F Pulse Rate 90 Respiratory Rate 17 17 Blood Pressure 149/99 H Pulse Oximetry 97 Intake & Output 04/08/18 04/08/18 04/09/18 06:59 18:59 06:59 Weight 83.915 kg Narrative: Gen.: No acute distress Head: Normocephalic. Atraumatic. EENT: Pupils equal round and reactive to light. Nose without drainage. Airway intact. Throat without injection. Cardiovascular: Regular rate and rhythm. No murmurs, rubs or gallops. Respiratory: Lungs clear to auscultation bilaterally. No wheezes or rhonchi. Abdomen: Soft, nontender, nondistended. No peritoneal signs. : Right CVA tenderness. Musculoskeletal: No gross deformities. No edema. Skin: No obvious rashes or erythema. Neuro: Sensory and motor grossly intact. Cranial nerves II through XII grossly intact. Results - Labs CBC & Chem 7: 04/08/18 19:50 04/08/18 19:50 Labs: Laboratory Results - last 24 hr 04/08/18 04/08/18 04/08/18 18:53 19:50 19:50 WBC 7.3 RBC 4.91 Hgb 15.1 Hct 44.7 MCV 91.1 MCH 30.8 MCHC 33.8 RDW 12.9 Plt Count 183 MPV 8.9 Neut % (Auto) 56.3 Lymph % (Auto) 32.2 [place] % (Auto) 5.5 Eos % (Auto) 5.4 H Baso % (Auto) 0.6 Neut # (Auto) 4.1 Lymph # (Auto) 2.4 [place] # (Auto) 0.4 Eos # (Auto) 0.4 Baso # (Auto) 0.0 WBC Differential . Differential Comment Auto diff final Sodium 141 Potassium 3.9 Chloride 104 Carbon Dioxide 29.8 Anion Gap 7 BUN 19 H Creatinine 1.09 Estimated GFR 72 L Random Glucose 120 H Calcium 8.9 Total Bilirubin 0.4 AST 32 ALT 49 Alkaline Phosphatase 60 Total Protein 7.9 Albumin 4.1 Lipase 142 Urine Color Yellow Urine Clarity Hazy H Urine pH 7.0 Ur Specific [place] 1.019 Urine Protein 100 H Urine Glucose (UA) Negative Urine Ketones Negative Urine Occult Blood Large H Urine Nitrate Negative Urine Bilirubin Negative Urine Urobilinogen 2.0 H Ur Leukocyte Esterase Large H Urine RBC Urine WBC 35 H Ur Squamous Epith Cells <1 Urine Bacteria Occasional H Micro UA Comment Culture indicated Ur Microscopic Review Not Reportable Urine Culture Comments Culture indicated - Imaging Impressions Abdomen/Bladder Ultrasound 04/08/18 19:30 CONCLUSION: 1. Right nephrolithiasis with mild to moderate hydronephrosis. 2. Cysts of the left kidney. No acute left renal abnormality demonstrated. Caprini VTE Risk Assessment Caprini VTE Risk Assessment: No/Low Risk (score <= 1) Caprini Risk Assessment Model: Point Value = 1 Point Value = 2 Point Value = 3 Point Value = 5 Age 41-60 Minor surgery BMI > 25 kg/m2 Swollen legs Varicose veins or History of unexplained or recurrent spontaneous Oral contraceptives or hormone replacement Sepsis (< 1 month) Serious lung disease, including pneumonia (< 1 month) Abnormal pulmonary function Acute myocardial infarction Congestive heart failure (< 1 month) History of inflammatory bowel disease Medical patient at bed rest Age 61-74 Arthroscopic surgery Major open surgery (> 45 min) Laparoscopic surgery (> 45 min) Malignancy Confined to bed (> 72 hours) Immobilizing plaster cast Central venous access Age >= 75 History of VTE Family history of VTE Factor V Leiden Prothrombin [id number] Lupus anticoagulant Anticardiolipin antibodies Elevated serum homocysteine Heparin-induced thrombocytopenia Other congenital or acquired thrombophilia Stroke (< 1 month) Elective arthroplasty Hip, pelvis, or leg fracture Acute spinal cord injury (< 1 month) Prophylaxis Regimen: Total Risk Factor Score Risk Level Prophylaxis Regimen 0-1 Low Early ambulation 2 Moderate Order ONE of the following: *Sequential Compression Device (SCD) *Heparin 5000 units SQ BID 3-4 Higher Order ONE of the following medications: *Heparin 5000 units SQ TID *Enoxaparin/Lovenox 40 mg SQ daily (WT < 150 kg, CrCl > 30 mL/min) *Enoxaparin/Lovenox 30 mg SQ daily (WT < 150 kg, CrCl > 10-29 mL/min) *Enoxaparin/Lovenox 30 mg SQ BID (WT < 150 kg, CrCl > 30 mL/min) AND/OR *Sequential Compression Device (SCD) 5 or more Highest Order ONE of the following medications: *Heparin 5000 units SQ TID (Preferred with Epidurals) *Enoxaparin/Lovenox 40 mg SQ daily (WT < 150 kg, CrCl > 30 mL/min) *Enoxaparin/Lovenox 30 mg SQ daily (WT < 150 kg, CrCl > 10-29 mL/min) *Enoxaparin/Lovenox 30 mg SQ BID (WT < 150 kg, CrCl > 30 mL/min) AND *Sequential Compression Device (SCD) Assessment and Plan - Plan Assessment/plan: 1. Nephrolithiasis with hydronephrosis Creatinine 1.09, monitor renal function Urology consulted, appreciate assistance Pain control 2. Urinary tract infection UA consistent with UTI Urine culture pending Rocephin FEN N.p.o. Electrolytes: Urine replete as needed NS at 100 cc/hour
[2018-04-08] MEDS: Sod Chloride 0.9% Inj 1,000 ML IV.CONT SCH (22:20)
[2018-04-09] MEDS: Morphine Inj 4 MG/ML Vial IV.PUSH PRN ×7 (00:16→23:24)
[2018-04-09 07:36] LABS: Anion Gap 9 meq/L (5-15); Blood Urea Nitrogen 15 mg/dL (7-18); Calcium 7.6 mg/dL (8.5-10.1); Carbon Dioxide 23.2 meq/L (21.0-32.0); Chloride 109 meq/L (98-107); Glomerular Filtration Rate Greater Than 89 mL/min (>89); Glucose,Random 93 mg/dL (74-106); Potassium 4.2 meq/L (3.5-5.1); Sodium 141 meq/L (136-145)
--- NOTE | 2018-04-09 09:33 | P.PNIM ---
Subjective Interval history: Patient states that he is ready for surgical intervention today. Still with some pain over the right back and mid lower pelvic area. Physical Exam Vital signs: Vital Signs 04/08/18 14:58 04/08/18 21:09 04/08/18 21:22 Temperature 98.6 F Pulse Rate 90 Respiratory Rate 17 17 17 Blood Pressure 149/99 H Pulse Oximetry 97 04/09/18 00:00 04/09/18 04:00 04/09/18 08:00 Temperature 97.5 F L 97.9 F 97.9 F Pulse Rate 85 92 H 75 Respiratory Rate 18 18 18 Blood Pressure 164/109 H 124/82 141/84 H Pulse Oximetry 94 L 95 96 Intake & Output 04/08/18 04/09/18 04/09/18 18:59 06:59 18:59 Intake Total 1100 / 1100 Output Total 700 / 700 Balance 400 / 400 Weight 83.915 kg 88 kg Intake: IV 1100 / 1100 NS Inj 1,000 ML @ Wide Open IV. 1000 / 1000 SIG BOLUS ABRAHAN Rx#:[id number] Rocephin Inj 1,000 MG In NS Inj 100 / 100 100 ML @ 200 mls/hr IV.SIG Q24H ABRAHAN Rx#:[id number] Output: Urine 700 / 700 Narrative: GENERAL: This is a well-nourished, well-developed patient, in no apparent distress. CARDIOVASCULAR: Regular rate and rhythm RESPIRATORY: Clear to auscultation. Breath sounds equal bilaterally. No wheezes , rales, or rhonchi. GASTROINTESTINAL: Abdomen soft, mid lower abdomen tenderness with no rebound guarding, mild right CVA tenderness, nondistended. Normal active bowel sounds MUSCULOSKELETAL: Extremities without clubbing, cyanosis, or edema. NEURO: Alert & Oriented x4 to person, place, time, situation. Moves all ext x4 Results - Labs CBC & Chem 7: 04/08/18 19:50 04/09/18 06:22 Laboratory Results - last 24 hr 04/08/18 04/08/18 04/08/18 18:53 19:50 19:50 WBC 7.3 RBC 4.91 Hgb 15.1 Hct 44.7 MCV 91.1 MCH 30.8 MCHC 33.8 RDW 12.9 Plt Count 183 MPV 8.9 Neut % (Auto) 56.3 Lymph % (Auto) 32.2 [place] % (Auto) 5.5 Eos % (Auto) 5.4 H Baso % (Auto) 0.6 Neut # (Auto) 4.1 Lymph # (Auto) 2.4 [place] # (Auto) 0.4 Eos # (Auto) 0.4 Baso # (Auto) 0.0 WBC Differential . Differential Comment Auto diff final Sodium 141 Potassium 3.9 Chloride 104 Carbon Dioxide 29.8 Anion Gap 7 BUN 19 H Creatinine 1.09 Estimated GFR 72 L Random Glucose 120 H Calcium 8.9 Total Bilirubin 0.4 AST 32 ALT 49 Alkaline Phosphatase 60 Total Protein 7.9 Albumin 4.1 Lipase 142 Urine Color Yellow Urine Clarity Hazy H Urine pH 7.0 Ur Specific [place] 1.019 Urine Protein 100 H Urine Glucose (UA) Negative Urine Ketones Negative Urine Occult Blood Large H Urine Nitrate Negative Urine Bilirubin Negative Urine Urobilinogen 2.0 H Ur Leukocyte Esterase Large H Urine RBC Urine WBC 35 H Ur Squamous Epith Cells <1 Urine Bacteria Occasional H Micro UA Comment Culture indicated Ur Microscopic Review Not Reportable Urine Culture Comments Culture indicated 04/09/18 06:22 WBC RBC Hgb Hct MCV MCH MCHC RDW Plt Count MPV Neut % (Auto) Lymph % (Auto) [place] % (Auto) Eos % (Auto) Baso % (Auto) Neut # (Auto) Lymph # (Auto) [place] # (Auto) Eos # (Auto) Baso # (Auto) WBC Differential Differential Comment Sodium 141 Potassium 4.2 Chloride 109 H Carbon Dioxide 23.2 Anion Gap 9 BUN 15 Creatinine 0.80 Estimated GFR Greater than 89 Random Glucose 93 Calcium 7.6 L D Total Bilirubin AST ALT Alkaline Phosphatase Total Protein Albumin Lipase Urine Color Urine Clarity Urine pH Ur Specific [place] Urine Protein Urine Glucose (UA) Urine Ketones Urine Occult Blood Urine Nitrate Urine Bilirubin Urine Urobilinogen Ur Leukocyte Esterase Urine RBC Urine WBC Ur Squamous Epith Cells Urine Bacteria Micro UA Comment Ur Microscopic Review Urine Culture Comments - Imaging Impressions Abdomen/Bladder Ultrasound 04/08/18 19:30 CONCLUSION: 1. Right nephrolithiasis with mild to moderate hydronephrosis. 2. Cysts of the left kidney. No acute left renal abnormality demonstrated. Assessment and Plan - Plan 1. Symptomatic right nephrolithiasis with with hydronephrosis For surgical intervention with urology today, continue IV fluid hydration IV pain medication, morphine 2. Abnormal urinalysis to rule out urinary tract infection Urine culture pending Continue Rocephin 3. DVT prophylaxisbilateral SCDs, anticoagulation contraindicated due to pending surgical procedure. Discharge Planning: Home when cleared by urology.
[2018-04-09] MEDS: Sod Chloride 0.9% Inj 1,000 ML IV.CONT SCH (10:19)
[2018-04-09 10:38] LABS: Baso % (Auto) 0.5 % (0.0-2.0); Eos # (Auto) 0.5 th/mm3 (0.0-0.4); Eos % (Auto) 7.1 % (0.0-4.0); Hematocrit 41.5 % (39.0-51.0); Hemoglobin 14.2 gm/dL (13.0-17.0); Lymph # (Auto) 1.9 th/mm3 (1.0-4.8); Lymph % (Auto) 27.8 % (9.0-44.0); Mean Corpuscular HGB Conc 34.2 % (32.0-36.0); Mean Corpuscular Hemoglobin 31.1 pg (27.0-34.0); Mean Platelet Volume 8.7 fL (7.0-11.0); Mono # (Auto) 0.6 th/mm3 (0.0-0.9); Mono % (Auto) 8.8 % (0.0-8.0); Neut # (Auto) 3.9 th/mm3 (1.8-7.7); Neut % (Auto) 55.8 % (16.0-70.0); Platelet Count 150 th/mm3 (150-450); Red Blood Count 4.56 mil/mm3 (4.50-5.90); Red Cell Distribution Width 12.9 % (11.6-17.2)
[2018-04-09 11:00] LABS: D-Dimer 0.26 mg/L FEU (0.00-0.50); Fibrinogen 206 mg/dL (227-377); INR 1.1 Ratio; Prothrombin Time 11.3 sec (9.8-11.6)
[2018-04-09] MEDS ORDERED: fentaNYL Citrate Inj 250 MCG/5 ML Ampul ONE (12:28)
--- NOTE | 2018-04-09 13:30 | P.RAD ---
Post Procedure Progress Note - Pre Procedure Diagnosis (1) Ureteropelvic junction (UPJ) obstruction (2) Renal calculus, right - Post Procedure Diagnosis (1) Ureteropelvic junction (UPJ) obstruction (2) Renal calculus, right - Procedure Information Procedure Date: 04/09/18 Supervising Radiologist: Beltran Charles Jr, MD Proceduralist/Assist: Hema Anesthesia: Conscious Sedation - Plan of Activity Patient to Unit: ROPU See PACS Report for procedural detail/treatment. Drainage Procedure Fluoroscopy right Ureteral Stent Placement Brazilian Tube Size: 4 Findings: UPJ stones with obstruction. Has current JJ stent. Placed a 4F catheter via a lower pole approach into the urinary bladder. Will accept 0.[address] with silk. Plan: To OR
[2018-04-09] MEDS ORDERED: Iohexol 350 MG/ML 50 ML Vial (for Rad Diag) IVCONTRAST ONE (13:42)
[2018-04-09] MEDS ORDERED: Chlorhexidine Gluconate 2% 1 Pack (2 Cloths) TOPICAL ONE (14:17)
[2018-04-09] MEDS ORDERED: Metoprolol Tartrate 25 MG Tablet PO ONE (14:17)
--- NOTE | 2018-04-09 14:36 | IR ---
EXAM DATE: 04/09/2018 2:00 PM EDT AGE/SEX: 47 years / Male INDICATIONS: Patient with history of hydronephrosis presents with renal calculi in need of Nephroure teral stent placement prior to percutaneous lithotripsy. CLINICAL DATA: This is the patient's initial encounter. Patient reports that signs and symptoms have been present for 1 day and indicates a pain score of 6/10. MEDICAL/SURGICAL HISTORY: Hypertension. Kidney stones, Alcohol dependence, Polysubstance abuse . Ankle surgery, Nephrostomy, Ureter stent. COMPARISON: C, NEPHROURETERAL CATHETER, RIGHT, 01/17/2018. . FLUORO TIME (min): 8.0 IMAGE SERIES: 12 SEDATION TIME (min): 45 CONTRAST (cc): 15 Omnipaque (iohexol) 350 MEDICATION(S): 7 mg midazolam (Versed) IV 250 mcg fentanyl (Sublimaze) IV DEVICE(S): 4 Citizen Of [place] Straight Savage Cath . . PROCEDURE : 1. Ultrasound-guided puncture of the kidney. 2. Antegrade percutaneous pyelogram. 3. Percutaneous nephroureteral stent placement. 4. Conscious sedation with continuous EKG and oximetry monitoring. The risks, benefits and alternatives to the procedure were explained and verbal and written consent w as obtained. The site was prepped in sterile fashion. Full sterile technique was used, including ca p, mask, sterile gloves and gown and a large sterile sheet. Hand hygiene and 2% chlorhexidine and/or betadine/alcohol prep was utilized per protocol for cutaneous antisepsis. Sterile gel and sterile p robe cover were utilized for ultrasound guidance. The skin and subcutaneous tissues were infiltrated with local anesthetic solution. With ultrasound and fluoroscopic guidance the right kidney lower pole was punctured and a percutaneou s antegrade pyelogram was performed demonstrating a dilated collecting system. Multiple filling defec ts are seen involving the renal pelvis consistent with stones. There is a double-J stent which is in good position. An angled Glidewire was utilized to gain access to the urinary bladder. A 4 Citizen Of [place] gli de catheter was passed over the wire with its tip positioned within the urinary bladder. This was sut ured in place using silk suture. Injection of positive contrast demonstrates good position of the cat heter. Conscious sedation was performed with the prescribed dosages and duration as above in the presence of an independent trained radiology nurse to assist in the monitoring of the patient. EKG and oximetry remained stable throughout the procedure. The patient tolerated the procedure well and there were n o complications. The patient was sent to post anesthesia recovery in stable condition. CONCLUSION: 1. Uncomplicated right nephroureteral stent placement as above. Multiple UPJ stones. Electronically signed by: Beltran Charles MD 04/09/2018 2:34 PM EDT
[2018-04-09] MEDS ORDERED: Sodium Chlor 0.9% Inj 500 ML IV.SIG SCH (15:00)
[2018-04-09] MEDS ORDERED: Glycopyrrolate Inj 1 MG/5 ML Syringe IV.PUSH ONE (16:30)
[2018-04-09] MEDS ORDERED: Lidocaine PF 1% Inj 5 ML Syringe INFILTRATN ONE (16:30)
[2018-04-09] MEDS ORDERED: Phenylephrine/NS 1000 MCG/10ML Syringe IV.PUSH ONE (16:30)
[2018-04-09] MEDS: Gentamicin/NS 80 mg Premix 100 ML IV.SIG SCH (17:00)
--- NOTE | 2018-04-09 18:24 | P.OP ---
- Preoperative Diagnosis (1) Renal calculus, right - Postoperative Diagnosis (1) Renal calculus, right Date of procedure: 04/09/18 Procedure: Right percutaneous nephrolithotomy with antegrade right ureteroscopy with stone extraction Anesthesia: BRYNN Surgeon: Mk Gong DO Estimated blood loss (mL): 100 Operation and Findings: 47-year-old male with history of a large right UPJ calculus causing obstruction. Patient underwent right extrapleural shockwave lithotripsy without effective treatment. Decision made to bring the patient to the operating room to undergo right per cutaneous nephrolithotomy. Risk and benefits were discussed preoperatively patient was willing to proceed. Early in a day special procedures placed a percutaneous right-sided nephrostomy tube. Patient was brought to the operating room and identified by myself as Abran Jimmie. He he remained on the stretcher in the supine position and then underwent general endotracheal tube intubation. He was then placed on the table in the prone position and all areas were appropriately padded. He was prepped and draped in usual sterile fashion received preprocedure antibiotics. A 0.35 sensor wire was passed through the nephrostomy tube catheter and down into the bladder under fluoroscopy. The Sylvester catheter was then removed. Using the NephroMax balloon dilator, this was advanced near the area of the UPJ at the site of the stone. Balloon dilatation occurred with 12 mmHg filled into the balloon for a total of 3 minutes. The NephroMax sheath was then passed over the balloon up into the area of the stone under fluoroscopy. The balloon dilatation system was then removed leaving the wire in place. The nephroscope was then passed through the sheath on to the site of the stone and using the cyber wand the stone was fragmented up freely. The stone fragments were then retrieved with the grasping forceps. Once all the stone was removed from the area of the UPJ, the flexible ureteroscope was then passed down the UPJ down the ureter and a few small stone fragments were removed with the night. The right double-J stent was in good position and this was left in place. An antegrade nephrostogram was then performed demonstrating good filling of the collecting system without any filling defects as well as the ureter. A 16 Tunisian kiana tip catheter was then slid over the wire and left in good position. The sensor wire was then removed. 3 cc of water were placed into the balloon of the kiana tip catheter and it was in good position. This was anchored with a 2-0 silk suture and dressings were applied. The patient was then placed in the prone position on the stretcher and extubated and transferred recovery in stable condition. He tolerated the procedure well.
[2018-04-09] MEDS ORDERED: *Ondansetron Inj 4 MG/2 ML Vial PERIprocedural Use ONLY ONE (18:58)
[2018-04-09] MEDS ORDERED: *morphine SULFATE 4 MG/ML PERIprocedure ONLY ONE (18:58)
--- NOTE | 2018-04-09 18:59 | XR ---
EXAM DATE: 04/09/2018 6:53 PM EDT AGE/SEX: 47 years / Male INDICATIONS: Percutaneous nephro lithotripsy. CLINICAL DATA: This is the patient's initial encounter. Patient reports that signs and symptoms have been present for 1 day and indicates a pain score of Nonresponsive. MEDICAL/SURGICAL HISTORY: Hypertension. Renal calculi. Nephrostomy tube, right. COMPARISON: . FINDINGS: A single view is submitted. Percutaneously placed nephroureterostomy tube and wire demonstrated. Ther e is partial opacification of the collecting system. A subcentimeter filling defect is seen at the ur eteropelvic junction. CONCLUSION: Right nephroureterostomy tube. Small stone at the UPJ. Electronically signed by: Lorenzo Montoya MD 04/09/2018 6:58 PM EDT
[2018-04-09 19:20] LABS: Hematocrit 41.8 % (39.0-51.0); Hemoglobin 14.2 gm/dL (13.0-17.0); Mean Corpuscular HGB Conc 33.9 % (32.0-36.0); Mean Corpuscular Hemoglobin 30.6 pg (27.0-34.0); Mean Corpuscular Volume 90.1 fL (80.0-100.0); Platelet Count 145 th/mm3 (150-450); Red Blood Count 4.64 mil/mm3 (4.50-5.90); Red Cell Distribution Width 12.4 % (11.6-17.2); White Blood Count 7.6 th/mm3 (4.0-11.0)
[2018-04-09] MEDS ORDERED: fentaNYL Citrate Inj 100 MCG/2 ML Ampul ONE (19:22)
[2018-04-09] MEDS ORDERED: Morphine Inj 4 MG/ML Vial ONE (19:22)
[2018-04-09 19:47] LABS: Calcium 7.6 mg/dL (8.5-10.1); Carbon Dioxide 23.7 meq/L (21.0-32.0); Potassium 4.3 meq/L (3.5-5.1)
[2018-04-09] MEDS ORDERED: oxyCODONE/Acetaminophen 10/325 Tablet PO ONE (21:35)
[2018-04-09] MEDS: Famotidine 20 MG Tablet PO SCH (23:23)
[2018-04-10] MEDS ORDERED: Sugammadex Inj 200 MG/2 ML Vial IV.PUSH ONE (01:37)
[2018-04-10] MEDS: Morphine Inj 4 MG/ML Vial IV.PUSH PRN ×6 (02:20→23:27)
[2018-04-10] MEDS: Gentamicin/NS 80 mg Premix 100 ML IV.SIG SCH ×4 (02:24→17:57)
[2018-04-10] MEDS: Sod Chloride 0.9% Inj 1,000 ML IV.CONT SCH ×5 (02:33→23:05)
[2018-04-10] MEDS: Lisinopril 20 MG Tablet PO SCH ×2 (07:19→08:55)
[2018-04-10] MEDS: Famotidine 20 MG Tablet PO SCH ×2 (08:58→20:17)
--- NOTE | 2018-04-10 09:25 | P.PNURO ---
Subjective Patient symptoms today: Pt seen and examined. Feels well overall. Dyer removed at bedside. Objective Vital Signs: Vital Signs 04/09/18 12:00 04/09/18 18:39 04/09/18 18:45 Temperature 97.8 F 97.6 F Pulse Rate 81 98 H 100 H Respiratory Rate 18 17 19 Blood Pressure 141/84 H 146/79 H 142/80 H Pulse Oximetry 95 96 95 04/09/18 19:00 04/09/18 19:28 04/09/18 19:58 Temperature 97.8 F Pulse Rate 98 H 85 Respiratory Rate 19 19 19 Blood Pressure 132/91 H 139/89 Pulse Oximetry 96 96 04/09/18 20:08 04/10/18 00:00 04/10/18 08:39 Temperature 97.2 F L 97.2 F L 97.7 F Pulse Rate 93 H 101 H 100 H Respiratory Rate 19 20 18 Blood Pressure 152/90 H 146/96 H 113/69 Pulse Oximetry 95 94 L 96 Intake & Output 04/09/18 04/10/18 04/10/18 18:59 06:59 18:59 Intake Total 200 / 200 3080 / 3080 Output Total 100 / 100 3950 / 3950 Balance 100 / 100 -870 / -870 Weight 88.2 kg Intake: IV 200 / 200 1800 / 1800 NS Inj 1,000 ML @ 100 mls/hr IV 1600 / 1600 .CONT .Q10H [facility] Rx#:[id number] Ampicillin Inj 1,000 MG In NS 100 / 100 Inj 100 ML @ 200 mls/hr IV.SIG ONCE ONE Rx#:[id number] Gentamicin/NS 80 mg Premix 100 100 / 100 100 / 100 ML @ 200 mls/hr IV.SIG Q8H ABRAHAN Rx#:[id number] Rocephin Inj 1,000 MG In NS Inj 100 / 100 100 ML @ 200 mls/hr IV.SIG Q24H ABRAHAN Rx#:[id number] Oral 480 / 480 Anesthesia Amount 800 / 800 Output: Urine 100 / 100 3300 / 3300 Estimated Blood Loss 10 / 10 Urine Amount (Catheter) 600 / 600 Indwelling Urethral Catheter 600 / 600 Wound Drainage 40 / 40 # 1 Right Lower Back 40 / 40 Other: # Voids 1 Result Diagrams: 04/09/18 18:51 04/09/18 18:51 Imaging: Impressions Abdomen X-Ray 04/09/18 00:00 CONCLUSION: Right nephroureterostomy tube. Small stone at the UPJ. Drainage Catheter Insertion 04/09/18 00:00 CONCLUSION: 1. Uncomplicated right nephroureteral stent placement as above. Multiple UPJ stones. Medications and IVs: Active Medications Generic Name Dose Route Start Last Admin Trade Name Freq PRN Reason Stop Dose Admin Acetaminophen 650 mg 04/08/18 21:49 Tylenol PO Q4H PRN Temp > 100.4 Enalaprilat 1.25 mg 04/09/18 16:22 Vasotec Inj IV.PUSH Q6H PRN SEE LABEL COMMENTS Famotidine 20 mg 04/09/18 21:00 04/10/18 08:58 Pepcid PO 20 mg BID ABRAHAN Administration Sodium Chloride 1,000 mls @ 0 mls/hr 04/08/18 19:45 04/09/18 06:42 Ns Inj IV.SIG Infused BOLUS ABRAHAN Infusion Wide Open Ceftriaxone Sodium 1,000 mg/ 100 mls @ 200 mls/hr 04/08/18 23:00 04/09/18 23: 53 Sodium Chloride IV.SIG Infused Q24H ABRAHAN Infusion Sodium Chloride 1,000 mls @ 100 mls/hr 04/08/18 22:00 04/10/18 07:19 Ns Inj IV.CONT Not Given .Q10H ABRAHAN Gentamicin Sulfate/Sodium Chloride 100 mls @ 200 mls/hr 04/09/18 09:00 08:58 Gentamicin/Ns 80 Mg Premix IV.SIG 200 mls/hr Q8H ABRAHAN Administration Lactated Ringer's 1,000 mls @ 30 mls/hr 04/09/18 14:30 04/10/18 07:20 Lr 1000 Ml Inj IV.SIG 04/10/18 14:29 Not Given .Q24H ABRAHAN Sodium Chloride 500 mls @ 30 mls/hr 04/09/18 15:00 04/10/18 07:19 Ns Inj IV.SIG Not Given .Q10H ABRAHAN Lisinopril 20 mg 04/09/18 17:00 04/10/18 08:55 Prinivil PO 20 mg DAILY ABRAHAN Administration Miscellaneous Information 1 each 04/09/18 18:40 Misc Nursing Information OTHER 04/10/18 18:39 UNSCH PRN SEE LABEL COMMENTS Morphine Sulfate 4 mg 04/08/18 22:06 04/10/18 08:53 Morphine Inj IV.PUSH 4 mg Q3H PRN Administration pain 1 to 10 Ondansetron HCl 4 mg 04/08/18 21:49 04/09/18 06:36 Zofran Inj IV.PUSH 4 mg Q6H PRN Administration NAUSEA OR VOMITING Sodium Chloride 2 ml 04/08/18 19:29 Ns Flush IV.FLUSH PRN PRN FLUSH AFTER USING IV ACCESS Objective Remarks: Abd:soft,nd,nt Dyer with clear urine Right PCNT: bloody drainage Assessment and Plan - Plan Stable s/p Right PCNL Void trial today Pain control D/C in the next few days once pain is better controlled.
[2018-04-10] MEDS ORDERED: Ketorolac Inj 30 MG/ML (IVP) Vial IV.PUSH PRN (10:37)
[2018-04-10] MEDS ORDERED: Naloxone Inj 0.4 MG/ML Vial IV.PUSH PRN ×2 (10:37→10:58)
--- NOTE | 2018-04-10 10:44 | P.PNIM ---
Subjective Interval history: Still complained of right flank pain and back pain. Just had D[place] removed to determine if he can void. Tolerating diet. Physical Exam Vital signs: Vital Signs 04/09/18 12:00 04/09/18 18:39 04/09/18 18:45 Temperature 97.8 F 97.6 F Pulse Rate 81 98 H 100 H Respiratory Rate 18 17 19 Blood Pressure 141/84 H 146/79 H 142/80 H Pulse Oximetry 95 96 95 04/09/18 19:00 04/09/18 19:28 04/09/18 19:58 Temperature 97.8 F Pulse Rate 98 H 85 Respiratory Rate 19 19 19 Blood Pressure 132/91 H 139/89 Pulse Oximetry 96 96 04/09/18 20:08 04/10/18 00:00 04/10/18 08:39 Temperature 97.2 F L 97.2 F L 97.7 F Pulse Rate 93 H 101 H 100 H Respiratory Rate 19 20 18 Blood Pressure 152/90 H 146/96 H 113/69 Pulse Oximetry 95 94 L 96 Intake & Output 04/09/18 04/10/18 04/10/18 18:59 06:59 18:59 Intake Total 200 / 200 3080 / 3080 100 / 100 Output Total 100 / 100 3950 / 3950 Balance 100 / 100 -870 / -870 100 / 100 Weight 88.2 kg Intake: IV 200 / 200 1800 / 1800 100 / 100 NS Inj 1,000 ML @ 100 mls/hr IV 1600 / 1600 .CONT .Q10H [facility] Rx#:[id number] Ampicillin Inj 1,000 MG In NS 100 / 100 Inj 100 ML @ 200 mls/hr IV.SIG ONCE ONE Rx#:[id number] Gentamicin/NS 80 mg Premix 100 100 / 100 100 / 100 100 / 100 ML @ 200 mls/hr IV.SIG Q8H [facility] Rx#:[id number] Rocephin Inj 1,000 MG In NS Inj 100 / 100 100 ML @ 200 mls/hr IV.SIG Q24H [facility] Rx#:[id number] Oral 480 / 480 Anesthesia Amount 800 / 800 Output: Urine 100 / 100 3300 / 3300 Estimated Blood Loss 10 / 10 Urine Amount (Catheter) 600 / 600 Indwelling Urethral Catheter 600 / 600 Wound Drainage 40 / 40 # 1 Right Lower Back 40 / 40 Other: # Voids 1 Date of Last Bowel Movement 04/09/18 Narrative: GENERAL: This is a well-nourished, well-developed patient, in no apparent distress. CARDIOVASCULAR: Regular rate and rhythm RESPIRATORY: Clear to auscultation. Breath sounds equal bilaterally. No wheezes , rales, or rhonchi. GASTROINTESTINAL: Abdomen soft, mid lower abdomen tenderness with no rebound guarding, mild right CVA tenderness, nondistended. Normal active bowel sounds, right nephrostomy bag with bloody urine MUSCULOSKELETAL: Extremities without clubbing, cyanosis, or edema. NEURO: Alert & Oriented x4 to person, place, time, situation. Moves all ext x4 - Urinary Catheter Management Indwelling Urethral Catheter Cath placed during this visit: yes Reason for continuing: Hourly intake/output Insertion date: 04/09/18 Insertion time: 16:35 Results - Labs CBC & Chem 7: 04/09/18 18:51 04/09/18 18:51 Laboratory Results - last 24 hr 04/09/18 04/09/18 04/09/18 10:21 10:21 10:21 WBC RBC Hgb Hct MCV MCH MCHC RDW Plt Count MPV PT Cancelled 11.3 INR Cancelled 1.1 APTT Cancelled 25.5 Fibrinogen 206 L D-Dimer Quant (PE/DVT) 0.26 Factor Inhibitor Screen ND Sodium Potassium Chloride Carbon Dioxide Anion Gap BUN Creatinine Estimated GFR Random Glucose Calcium 04/09/18 04/09/18 18:51 18:51 WBC 7.6 RBC 4.64 Hgb 14.2 Hct 41.8 MCV 90.1 MCH 30.6 MCHC 33.9 RDW 12.4 Plt Count 145 L MPV 9.0 PT INR APTT Fibrinogen D-Dimer Quant (PE/DVT) Factor Inhibitor Screen Sodium 140 Potassium 4.3 Chloride 107 Carbon Dioxide 23.7 Anion Gap 9 BUN 14 Creatinine 1.13 Estimated GFR 69 L Random Glucose 101 Calcium 7.6 L Microbiology 04/08/18 18:53 Random Urine Urine Culture - Final No growth in 48 hours - Imaging Impressions Abdomen X-Ray 04/09/18 00:00 CONCLUSION: Right nephroureterostomy tube. Small stone at the UPJ. Drainage Catheter Insertion 04/09/18 00:00 CONCLUSION: 1. Uncomplicated right nephroureteral stent placement as above. Multiple UPJ stones. - Procedures 04/09 Right percutaneous nephrolithotomy with antegrade right ureteroscopy with stone extraction with Dr. Mk Gong Assessment and Plan - Plan 1. Symptomatic right nephrolithiasis with with hydronephrosis Status post operative day #1 right percutaneous nephrolithotomy with anterior grade right ureteroscope with stone extraction with urology Dr. Gong, continue IV fluid hydration; adjust pain medication to IV Toradol, [place] for pain 2. Abnormal urinalysis to rule out urinary tract infection Urine culture shows no growth 3. DVT prophylaxisbilateral SCDs, anticoagulation contraindicated due to hematuria Discharge Planning: Home when cleared by urology.
[2018-04-10] MEDS ORDERED: Morphine Inj 4 MG/ML Vial IV.PUSH ONE (11:15)
[2018-04-10] MEDS: Sod Chloride 0.9% Inj 1,000 ML IV.SIG SCH (12:55)
[2018-04-11] MEDS: Gentamicin/NS 80 mg Premix 100 ML IV.SIG SCH ×2 (00:26→09:05)
[2018-04-11] MEDS: Morphine Inj 4 MG/ML Vial IV.PUSH PRN ×3 (04:07→12:19)
[2018-04-11] MEDS: Lisinopril 20 MG Tablet PO SCH (09:05)
[2018-04-11] MEDS: Famotidine 20 MG Tablet PO SCH ×2 (09:05→20:27)
[2018-04-11] MEDS: Sod Chloride 0.9% Inj 1,000 ML IV.CONT SCH ×3 (09:07→23:00)
[2018-04-11 11:07] LABS: Baso # (Auto) 0.2 th/mm3 (0.0-0.2); Baso % (Auto) 2.8 % (0.0-2.0); Eos # (Auto) 0.2 th/mm3 (0.0-0.4); Hematocrit 37.4 % (39.0-51.0); Hemoglobin 13.3 gm/dL (13.0-17.0); Lymph # (Auto) 1.6 th/mm3 (1.0-4.8); Lymph % (Auto) 18.9 % (9.0-44.0); Mean Corpuscular HGB Conc 35.6 % (32.0-36.0); Mean Corpuscular Hemoglobin 31.8 pg (27.0-34.0); Mean Corpuscular Volume 89.2 fL (80.0-100.0); Mean Platelet Volume 9.6 fL (7.0-11.0); Mono # (Auto) 0.5 th/mm3 (0.0-0.9); Mono % (Auto) 5.8 % (0.0-8.0); Neut # (Auto) 5.8 th/mm3 (1.8-7.7); Neut % (Auto) 70.5 % (16.0-70.0); Platelet Count 148 th/mm3 (150-450); Red Blood Count 4.19 mil/mm3 (4.50-5.90); White Blood Count 8.3 th/mm3 (4.0-11.0)
--- NOTE | 2018-04-11 11:13 | P.PNIM ---
Subjective Interval history: Still complaints of bloody urine and back and flank pain with swelling sensation. No fevers or chills. Tolerating diet. Physical Exam Vital signs: Vital Signs 04/10/18 12:00 04/10/18 16:00 04/10/18 20:00 Temperature 97.7 F 98.0 F 97.5 F L Pulse Rate 103 H 93 H 77 Respiratory Rate 17 19 18 Blood Pressure 118/61 138/74 149/82 H Pulse Oximetry 96 96 98 04/10/18 20:29 04/10/18 22:41 04/10/18 23:29 Temperature Pulse Rate Respiratory Rate 18 17 17 Blood Pressure Pulse Oximetry 04/11/18 00:42 04/11/18 03:05 04/11/18 04:10 Temperature 97.7 F Pulse Rate 72 Respiratory Rate 20 17 18 Blood Pressure 168/80 H Pulse Oximetry 97 04/11/18 08:00 Temperature 97.6 F Pulse Rate 73 Respiratory Rate 17 Blood Pressure 160/91 H Pulse Oximetry 97 Intake & Output 04/10/18 04/11/18 04/11/18 18:59 06:59 18:59 Intake Total 1790 / 1790 1960 / 1960 1100 / 1100 Output Total 610 / 610 880 / 880 Balance 1180 / 1180 1080 / 1080 1100 / 1100 Weight 88 kg Intake: IV 1200 / 1200 1200 / 1200 1100 / 1100 NS Inj 1,000 ML @ 100 mls/hr IV 1000 / 1000 1000 / 1000 1000 / 1000 .CONT .Q10H [facility] Rx#:[id number] Gentamicin/NS 80 mg Premix 100 200 / 200 100 / 100 100 / 100 ML @ 200 mls/hr IV.SIG Q8H [facility] Rx#:[id number] Rocephin Inj 1,000 MG In NS Inj 100 / 100 100 ML @ 200 mls/hr IV.SIG Q24H [facility] Rx#:[id number] Oral 590 / 590 760 / 760 Output: Urine 600 / 600 880 / 880 Wound Drainage 0 / 0 # 1 Right Lower Back # 1 Right Posterior Lateral 0 / 0 Back Other: Date of Last Bowel Movement 04/09/18 # Bowel Movements 0 Narrative: GENERAL: This is a well-nourished, well-developed patient, in no apparent distress. CARDIOVASCULAR: Regular rate and rhythm RESPIRATORY: Clear to auscultation. Breath sounds equal bilaterally. No wheezes , rales, or rhonchi. GASTROINTESTINAL: Abdomen soft, mid lower abdomen tenderness with no rebound guarding, mild right CVA tenderness, nondistended. Normal active bowel sounds, right nephrostomy bag with bloody urine MUSCULOSKELETAL: Extremities without clubbing, cyanosis, or edema. NEURO: Alert & Oriented x4 to person, place, time, situation. Moves all ext x4 - Urinary Catheter Management Indwelling Urethral Catheter Cath placed during this visit: yes Reason for continuing: Not indwelling catheter Insertion date: 04/09/18 Insertion time: 16:35 Results - Labs CBC & Chem 7: 04/11/18 10:44 04/09/18 18:51 Laboratory Results - last 24 hr 04/11/18 10:44 WBC 8.3 RBC 4.19 L Hgb 13.3 Hct 37.4 L MCV 89.2 MCH 31.8 MCHC 35.6 RDW 13.0 Plt Count 148 L MPV 9.6 Prelim Diff (Auto) Slide review pending Neut % (Auto) 70.5 H Lymph % (Auto) 18.9 [place] % (Auto) 5.8 Eos % (Auto) 2.0 Baso % (Auto) 2.8 H Neut # (Auto) 5.8 Lymph # (Auto) 1.6 [place] # (Auto) 0.5 Eos # (Auto) 0.2 Baso # (Auto) 0.2 Differential Comment . Microbiology 04/08/18 18:53 Random Urine Urine Culture - Final No growth in 48 hours - Procedures 04/09 Right percutaneous nephrolithotomy with antegrade right ureteroscopy with stone extraction with Dr. Mk Gong Assessment and Plan - Plan 1. Symptomatic right nephrolithiasis with with hydronephrosis Status post operative day #2 right percutaneous nephrolithotomy with anterior grade right ureteroscope with stone extraction with urology Dr. Gong, continue IV fluid hydration; adjust pain medication to IV morphine for breakthrough pain, [place] for pain Discharge to home when cleared by urology. 2. Abnormal urinalysis to rule out urinary tract infection Urine culture shows no growth 3. DVT prophylaxisbilateral SCDs, anticoagulation contraindicated due to hematuria Discharge Planning: Home when cleared by urology.
--- NOTE | 2018-04-11 13:41 | P.PNURO ---
Subjective Patient symptoms today: Pt seen and examined. Some swelling along right side of abdomen. NT bloody drainage; which is minimal. Objective Vital Signs: Vital Signs 04/10/18 16:00 04/10/18 20:00 04/10/18 20:29 Temperature 98.0 F 97.5 F L Pulse Rate 93 H 77 Respiratory Rate 19 18 18 Blood Pressure 138/74 149/82 H Pulse Oximetry 96 98 04/10/18 22:41 04/10/18 23:29 04/11/18 00:42 Temperature 97.7 F Pulse Rate 72 Respiratory Rate 17 17 20 Blood Pressure 168/80 H Pulse Oximetry 97 04/11/18 03:05 04/11/18 04:10 04/11/18 08:00 Temperature 97.6 F Pulse Rate 73 Respiratory Rate 17 18 17 Blood Pressure 160/91 H Pulse Oximetry 97 04/11/18 12:00 Temperature 96.9 F L Pulse Rate 86 Respiratory Rate 18 Blood Pressure 142/79 H Pulse Oximetry 98 Intake & Output 04/10/18 04/11/18 04/11/18 18:59 06:59 18:59 Intake Total 1790 / 1790 1960 / 1960 1100 / 1100 Output Total 610 / 610 880 / 880 Balance 1180 / 1180 1080 / 1080 1100 / 1100 Weight 88 kg Intake: IV 1200 / 1200 1200 / 1200 1100 / 1100 NS Inj 1,000 ML @ 100 mls/hr IV 1000 / 1000 1000 / 1000 1000 / 1000 .CONT .Q10H [facility] Rx#:[id number] Gentamicin/NS 80 mg Premix 100 200 / 200 100 / 100 100 / 100 ML @ 200 mls/hr IV.SIG Q8H [facility] Rx#:[id number] Rocephin Inj 1,000 MG In NS Inj 100 / 100 100 ML @ 200 mls/hr IV.SIG Q24H [facility] Rx#:[id number] Oral 590 / 590 760 / 760 Output: Urine 600 / 600 880 / 880 Wound Drainage 0 / 0 # 1 Right Lower Back 10 10 # 1 Right Posterior Lateral 0 / 0 Back Other: Date of Last Bowel Movement 04/09/18 # Bowel Movements 0 Result Diagrams: 04/11/18 10:44 04/09/18 18:51 Medications and IVs: Active Medications Generic Name Dose Route Start Last Admin Trade Name Freq PRN Reason Stop Dose Admin Acetaminophen 650 mg 04/08/18 21:49 Tylenol PO Q4H PRN temp >100.4 and pain 1 to 2 Hydrocodone Bitart/Acetaminophen 1 tab 04/10/18 10:37 04/11/18 10:22 [place] 7.5/325 PO 1 tab Q4H PRN Administration PAIN SCALE 6 TO 10 Hydrocodone Bitart/Acetaminophen 1 tab 04/10/18 10:37 [place] 5/325 PO Q4H PRN PAIN SCALE 3 TO 5 Enalaprilat 1.25 mg 04/09/18 16:22 Vasotec Inj IV.PUSH Q6H PRN SEE LABEL COMMENTS Famotidine 20 mg 04/09/18 21:00 04/11/18 09:05 Pepcid PO 20 mg BID [facility] Administration Sodium Chloride 1,000 mls @ 0 mls/hr 04/08/18 19:45 04/10/18 18:02 Ns Inj IV.SIG 0 mls/hr BOLUS [facility] Infusion Wide Open Ceftriaxone Sodium 1,000 mg/ 100 mls @ 200 mls/hr 04/08/18 23:00 04/10/18 22: 43 Sodium Chloride IV.SIG Infused Q24H [facility] Infusion Sodium Chloride 1,000 mls @ 100 mls/hr 04/08/18 22:00 04/11/18 09:07 Ns Inj IV.CONT 100 mls/hr .Q10H [facility] Administration Gentamicin Sulfate/Sodium Chloride 100 mls @ 200 mls/hr 04/09/18 09:00 09:56 Gentamicin/Ns 80 Mg Premix IV.SIG Infused Q8H [facility] Infusion Sodium Chloride 500 mls @ 30 mls/hr 04/09/18 15:00 04/10/18 07:19 Ns Inj IV.SIG Not Given .Q10H [facility] Lisinopril 20 mg 04/09/18 17:00 04/11/18 09:05 Prinivil PO 20 mg DAILY [facility] Administration Morphine Sulfate 4 mg 04/10/18 10:58 04/11/18 12:19 Morphine Inj IV.PUSH 4 mg Q3H PRN Administration BREAKTHROUGH PAIN Naloxone HCl 0.4 mg 04/10/18 10:58 Narcan Inj IV.PUSH UNSCH PRN SEE LABEL COMMENTS Ondansetron HCl 4 mg 04/08/18 21:49 04/09/18 06:36 Zofran Inj IV.PUSH 4 mg Q6H PRN Administration NAUSEA OR VOMITING Sodium Chloride 2 ml 04/08/18 19:29 Ns Flush IV.FLUSH PRN PRN FLUSH AFTER USING IV ACCESS Objective Remarks: Abd:soft,nd,nt [place] with clear urine Right PCNT: bloody drainage 04/11 Abd:soft,nt,nd; swelling along right side of abdomen Right PNCT; bloody discharge; minimal voiding well. Assessment and Plan - Plan Stable s/p Right PCNL Void trial today Pain control D/C in the next few days once pain is better controlled. 04/11 Stable s/p Right PCNL Hgb stable OOB Pain control. D/c home in the next few days.
[2018-04-12] MEDS: Sod Chloride 0.9% Inj 1,000 ML IV.CONT SCH ×2 (07:14→17:31)
--- NOTE | 2018-04-12 08:52 | P.PNURO ---
Subjective Patient symptoms today: Pt seen and examined. Some pain noted. NT not plugged. Objective Vital Signs: Vital Signs 04/11/18 12:00 04/11/18 16:00 04/11/18 20:00 Temperature 96.9 F L 97.2 F L 98.0 F Pulse Rate 86 77 73 Respiratory Rate 18 17 18 Blood Pressure 142/79 H 162/102 H 161/97 H Pulse Oximetry 98 97 94 L 04/11/18 22:31 04/12/18 00:39 04/12/18 03:35 Temperature 97.8 F Pulse Rate 88 Respiratory Rate 17 17 Blood Pressure 146/87 H Pulse Oximetry 96 Intake & Output 04/11/18 04/12/18 04/12/18 18:59 06:59 18:59 Intake Total 2600 / 2600 280 / 280 Output Total 300 / 300 1200 / 1200 Balance 2300 / 2300 -920 / -920 Weight 88 kg Intake: IV 2100 / 2100 100 / 100 NS Inj 1,000 ML @ 100 mls/hr IV 1999 / 1999 .CONT .Q10H [facility] Rx#:[id number] Gentamicin/NS 80 mg Premix 100 100 / 100 ML @ 200 mls/hr IV.SIG Q8H [facility] Rx#:[id number] Rocephin Inj 1,000 MG In NS Inj 100 / 100 100 ML @ 200 mls/hr IV.SIG Q24H [facility] Rx#:[id number] Oral 500 / 500 180 / 180 Output: Urine 300 / 300 1200 / 1200 Wound Drainage 0 / 0 # 1 Right Posterior Lateral 0 / 0 Back Result Diagrams: 04/11/18 10:44 04/09/18 18:51 Medications and IVs: Active Medications Generic Name Dose Route Start Last Admin Trade Name Freq PRN Reason Stop Dose Admin Acetaminophen 650 mg 04/08/18 21:49 Tylenol PO Q4H PRN temp >100.4 and pain 1 to 2 Hydrocodone Bitart/Acetaminophen 1 tab 04/10/18 10:37 04/12/18 03:05 [place] 7.5/325 PO 1 tab Q4H PRN Administration PAIN SCALE 6 TO 10 Hydrocodone Bitart/Acetaminophen 1 tab 04/10/18 10:37 [place] 5/325 PO Q4H PRN PAIN SCALE 3 TO 5 Enalaprilat 1.25 mg 04/09/18 16:22 Vasotec Inj IV.PUSH Q6H PRN SEE LABEL COMMENTS Famotidine 20 mg 04/09/18 21:00 04/11/18 20:27 Pepcid PO 20 mg BID [facility] Administration Sodium Chloride 1,000 mls @ 0 mls/hr 04/08/18 19:45 04/10/18 18:02 Ns Inj IV.SIG 0 mls/hr [facility] Infusion Wide Open Ceftriaxone Sodium 1,000 mg/ 100 mls @ 200 mls/hr 04/08/18 23:00 04/11/18 23: 28 Sodium Chloride IV.SIG Infused Q24H [facility] Infusion Sodium Chloride 1,000 mls @ 100 mls/hr 04/08/18 22:00 04/12/18 07:14 Ns Inj IV.CONT Not Given .Q10H [facility] Sodium Chloride 500 mls @ 30 mls/hr 04/09/18 15:00 04/10/18 07:19 Ns Inj IV.SIG Not Given .Q10H [facility] Lisinopril 20 mg 04/09/18 17:00 04/11/18 09:05 Prinivil PO 20 mg DAILY [facility] Administration Naloxone HCl 0.4 mg 04/10/18 10:58 Narcan Inj IV.PUSH UNSCH PRN SEE LABEL COMMENTS Ondansetron HCl 4 mg 04/08/18 21:49 04/09/18 06:36 Zofran Inj IV.PUSH 4 mg Q6H PRN Administration NAUSEA OR VOMITING Sodium Chloride 2 ml 04/08/18 19:29 Ns Flush IV.FLUSH PRN PRN FLUSH AFTER USING IV ACCESS Objective Remarks: Abd:soft,nd,nt [place] with clear urine Right PCNT: bloody drainage 04/11 Abd:soft,nt,nd; swelling along right side of abdomen Right PNCT; bloody discharge; minimal voiding well. 04/12 Abd:soft,nt,nd; swelling along right side of abdomen Right PNCT; bloody discharge; minimal voiding well. Assessment and Plan - Plan Stable s/p Right PCNL Void trial today Pain control D/C in the next few days once pain is better controlled. 04/11 Stable s/p Right PCNL Hgb stable OOB Pain control. D/c home in the next few days. 03/27 Stable s/p Right PCNL Hgb stable OOB Pain control. D/c home tomorrow
--- NOTE | 2018-04-12 09:30 | P.PNIM ---
Subjective Interval history: Patient reports some continued right flank pain. Denies any chest pain or shortness of breath. Physical Exam Vital signs: Vital Signs 04/11/18 12:00 04/11/18 16:00 04/11/18 20:00 Temperature 96.9 F L 97.2 F L 98.0 F Pulse Rate 86 77 73 Respiratory Rate 18 Blood Pressure 142/79 H 162/102 H 161/97 H Pulse Oximetry 98 97 94 L 04/11/18 22:31 04/12/18 00:39 04/12/18 03:35 Temperature 97.8 F Pulse Rate 88 Respiratory Rate 17 17 17 Blood Pressure 146/87 H Pulse Oximetry 96 04/12/18 08:00 Temperature 97.5 F L Pulse Rate 81 Respiratory Rate 20 Blood Pressure 154/94 H Pulse Oximetry 95 Intake & Output 04/11/18 04/12/18 04/12/18 18:59 06:59 18:59 Intake Total 2600 / 2600 280 / 280 Output Total 300 / 300 1200 / 1200 Balance 2300 / 2300 -920 / -920 Weight 88 kg Intake: IV 2100 / 2100 100 / 100 NS Inj 1,000 ML @ 100 mls/hr IV 2000 / 1999 .CONT .Q10H [facility] Rx#:[id number] Gentamicin/NS 80 mg Premix 100 100 / 100 ML @ 200 mls/hr IV.SIG Q8H [facility] Rx#:[id number] Rocephin Inj 1,000 MG In NS Inj 100 / 100 100 ML @ 200 mls/hr IV.SIG Q24H [facility] Rx#:[id number] Oral 500 / 500 180 / 180 Output: Urine 300 / 300 1200 / 1200 Wound Drainage 0 / 0 # 1 Right Posterior Lateral 0 / 0 Back Narrative: GENERAL: Patient bed on left side. Appears uncomfortable. SKIN: Warm and dry. HEAD: Normocephalic. EYES: No scleral icterus. No injection or drainage. NECK: Supple, trachea midline. No JVD . CARDIOVASCULAR: Regular rate and rhythm without murmurs, gallops, or rubs. RESPIRATORY: Breath sounds equal bilaterally. No accessory muscle use. GASTROINTESTINAL: Abdomen soft, non-tender, nondistended. Right flank nephrostomy tube in place. MUSCULOSKELETAL: No cyanosis, or edema. BACK: Nontender without obvious deformity. No CVA tenderness. - Urinary Catheter Management Indwelling Urethral Catheter Cath placed during this visit: yes Reason for continuing: Not indwelling catheter Insertion date: 04/09/18 Insertion time: 16:35 Results - Labs CBC & Chem 7: 04/11/18 10:44 04/09/18 18:51 Laboratory Results - last 24 hr 04/11/18 10:44 WBC 8.3 RBC 4.19 L Hgb 13.3 Hct 37.4 L MCV 89.2 MCH 31.8 MCHC 35.6 RDW 13.0 Plt Count 148 L MPV 9.6 Prelim Diff (Auto) Slide review pending Neut % (Auto) 70.5 H Lymph % (Auto) 18.9 [place] % (Auto) 5.8 Eos % (Auto) 2.0 Baso % (Auto) 2.8 H Neut # (Auto) 5.8 Lymph # (Auto) 1.6 [place] # (Auto) 0.5 Eos # (Auto) 0.2 Baso # (Auto) 0.2 WBC Differential . Diff Scan Auto diff confirmed Differential Comment . - Procedures 04/09 Right percutaneous nephrolithotomy with antegrade right ureteroscopy with stone extraction with Dr. Mk Gong Assessment and Plan - Plan //Symptomatic right nephrolithiasis with with hydronephrosis Status post operative day #2 right percutaneous nephrolithotomy with anterior grade right ureteroscope with stone extraction with urology Dr. Gong, continue IV fluid hydration; adjust pain medication to IV morphine for breakthrough pain, [place] for pain Discharge to home when cleared by urology. = 04/12. Seen and examined. Discharge home hopefully tomorrow when cleared by urology. //Abnormal urinalysis to rule out urinary tract infection Urine culture shows no growth //DVT prophylaxisbilateral SCDs, anticoagulation contraindicated due to hematuria Discussed Condition With: Patient, nurse Discharge Planning: Home when cleared by urology.
[2018-04-12] MEDS: Famotidine 20 MG Tablet PO SCH ×2 (11:15→20:34)
[2018-04-12] MEDS: Lisinopril 20 MG Tablet PO SCH (11:15)
[2018-04-12 21:36] VITALS: O2SAT 96
[2018-04-13] MEDS: Sod Chloride 0.9% Inj 1,000 ML IV.CONT SCH (05:07)
[2018-04-13 08:03] VITALS: BP 160/93; PULSE 78; RESP 19; TEMP 98.1
[2018-04-13] MEDS: Famotidine 20 MG Tablet PO SCH (09:03)
[2018-04-13] MEDS: Lisinopril 20 MG Tablet PO SCH (09:03)
--- NOTE | 2018-04-13 09:34 | P.PNIM ---
Subjective Interval history: Patient says he is feeling all right. Reports the pain is controlled. Denies any chest pain or shortness of breath. Denies any difficulty urinating. Physical Exam Vital signs: Vital Signs 04/12/18 12:00 04/12/18 16:00 04/12/18 20:00 Temperature 98.1 F 98.3 F 97.8 F Pulse Rate 83 81 101 H Respiratory Rate 18 18 17 Blood Pressure 145/100 H 170/105 H 154/116 H Pulse Oximetry 96 99 96 04/13/18 00:00 04/13/18 08:02 Temperature 97.8 F 98.1 F Pulse Rate 92 H 78 Respiratory Rate 17 19 Blood Pressure 154/100 H 160/93 H Pulse Oximetry 96 96 Intake & Output 04/12/18 04/13/18 04/13/18 18:59 06:59 18:59 Intake Total 1000 / 1000 1794 / 1794 Output Total 800 / 800 Balance 1000 / 1000 994 / 994 Intake: IV 1000 / 1000 1100 / 1100 NS Inj 1,000 ML @ 100 mls/hr IV 1000 / 1000 1000 / 1000 .CONT .Q10H [facility] Rx#:[id number] Rocephin Inj 1,000 MG In NS Inj 100 / 100 100 ML @ 200 mls/hr IV.SIG Q24H [facility] Rx#:[id number] Oral 694 / 694 Output: Urine 800 / 800 Other: Date of Last Bowel Movement 04/11/18 04/11/18 Narrative: GENERAL: Patient sitting up in bed.. Appears uncomfortable. Alert and oriented 3. SKIN: Warm and dry. HEAD: Normocephalic. EYES: No scleral icterus. No injection or drainage. NECK: Supple, trachea midline. No JVD . CARDIOVASCULAR: Regular rate and rhythm without murmurs, gallops, or rubs. RESPIRATORY: Breath sounds equal bilaterally. No accessory muscle use. GASTROINTESTINAL: Abdomen soft, non-tender, nondistended. Right flank nephrostomy tube in place as before. MUSCULOSKELETAL: No cyanosis, or edema. BACK: Nontender without obvious deformity. No CVA tenderness. - Urinary Catheter Management Indwelling Urethral Catheter Cath placed during this visit: yes Reason for continuing: Not indwelling catheter Insertion date: 04/09/18 Insertion time: 16:35 Results - Labs CBC & Chem 7: 04/11/18 10:44 04/09/18 18:51 - Procedures 04/09 Right percutaneous nephrolithotomy with antegrade right ureteroscopy with stone extraction with Dr. Mk Gong Assessment and Plan - Plan //Symptomatic right nephrolithiasis with with hydronephrosis Status post operative day #2 right percutaneous nephrolithotomy with anterior grade right ureteroscope with stone extraction with urology Dr. Gong, continue IV fluid hydration; adjust pain medication to IV morphine for breakthrough pain, [place] for pain Discharge to home when cleared by urology. = 04/12. Seen and examined. Discharge home hopefully tomorrow when cleared by urology. = 04/13. Discharge home when cleared by urology. //Abnormal urinalysis to rule out urinary tract infection Urine culture shows no growth. DC antibiotics //DVT prophylaxisbilateral SCDs, anticoagulation contraindicated due to hematuria Discharge Planning: Discharge home when cleared by urology.
--- NOTE | 2018-04-13 09:37 | P.DS ---
Date of admission: 04/08/18 21:10 Primary care physician: UNKNOWN Brief History from admission: 47-year-old male with a past medical history significant for hypertension and nephrolithiasis presents to the emergency department for evaluation of pelvic pain and CVA tenderness. The patient has a known kidney stone in the right kidney and is status post lithotripsy and stent placement. Despite this 16 mm stone in the right renal pelvis with mild to moderate hydronephrosis. Positive hematuria. He reports subjective fever earlier today. No chest pain or shortness of breath. No nausea/vomiting/diarrhea. No lateralizing signs/ symptoms. DS: Medications - Discharge Medications Prescriptions: hydrocodone-acetaminophen 1 - 2 tab PO Q4H PRN #24 tab PRN Reason: Pain Scale 6 To 10 omeprazole 20 mg PO DAILY 30 Days #30 cap DS: Summary Hospital Course: Patient presented with symptomatic right nephrolithiasis, hydronephrosis on imaging. Patient underwent right percutaneous nephrolithotomy with antegrade right ureteroscopy with stone extraction, placement of right-sided percutaneous nephrostomy tube. Please see report. Urinalysis with hematuria, culture negative for infection. For problem based summary from most recent progress note, please see below. //Symptomatic right nephrolithiasis with with hydronephrosis Status post operative day #2 right percutaneous nephrolithotomy with anterior grade right ureteroscope with stone extraction with urology Dr. Gong, continue IV fluid hydration; adjust pain medication to IV morphine for breakthrough pain, [place] for pain Discharge to home when cleared by urology. = 04/12. Seen and examined. Discharge home hopefully tomorrow when cleared by urology. = 04/13. Discharge home when cleared by urology. //Abnormal urinalysis to rule out urinary tract infection Urine culture shows no growth. DC antibiotics //DVT prophylaxisbilateral SCDs, anticoagulation contraindicated due to hematuria - Time Spent with Patient Total time spent providing and/or coordinating discharge services: Greater than 30 minutes - Quality: VTE Deep Vein Thrombosis/Pulmonary Embolism Present on Admission: No Exam Vital signs: Vital Signs 04/12/18 12:00 04/12/18 16:00 04/12/18 20:00 Temperature 98.1 F 98.3 F 97.8 F Pulse Rate 83 81 101 H Respiratory Rate Blood Pressure 145/100 H 170/105 H 154/116 H Pulse Oximetry 96 99 96 04/13/18 00:00 04/13/18 08:02 Temperature 97.8 F 98.1 F Pulse Rate 92 H 78 Respiratory Rate 17 19 Blood Pressure 154/100 H 160/93 H Pulse Oximetry 96 96 Intake & Output 04/12/18 04/13/18 04/13/18 18:59 06:59 18:59 Intake Total 1000 / 1000 1794 / 1794 Output Total 800 / 800 Balance 1000 / 1000 994 / 994 Intake: IV 1000 / 1000 1100 / 1100 NS Inj 1,000 ML @ 100 mls/hr IV 1000 / 1000 1000 / 1000 .CONT .Q10H ABRAHAN Rx#:[id number] Rocephin Inj 1,000 MG In NS Inj 100 / 100 100 ML @ 200 mls/hr IV.SIG Q24H ABRAHAN Rx#:[id number] Oral 694 / 694 Output: Urine 800 / 800 Other: Date of Last Bowel Movement 04/11/18 04/11/18 04/11/18 Results Procedures completed during hospitalization: 04/09 Right percutaneous nephrolithotomy with antegrade right ureteroscopy with stone extraction with Dr. Mk Gong Pending studies at discharge: Pending at discharge 04/09/18 08:51 Surgical [PTH] Routine - Impressions ITS Impressions Abdomen/Bladder Ultrasound 04/08/18 19:30 CONCLUSION: 1. Right nephrolithiasis with mild to moderate hydronephrosis. 2. Cysts of the left kidney. No acute left renal abnormality demonstrated. Abdomen X-Ray 04/09/18 00:00 CONCLUSION: Right nephroureterostomy tube. Small stone at the UPJ. Drainage Catheter Insertion 04/09/18 00:00 CONCLUSION: 1. Uncomplicated right nephroureteral stent placement as above. Multiple UPJ stones. Discharge Plan - Discharge Disposition Patient Disposition: Discharge Home - Discharge Condition Condition: Stable - Discharge Order Discharge Orders: Discharge Order (Routine); Ordered 04/13/18 Ordered By: Canelo Johnson - Discharge Details Anticipated Discharge Date: 04/13/18 Discharge Comment: DC after cleared by Urology - Physicians Team Primary Care Provider: UNKNOWN, Attending Provider: Canelo Johnson Other Providers: Mk Gong DO
== END 2018-04-13 11:18 | disposition home or self-care (01) ==
LOC: NEPD 14:50 → NEDA 21:10 → N07 23:49
PROVIDERS: ADMIT Internal Medicine; ATTEND Internal Medicine